=== PATIENT | female | born 1965 | race Two or more races ===

== ENCOUNTER 2022-03-05 09:57 | Outpatient (REF) | payer MEDICARE, MEDICAID, SELFPAY ==
--- NOTE | ~2022-03-05 | XR_ITS ---
EXAMINATION: XR SHOULDER, LEFT CLINICAL INFORMATION: Pain. COMPARISON: None TECHNIQUE: AP external rotation, Grashey, scapular Y, and axillary views of the left shoulder. FINDINGS: There is mild reduction in the left AC joint space with inferior spurring. The glenohumeral joint space is normal. No visible acute fracture or dislocation seen. The soft tissues are normal. XR/XR shoulder LT min 2V IMPRESSION: Mild degenerative changes right AC joint. No acute fracture or dislocation seen.
[2022-03-05 10:35] LABS: Hematocrit 36.7 % (37.0-47.0); Hemoglobin 11.5 g/dl (12.0-16.0); Mean Corpuscular HGB Conc 31.3 g/dl (31.0-35.0); Mean Corpuscular Hemoglobin 26.9 pg (27.0-33.0); Mean Corpuscular Volume 85.7 fL (80.0-98.0); Mean Platelet Volume 9.1 fL (9.4-12.3); Platelet Count 236 X10*3/uL (160-400); Red Blood Count 4.28 X10*6/uL (4.20-5.50); Red Cell Distribution Width 13.2 % (11.0-16.0); White Blood Count 5.1 X10*3/uL (4.8-10.8)
[2022-03-05 10:45] LABS: Estimated Average Glucose 117 mg/dL; Hemoglobin A1c % 5.7 %
[2022-03-05 11:18] LABS: Alanine Aminotransferase 46 U/L (0-31); Alkaline Phosphatase 127 U/L (39-117); Anion Gap 16 (12-20); Aspartate Amino Transferase 39 U/L (5-31); Bilirubin Total 0.4 mg/dL (0.0-1.0); Blood Urea Nitrogen 14 mg/dL (9-16); Calcium 9.6 mg/dL (8.4-10.2); Carbon Dioxide 27 mmol/L (22-29); Chloride 103 mmol/L (96-108); Cholesterol 247 mg/dL; Estimated Glomerular Filt Rate > 60; Glucose Random 107 mg/dL (60-115); HDL Cholesterol 55 mg/dL; Iron 73 mcg/dL (30-160); LDL Cholesterol Calculated 161 mg/dl; Percent Iron Saturation 17 % (15-50); Potassium 4.3 mmol/L (3.3-5.1); Sodium 142 mmol/L (135-145); Total Iron Binding Capacity 425 mcg/dL (228-428); Total Protein 7.4 g/dL (6.5-8.0); Triglycerides 157 mg/dL; Unsaturated Iron Binding 352 ug/dL
[2022-03-05 11:41] LABS: Ferritin 15 ng/mL (10-250); TSH reflex Free T4 0.99 uIU/mL (0.32-4.0); Vitamin D 25-OH Total 41.9 ng/mL (>30)
[2022-03-05 11:51] LABS: Folate 6.8 ng/mL (> or = 4.0); Vitamin B12 > 2000 pg/mL (200-900)
[2022-03-08 12:42] LABS: Calcium (PTHI) 9.6 mg/dL (8.6-10.4); PTHI 59 pg/mL (16-77)
== END 2022-03-05 09:58 | disposition home or self-care (01) ==
LOC: HO.LAB 09:57
PROVIDERS: PCP Internal Medicine Geriatric Medicine; Visit Provider Internal Medicine Geriatric Medicine
DX: M25.512 Pain in left shoulder (principal); F33.9 Major depressive disorder, recurrent, unspecified; Z98.84 Bariatric surgery status
CPT/HCPCS: 36415; 73030; 80053; 80061; 82306; 82607; 82728; 82746; 83036; 83540; 83970; 84443; 85027

== ENCOUNTER 2022-12-23 10:15 | Outpatient (REF) | payer MEDICARE, MEDICAID, SELFPAY ==
[2022-12-23 11:17] LABS: MANUAL DIFF FLAG NO
[2022-12-23 11:47] LABS: Basophils Percent Auto 0.4 % (0-2); Eosinophils Absolute Auto 0.1 X10*3/uL (0.0-0.4); Eosinophils Percent Auto 2.2 % (0-4); Hematocrit 37.7 % (37.0-47.0); Hemoglobin 11.6 g/dl (12.0-16.0); Imm Gran Abs Auto 0.02 X10*3/uL (0.00-0.03); Imm Gran Pct Auto 0.4 % (0.0-0.4); Lymphocytes Absolute Auto 1.4 X10*3/uL (1.2-4.9); Lymphocytes Percent Auto 25.8 % (20-40); Mean Corpuscular HGB Conc 30.8 g/dl (31.0-35.0); Mean Corpuscular Hemoglobin 25.7 pg (27.0-33.0); Mean Corpuscular Volume 83.6 fL (80.0-98.0); Mean Platelet Volume 9.7 fL (9.4-12.3); Monocytes Absolute Auto 0.4 X10*3/uL (0.1-1.2); Neutrophils Absolute Auto 3.6 x10*3/uL (2.0-8.3); Neutrophils Percent Auto 64.2 % (45-73); Platelet Count 228 X10*3/uL (160-400); Red Blood Count 4.51 X10*6/uL (4.20-5.50); Red Cell Distribution Width 14.9 % (11.0-16.0); White Blood Count 5.6 X10*3/uL (4.8-10.8)
[2022-12-23 11:57] LABS: Estimated Average Glucose 117 mg/dL; Hemoglobin A1c % 5.7 % (<6.0)
[2022-12-23 13:02] LABS: Alanine Aminotransferase 28 U/L (0-31); Albumin Level 3.8 g/dL (3.5-5.0); Alkaline Phosphatase 138 U/L (39-117); Anion Gap 10 (12-20); Aspartate Amino Transferase 31 U/L (5-31); Bilirubin Total 0.2 mg/dL (0.0-1.0); Blood Urea Nitrogen 13 mg/dL (9-16); Calcium 9.5 mg/dL (8.4-10.2); Carbon Dioxide 27 mmol/L (22-29); Chloride 105 mmol/L (96-108); Cholesterol 276 mg/dL (<200); Estimated Glomerular Filt Rate > 60; Glucose Random 122 mg/dL (60-115); HDL Cholesterol 54 mg/dL (>40); Iron 40 mcg/dL (30-160); LDL Cholesterol Calculated 174 mg/dL (<100); Percent Iron Saturation 12 % (15-50); Potassium 3.7 mmol/L (3.3-5.1); Sodium 138 mmol/L (135-145); Total Iron Binding Capacity 343 mcg/dL (228-428); Total Protein 7.5 g/dL (6.5-8.0); Triglycerides 242 mg/dL (<150); Unsaturated Iron Binding 303 ug/dL
[2022-12-23 13:50] LABS: Folate 11.5 ng/mL (> or = 4.0); Vitamin B12 > 2000 pg/mL (200-900)
== END 2022-12-23 10:16 | disposition home or self-care (01) ==
LOC: HO.HHCL 10:15
PROVIDERS: Visit Provider Internal Medicine Geriatric Medicine
DX: F31.9 Bipolar disorder, unspecified (principal); K22.711 Barrett's esophagus with high grade dysplasia; Z98.84 Bariatric surgery status; Z86.39 Personal history of other endocrine, nutritional and metabolic disease
CPT/HCPCS: 36415; 80053; 80061; 80354; 80358; 82607; 82746; 83036; 83540; 85025

== ENCOUNTER 2023-01-10 09:36 | Outpatient (REF) | payer MEDICARE, MEDICAID, SELFPAY ==
--- NOTE | ~2023-01-10 | MM_ITS ---
EXAMINATION: MM SCREENING DIGITAL BREAST TOMOSYNTHESIS, BILATERAL CLINICAL INFORMATION: Screening. Asymptomatic. COMPARISON: Mammography: This study is compared with prior exams dating back to 2016. TECHNIQUE: Digital breast tomosynthesis is performed in both the craniocaudal and mediolateral oblique views along with computer-aided detection (CAD). Synthesized 2D images are generated from the tomosynthesis. FINDINGS: The breasts are almost entirely fatty (ACR BI-RADS breast composition Category a). There are no significant masses, abnormal calcifications, or other abnormalities. MM/MM tomosynthesis screening BI IMPRESSION: No mammographic evidence of malignancy. ASSESSMENT: BI-RADS BI-RADS 1 - Negative RECOMMENDATION: Routine annual mammography screening. 1 year F/U This examination should not preclude the clinical evaluation of a suspicious palpable abnormality. This patient's information was entered into a reminder system with a target due date for their next mammogram.
== END 2023-01-10 09:37 | disposition home or self-care (01) ==
LOC: HO.MAMMO 09:36
PROVIDERS: PCP Internal Medicine Geriatric Medicine; Visit Provider Internal Medicine Geriatric Medicine
DX: Z12.31 Encounter for screening mammogram for malignant neoplasm of breast (principal)
CPT/HCPCS: 77063; 77067

== ENCOUNTER → 2023-01-10 11:45 | Outpatient (BNV) | payer MEDICARE, MEDICAID, SELFPAY | PROVIDERS: PCP Internal Medicine Geriatric Medicine; Visit Provider Radiology Diagnostic Radiology | DX: Z12.31 Encounter for screening mammogram for malignant neoplasm of breast (principal) | CPT/HCPCS: 77063; 77067 ==

== ENCOUNTER 2023-01-25 16:18 | Outpatient (REF) | payer MEDICARE, MEDICAID, SELFPAY ==
[2023-02-01 10:19] LABS: Flurazepam Metabolite,GCMS Ur NEGATIVE; Nordiazepam, GCMS Urine NEGATIVE
[2023-02-01 10:20] LABS: Alphahydroxymidazolam,GCMS Ur NEGATIVE; Alphahydroxytriazolam, GCMS Ur NEGATIVE; Alprazolam, GCMS Urine NEGATIVE; Lorazepam GCMS Urine NEGATIVE; Oxazepam, GCMS Urine NEGATIVE; Temazepam, GCMS Urine NEGATIVE
== END 2023-01-25 16:19 | disposition home or self-care (01) ==
LOC: HO.HHCLNP 16:18
PROVIDERS: Visit Provider Internal Medicine Geriatric Medicine
DX: F31.9 Bipolar disorder, unspecified (principal)
CPT/HCPCS: 80346

== ENCOUNTER 2023-02-09 19:33 | Outpatient (REF) | payer MEDICARE, MEDICAID, SELFPAY ==
[2023-02-14 12:52] LABS: Alphahydroxymidazolam,GCMS Ur NEGATIVE; Alphahydroxytriazolam, GCMS Ur NEGATIVE; Alprazolam, GCMS Urine NEGATIVE; Lorazepam GCMS Urine NEGATIVE; Nordiazepam, GCMS Urine NEGATIVE; Oxazepam, GCMS Urine NEGATIVE; Temazepam, GCMS Urine NEGATIVE
[2023-02-14 12:53] LABS: Flurazepam Metabolite,GCMS Ur NEGATIVE
== END 2023-02-09 19:34 | disposition home or self-care (01) ==
LOC: HO.HHCLNP 19:33
PROVIDERS: Visit Provider Internal Medicine Geriatric Medicine
DX: F31.9 Bipolar disorder, unspecified (principal)
CPT/HCPCS: 80346

== ENCOUNTER 2024-01-11 17:32 | Outpatient (REF) | payer MEDICARE, MEDICAID, SELFPAY ==
[2024-01-13 14:53] LABS: Alphahydroxymidazolam,GCMS Ur NEGATIVE; Alphahydroxytriazolam, GCMS Ur NEGATIVE; Alprazolam, GCMS Urine NEGATIVE; Flurazepam Metabolite,GCMS Ur NEGATIVE; Lorazepam GCMS Urine NEGATIVE; Nordiazepam, GCMS Urine NEGATIVE; Oxazepam, GCMS Urine NEGATIVE; Temazepam, GCMS Urine NEGATIVE
[2024-01-16 12:15] LABS: Fentanyl, Ur NEGATIVE
[2024-01-16 12:16] LABS: Norfentanyl, Ur NEGATIVE
== END 2024-01-11 17:33 | disposition home or self-care (01) ==
LOC: HO.HHCLNP 17:32
PROVIDERS: Visit Provider Internal Medicine Geriatric Medicine
DX: F31.9 Bipolar disorder, unspecified (principal)
CPT/HCPCS: 80346; 80354

== ENCOUNTER 2024-02-14 16:45 | Outpatient (REF) | payer MEDICARE, MEDICAID, SELFPAY ==
[2024-02-16 12:33] LABS: Alphahydroxymidazolam,GCMS Ur NEGATIVE; Alphahydroxytriazolam, GCMS Ur NEGATIVE; Alprazolam, GCMS Urine NEGATIVE; Aminoclonazepam, GCMS Urine 419 (H); Flurazepam Metabolite,GCMS Ur NEGATIVE; Lorazepam GCMS Urine NEGATIVE; Nordiazepam, GCMS Urine NEGATIVE; Oxazepam, GCMS Urine NEGATIVE; Temazepam, GCMS Urine NEGATIVE
== END 2024-02-14 16:46 | disposition home or self-care (01) ==
LOC: HO.HHCLNP 16:45
PROVIDERS: Visit Provider Internal Medicine Geriatric Medicine
DX: F31.9 Bipolar disorder, unspecified (principal)
CPT/HCPCS: 80346

== ENCOUNTER 2024-07-17 14:58 | Outpatient (REF) | payer MEDICARE, MEDICAID, SELFPAY ==
[2024-07-17 17:11] LABS: Creatinine Urine 105.55 mg/dL; Microalbum/Creatinine Ratio Ur 19.8 ug/mg cr (<30)
[2024-07-17 17:12] LABS: Alanine Aminotransferase 28 U/L (0-31); Albumin Level 3.8 g/dL (3.5-5.0); Alkaline Phosphatase 184 U/L (39-117); Anion Gap 13 (12-20); Aspartate Amino Transferase 28 U/L (5-31); Bilirubin Total 0.2 mg/dL (0.0-1.0); Blood Urea Nitrogen 10 mg/dL (9-16); Calcium 9.1 mg/dL (8.4-10.2); Carbon Dioxide 24 mmol/L (22-29); Chloride 107 mmol/L (96-108); Cholesterol 145 mg/dL (<200); Estimated Glomerular Filt Rate > 60; Glucose Random 165 mg/dL (60-115); HDL Cholesterol 56 mg/dL (>40); Iron 38 mcg/dL (30-160); LDL Cholesterol Calculated 63 mg/dL (<100); Percent Iron Saturation 11 % (15-50); Sodium 140 mmol/L (135-145); Total Iron Binding Capacity 341 mcg/dL (228-428); Total Protein 7.6 g/dL (6.5-8.0); Triglycerides 134 mg/dL (<150); Unsaturated Iron Binding 303 ug/dL
[2024-07-17 17:32] LABS: Ferritin 14 ng/mL (10-250)
--- OUTSIDE RECORDS SUMMARY | 2024-07-17 17:51 | XMS_ITS | Encounter Summary ---
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 Encounter Details Date Type Department Care Team (Latest Contact Info) Description 07/09/2024 10:00 AM EDT Clinical Support [facility] [address] [place] [address] Kassidy Watson RN Bipolar affective disorder, remission status unspecified (CMS/HCC) (Primary Dx) Social History Tobacco Use Types Packs/Day Years Used Date Smoking Tobacco: Never Alcohol Use Standard Drinks/Week Comments Never 0 (1 standard drink = 0.6 oz pur e alcohol) Depression Answer Date Recorded Patient Health Questionnaire-9 Score 8 07/10/2024 Patient Health Questionnaire-9 Score 8 07/10/2024 Last PHQ-9: Questionnaire Data Not on file 0 07/10/2024 Housing Stability Answer Date Recorded What is your housing situation today? I have housing today, but I am worried about losing housing in the future 02/14/[address] you li ve. Do you have problems with any of the following? None of the above 02/14/2023 Food Insecurity Answer Date Recorded Within the past 12 months, y ou worried that your food would run out before you got money to buy more: Never True 02/14/2023 Within the past 12 months,th e food you bought just didn't last and you didn't have enough money to get more: Never True Transportation Answer Date Recorded In the past 12 months, has l ack of transportation kept you from medical appts, meetings, work or from getting things needed for daily living? No 02/14/2023 Utilities Answer Date Recorded In the past 12 months, has t he electric, gas, oil or water company threatened to shut off services in your home? 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 Prescribed Clonazepam 1mg Q8hr. States she takes Clonazepam as prescribed and her last dose taken was last week . Continues to deny smoking cigarettes, ETOH use, Illicit drug use and marijuana use. States she feels like Clonazepam does help with her anxiety. She denies any issues sleeping when she has her clonazepam. Stated she has not heard from at all. Pt was a [facility] for CARDIOTHORACIC ANESTHESIA TECHNICIAN appt 05/31/24. 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 Pt currently prescribed Clonazepam 1mg Q8hr. OPERATION SHIFT SUPERVISOR verified today. Rx last filled on 06/22/24. Pill count performed. Pt has 0 clonazepam remaining, anticipated she would have 0 at least. UTOX completed. Positive for TCA, Negative for AMP, BAR, BUP, BZO, BREA, FTY, MDMA, MET, MOP, MTD, OXY, PCP, THC. UTOX as expected since she hasn't used Clonazepam since 07/05/24. Call placed to , pt is now scheduled to speak with someone tomorrow. Will send request for Clonazepam refill to PCP. LastP visit was 07/25/23, scheduled next 09/03/24. A: CARDIOTHORACIC ANESTHESIA TECHNICIAN Revisit, Chronic BZO use r/t anxiety. P: Pt to continue taking medication only as prescribed; Next CARDIOTHORACIC ANESTHESIA TECHNICIAN RV appointment scheduled for 08/06/24 @ 10:30am, F/U sooner PRN. Appointment reminder given. Pt verbalized understanding and agreed to plan. documented in this encounter Plan of Treatment Upcoming Encounters Date Type Department Care Team (Late st Contact Info) Description 08/06/2024 10:30 AM EDT Clinical Support [address] [address] Kassidy Watson RN 09/03/2024 11:00 AM EDT Office Visit [facility] [address] [place] [phone] NameShon MD [address] [place] [phone] documented as of this encounter Procedures Procedure Name Priority Date/Time Associated Diagnosis Comments POCT MARGE-14 URINE DRUG SCREEN Routine 07/09/2024 10:26 AM EDT Bipolar affective disorder, remission status unspecified (CMS/HCC) documented in this encounter Results * POCT MARGE-14 Urine Drug Screen (07/09/2024 10:26 AM EDT) TCA, Urine Positive Urine Urine specimen obtained by clean catch procedure / Unknown 07/09/2024 10:26 AM EDT Narrative Kassidy Watson, RN - 07/09/2024 10:26 AM EDT UTOX cup Lot#[id number] Exp. 12/19/25 Internal Pass Control Shon Darling MD POINT OF CARE TEST ENTER/EDIT OR DERABLES Final Result documented in this encounter Visit Diagnoses Diagnosis Bipolar affective disorder, remission status unspecified (CMS/HCC)- Primary documented in this encounter Additional Health Concerns Assessment Noted Time PHQ-9 Depression Total Score: 6 08/19/19 23 11:30 AM EDT documented as of this encounter Care Teams Digital X Ray Service Engineer Relationship Specialty Start Date End Date Shon Darling MD [address] [place] [phone] PCP - General Family Medicine 07/03/15 documented as of this encounter
--- OUTSIDE RECORDS SUMMARY | 2024-07-17 17:51 | XMS_ITS | Encounter Summary ---
Author Organization [employer] Address [address] [place] [address] Care Team Providers Care Senior Net Programmer Name Role Phone Name, Shon HERNÁDNEZ Primary Care Provider [phone] Reason for Visit * Reason Onset Date Comments Referral 07/27/2022 Encounter Details Date Type Department Care Team ([facility] st Contact Info) Description 07/27/2022 Telephone [facility] [address], [place] [id number] Name, MD Shon [address] [place] [address] Referral Social History Tobacco Use Types Packs/Day Years Used Date Smoking Tobacco: Never Assessed Comments Unknown Sex and Gender Information Value Date Recorded Sex Assigned at Female 03/01/2022 10:14 AM EDT Legal Sex Female 10:14 AM EDT Gender Identity Female 03/01/2022 10:14 AM EDT Sexual Orientation Straight 03/01/2022 10 :14 AM EDT COVID-19 Exposure Response Date Recorded In the last 10 days, have yo u been in contact with someone who was confirmed or suspected to have Coronavirus/COVID-19? No / Unsure 07/26/2022 10:40 AM EDT documented as of this encounter Miscellaneous Notes * Telephone Encounter - Doreen Blanco RN - 07/27/2022 10:47 AM EDT T/C placed to pt via [employer] Information Assistant [facility] #[id number]. Pt states she is requesting eye care referral for eye exam. States that she has had blurry vision and hasn't been able to read for 5 years. States she used to see an eye doctor and had two separate eye glass rx but that office closed. Advised will send request for referral to pcp. * Telephone Encounter - Feliz Han - 07/27/2022 9:33 AM EDT Tc from pt requesting a referral to be [facility] at [facility]. Please contact pt at [phone] documented in this encounter Plan of Treatment Upcoming Encounters Date Type Department Care Team (Late st Contact Info) Description 08/06/2024 10:30 AM EDT Clinical Support [address] [address] Kassidy Watson RN 09/03/2024 11:00 AM EDT Office Visit [address] [address] Name, MD Shon [address] [place] [phone] documented as of this encounter Visit Diagnoses Diagnosis Blurred vision, bilateral- Primary Other specified visual disturbances documented in this encounter Care Teams Senior Net Programmer Relationship Specialty Start Date End Date Name, MD Shon [address] [place] [phone] PCP - General Family Medicine 07/03/15 documented as of this encounter
--- OUTSIDE RECORDS SUMMARY | 2024-07-17 17:51 | XMS_ITS | Clinical Summary ---
Author Organization [employer] Address [address] [place] [address] Care Team Providers Care Street Light Servicer Helper Name Role Phone Name, Shon HERNÁNDEZ Primary Care Provider [phone] Allergies No known active allergies Medications * This document contains information received from the source organization and may not represent a complete record from that organization. Cyanocobalamin (B-12) 2500 MCG sublingual tablet DISSOLVE 1 TABLET UNDER THE TONGUE EVERY DAY 02/16/20 22 Active famotidine (Pepcid) 20 MG tablet TAKE 1 TABLET BY MOUTH AT BEDTIME 03/16/20 22 Active lactulose (Chronulac) 10 GM/15ML solution take 15 milliliter by oral route every day as needed for constipation 07/24/19 21 Active albuterol (2.5 MG/3ML) 0.083% nebulizer solutionIndica tions:Asthma, unspecified asthma severity, unspecified whether complicated, unspecified whether persistent inhale 3 milliliter by nebulization route every 4 hours as needed 90 mL 1 06/10/19 23 Active albuterol 108 (90 Base) MCG/ACT inhalerIndicat ions:Asthma, unspecified asthma severity, unspecified whether complicated, unspecified whether persistent inhale 2 puff by inhalation route every 4 - 6 hours as needed 18 g 1 06/10/19 23 Active Blood Pressure kitIndications :Hypertension, unspecified type Use once a day 1 kit 07/01/19 23 Active fluticasone (Flonase) 50 MCG/ACT nasal sprayIndicatio ns:Asthma, unspecified asthma severity, unspecified whether complicated, unspecified whether persistent USE 2 SPRAYS IN EACH NOSTRIL ONCE DAILY 48 g 11/20/19 23 Active acetaminophen (Tylenol 8 Hour) 650 MG ER tabletIndicati ons:New onset type 2 diabetes mellitus (CMS/HCC) TAKE 1 TABLET BY MOUTH EVERY 8 HOURS NEEDED. SWALLOW WHOLE WITH WATER. DO NOT BREAK, CRUSH, DISSOLVE OR CHEW. 90 tablet 05/24/19 24 Active Diclofenac Sodium 1 % gel APPLY TO THE AFFECTED AREA(S) TOPICALLY 2 GRAMS TWICE DAILY 100 g 3 05/24/19 24 Active Blood Glucose Monitoring Suppl ([employer]) w/Device kitIndications :New onset type 2 diabetes mellitus (CMS/HCC) Use to check blood sugar by subcutaneous route once a day 1 kit 05/30/19 24 Active Lancets (ThromboVision DelNvigen) lancets 30GIndications :New onset type 2 diabetes mellitus (CMS/HCC) 1 each by Other route Once daily. 100 each 3 05/30/19 24 Active Blood Glucose Monitoring Suppl ([employer]) w/Device kit TEST BLOOD SUGAR ONCE DAILY 1 kit 06/01/19 24 Active SUMAtriptan (Imitrex) 50 MG tabletIndicati ons:Migraine without status migrainosus, not intractable, unspecified migraine type TAKE 1 TABLET BY MOUTH AT ONSET OF MIGRAINE. MAY REPEAT ONCE AFTER 2 HOURS IF NEEDED. DO NOT EXCEED 4 TABLETS IN 24 HOURS 10 tablet 08/03/19 24 Active lidocaine (Xylocaine) 2 % solution Take 10 mL by mouth every 6 (six) hours if needed for moderate pain. 08/21/19 23 Active pantoprazole (ProtoNix) 40 MG EC tablet Take 40 mg by mouth before breakfast and before evening meal. 11/10/19 23 Active cholecalcifero l VITAMIN D (Vitamin D-3) 50 MCG (1999) tablet TAKE 1 TABLET BY MOUTH EVERY MORNING 90 tablet 1 02/15/20 24 Active Multiple Vitamin (Multivitamin) tabletIndicati ons:Asthma, unspecified asthma severity, unspecified whether complicated, unspecified whether persistent TAKE 1 TABLET BY MOUTH EVERY MORNING WITH FOOD 90 tablet 05/14/19 25 Active sertraline (Zoloft) 100 MG tabletIndicati ons:Asthma, unspecified asthma severity, unspecified whether complicated, unspecified whether persistent TAKE 1 TABLET BY MOUTH EVERY MORNING 90 tablet 05/14/19 25 Active melatonin 5 MG tabletIndicati ons:Insomnia, unspecified type TAKE 1 TABLET BY MOUTH AT BEDTIME 30 tablet 05/14/19 25 Active loratadine (Claritin) 10 MG tablet TAKE 1 TABLET BY MOUTH EVERY MORNING 90 tablet 3 06/06/19 25 Active calcium carbonate (Calcium Antacid) 500 MG chewable tabletIndicati ons:Heartburn CHEW AND SWALLOW 1 TABLET BY MOUTH THREE TIMES DAILYCHEW AND SWALLOW 1 TABLET BY MOUTH THREE TIMES DAILY 60 tablet 3 06/20/19 25 Active Lancets (OneTouch Delica Plus [id number]) misc TEST BLOOD SUGAR ONCE DAILY 100 each 06/29/19 25 Active OneTouch Verio test stripIndicatio ns:New onset type 2 diabetes mellitus (CMS/HCC) TEST BLOOD SUGAR ONCE DAILY 100 strip 5 06/29/19 25 Active metFORMIN (Glucophage) 500 MG tablet TAKE 1 TABLET BY MOUTH TWICE DAILY IN THE MORNING AND IN THE EVENING 60 tablet 06/29/19 25 Active atorvastatin (Lipitor) 20 MG tablet TAKE 1 TABLET BY MOUTH EVERY MORNING 30 tablet 06/29/19 25 Active metoprolol tartrate (Lopressor) 25 MG tabletIndicati ons:Hypertensi on, unspecified type TAKE 1 TABLET BY MOUTH TWICE DAILY IN THE MORNING AND AT BEDTIME 60 tablet 06/29/19 25 Active risperiDONE (RisperDAL) 2 MG tabletIndicati ons:Mood disorder (CMS/HCC) TAKE 1 TABLET BY MOUTH AT BEDTIME 30 tablet 06/29/19 25 Active mirtazapine (Remeron) 7.5 MG tablet TAKE 1 TABLET BY MOUTH AT BEDTIME 30 tablet 06/29/19 25 Active clonazePAM (KlonoPIN) 1 MG tabletIndicati ons:Bipolar I disorder (CMS/HCC) TAKE 1 TABLET BY MOUTH THREE TIMES DAILY IN THE MORNING, AT NOON, AND AT BEDTIME. 84 tablet 07/10/19 25 2024 Active glucose blood test stripIndicatio ns:New onset type 2 diabetes mellitus (CMS/HCC) 1 each by Other route Once daily. 100 each 05/30/19 24 2024 Discontinued OneTouch Delica Lancets 33G misc Use to test blood sugar 1 time daily 100 each 06/01/19 24 2024 Discontinued metFORMIN (Glucophage) 500 MG tablet Take 1 tablet (500 mg) by mouth with breakfast and with evening meal. 60 tablet 07/25/19 24 2024 Discontinued Calcium Antacid 500 MG chewable tabletIndicati ons:Heartburn CHEW AND SWALLOW 1 TABLET BY MOUTH THREE TIMES DAILY 60 tablet 3 10/12/19 24 2024 Discontinued(R eorder (will not trigger notification to Pharmacy)) risperiDONE (RisperDAL) 2 MG tabletIndicati ons:Mood disorder (CMS/HCC) TAKE 1 TABLET BY MOUTH AT BEDTIME 30 tablet 04/20/20 24 2024 Discontinued mirtazapine (Remeron) 7.5 MG tablet TAKE 1 TABLET BY MOUTH AT BEDTIME 30 tablet 04/20/20 24 2024 Discontinued metoprolol tartrate (Lopressor) 25 MG tabletIndicati ons:Hypertensi on, unspecified type TAKE 1 TABLET BY MOUTH TWICE DAILY IN THE MORNING AND AT BEDTIME 60 tablet 04/20/20 24 2024 Discontinued atorvastatin (Lipitor) 20 MG tablet TAKE 1 TABLET BY MOUTH EVERY MORNING 30 tablet 04/20/20 24 2024 Discontinued clonazePAM (KlonoPIN) 1 MG tabletIndicati ons:Bipolar I disorder (CMS/HCC) TAKE 1 TABLET BY MOUTH THREE TIMES DAILY IN THE MORNING, AT NOON, AND AT BEDTIME. 21 tablet 06/05/19 25 2024 Discontinued(R eorder (will not trigger notification to Pharmacy)) clonazePAM (KlonoPIN) 1 MG tabletIndicati ons:Bipolar I disorder (CMS/HCC) TAKE 1 TABLET BY MOUTH THREE TIMES DAILY IN THE MORNING, AT NOON, AND AT BEDTIME. 21 tablet 06/20/19 25 2024 Discontinued(R eorder (will not trigger notification to Pharmacy)) Active Problems Problem Noted Date Diagnosed Date Anxiety 07/10/2024 Restless leg syndrome 06/22/2024 Assessment & Plan (06/22/2024 9:52 AM EST): Sx seem to be correlated with discontinuation of clonazepam Will obtain iron labs to r/o JOSE Advised pt she has fills for clonazepam available at pharmacy Emphasized importance of attending f/u with HEAT TREAT OPERATOR for pill counts and Utox screening, message sent to HEAT TREAT OPERATOR RN to reschedule f/u Pt agreeable with plan New onset type 2 diabetes mellitus 05/24/2023 Assessment & Plan (06/22/2024 9:49 AM EST): A1c at goal today 6.3 Maintenance BMP: due Microalbumin: due Foot Exam: UTD, normal Eye Exam: due Lipid panel: due Statin: yes ASA: no ALO/ARB: no Encouraged regular aerobic exercise for improved glycemic control Encouraged daily foot checks Encouraged lean protein snacks and to avoid foods high in sugar and simple carbohydrates Treatment Goals: A1c goal: <7% FBG goal: <130 2 hour post prandial goal: <180 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/07/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 Bipolar disorder 04/27/2022 Systemic sclerosis 04/27/2022 Transaminitis 04/27/2022 Vertigo 04/27/2022 Hypertensive disorder 12/27/2017 Migraine 02/23/2016 Dysphagia 07/24/2015 Chronic low back pain 07/24/2015 Resolved Problems Problem Noted Date Diagnosed Date Resolved Date Class 1 obesity 12/17/2022 12/21/2022 Interstitial lung disease 07/07/2022 Epistaxis 04/27/2022 12/21/2022 Hearing loss 04/27/2022 12/21/2022 Lumbago with sciatica 03/07/20182022 Lung mass 11/01/2017 08/18/2022 Fatigue 06/15/2017 12/21/2022 Hypercholesterolemia 07/24/2015 023 Impaired glucose tolerance 07/24/2015 0 05/24/2023 Weight decreased 07/24/2015 12/21/2022 Nonlocalized pain of knee region 02/12/2013 12/21/2022 Encounters * This document contains information received from the source organization and may not represent a complete record from that organization. Date Type Department Care Team Description 07/10/2024 Patient Outreach [address] [address] Name, MD Shon Care Coordination (CHW outreach for SDOH PT-1 and food needs-referral completed /) 07/09/2024 10:00 AM EDT Clinical Support [address] [address] Kassidy Watson RN Bipolar affective disorder, remission status unspecified ([facility]) (Primary Dx) 07/09/2024 Refill [facility] [address] [place] [address] Shon Darling MD Bipolar I disorder ([facility]) 07/09/2024 Refill [facility] [address] [place] [address] Kassidy Watson RN Bipolar I disorder ([facility]) 07/09/2024 Travel 06/28/2024 Refill [facility] [address] [place] [address] Shon Darling MD New onset type 2 diabetes mellitus ([facility]); Hypertension, unspecified type; Mood disorder ([facility]) 06/22/2024 9:00 AM EST Office Visit [facility] [address] [place] [phone] Scott, Alexxis, HYDRAMATIC SPECIALIST Restless leg syndrome (Primary Dx); New onset type 2 diabetes mellitus ([facility]) 06/22/2024 Telephone [facility] [address] [place] [phone] Kassidy Watson RN Reschedule HEAT TREAT OPERATOR RV appt was [facility] 05/31/24 06/20/2024 Refill [facility] [address] [place] [address] Shon Darling MD Heartburn 06/20/2024 Refill [facility] [address] [place] [address] Shon Darling MD Bipolar I disorder ([facility]) 06/12/2024 Telephone [facility] [address] [place] [phone] Shon Darling MD Chart Prep 06/06/2024 Refill [facility] [address] [place] [address] Shon Darling MD 06/05/2024 Telephone [facility] [address] [place] [address] Shon Darling MD Nurse Triage; Reschedule HEAT TREAT OPERATOR appt [facility] from 05/31/24 06/04/2024 Refill [facility] [address] [place] [address] Shon Darling MD Bipolar I disorder ([facility]) 05/31/2024 Telephone [facility] [address] [place] [address] Kassidy Watson, MARY JANE [facility] HEAT TREAT OPERATOR RV today 05/31/2024 Telephone [facility] [address] [place] [address] Kassidy Watson RN Recommend HEAT TREAT OPERATOR Tier 1 05/13/2024 Refill [facility] [address] [place] [address] Shon Darling MD Asthma, unspecified asthma severity, unspecified whether complicated, unspecified whether persistent; Insomnia, unspecified type 04/20/2024 Refill [facility] [address] [place] [address] Lo Costa MD Mood disorder ([facility]); Hypertension, unspecified type 04/19/2024 Refill [facility] [address] [place] [address] Shon Darling MD Bipolar I disorder ([facility]) from Last 3 Months Immunizations Name Administration Dates Next Due Hep B, adult 02/03/2021,06/19/2019,09/08/2016 Influenza injectable quadriv alent IIV4 with preservative 03/07/2018,01/19/2016 Influenza injectable quadriv alent preservative free 04/11/2023,02/25/2022,02/03/2021,02/20,03/20/2019,12/30/2018,07/24/2015 Influenza, IIV3, injectable 06/26/2019, 3 Pneumococcal Conjugate PCV 20 07/25/2023 Pneumococcal Polysaccharide PPSV23 12/16/2015 Tdap 12/20/2022,11/01/2012 Zoster, Recombinant 09/30/2021,07/24/2021 Social History Tobacco Use Types Packs/Day Years Used Date Smoking Tobacco: Never Tobacco Cessation:Counseling Given: Not Answered Alcohol Use Standard Drinks/Week Comments Never 0 [...] Orientation Straight 03/01/2022 10 :14 AM EDT Last Filed Vital Signs Vital Sign Reading Time Taken Comments Blood Pressure 116/76 06/22/2024 8:54 AM EST Pulse 80 06/22/2024 8:54 AM EST Temperature 36.9 ??C (98.4 ??F) 06/22/2024 8:54 AM ES T Respiratory Rate 18 06/22/2024 8:54 AM EST Oxygen Saturation 99% 06/22/2024 8:54 AM EST Inhaled Oxygen Concentration - - Weight 72.2 kg (159 lb 3.2 oz) 06/22/2024 8:54 A M EST Height 154.9 cm (5' 1 ) 07/25/2023 2:39 PM EDT Body Mass Index 30.08 07/25/2023 2:39 PM EDT Plan of Treatment Upcoming Encounters Date Type Department Care Team (Late st Contact Info) Description 08/06/2024 10:30 AM EDT Clinical Support [facility] [address] [place] [phone] Kassidy Watson RN 09/03/2024 11:00 AM EDT Office Visit [facility] [address] [place] [phone] Name, [place] [address] Health Maintenance Due Date Last Done Comments CT Colonography 1965 Colonoscopy 1965 Colorectal Cancer Screening 1965 FIT DNA/Cologuard 1965 FIT 1965 FOBT 1965 Sigmoidoscopy 1965 Diabetes: Foot Exam 1975 Alcohol/Substance Use Screening 1977 Diabetes: Urine Protein Screening 1984 07/17/2024 Dental Oral Exam 09/09/2020 03/11/2020 Dental Prophylaxis 03/07/2022 09/03/2021, 0 09/11/2020, 03/21/2020 Dental X-Ray: Bitewings 09/04/2022 09/03/2021, 03/11 Dental X-Ray: Full Mouth 03/12/2023 03/11/2020 SDOH Screening 08/19/2023 08/18/2022 Lipid Panel 12/24/2023 07/17/2024, 12/01, 02/06/2021 COVID-19 Vaccine ( season) 2024 03/17/2021, 07/14/2020, 06/16/2020 Influenza Vaccine (#1) 2024 , 02/25/2022, 02/03/2021, Additional history exists Mammogram 01/11/2024 01/10/2023, 12/31, 07/26/2018 Tobacco Screening 07/24/2024 07/25/2023 Diabetes: Hemoglobin A1C 12/20/2024 025, 05/24/2023, 12/23/2022, Additional history exists Depression Screening 07/10/2025 07/10/2024, 07/11/19 Eye Exam 10/25/2025 10/26/2023, 1008/2022, 02/03/2023, Additional history exists Cervical Cancer Screening 02/12/2026 HPV/Cotest 02/12/2026 02/12/2021 Pap Smear 02/12/2026 02/12/2021 DTaP/Tdap/Td Vaccines (3 - Td or Tdap) 12/20/2032 12/20/2022, 11/01/2012 RSV Patients and Patients Aged 60 years or older (1 - 1-dose 75+ series) 2040 Hepatitis B Vaccines Completed 02/03/2021, 06/19/2019, 09/08/2016 HIV Screening Completed 07/24/2021 Hepatitis C Screening Completed 07/24/2021 Zoster Vaccines Completed 09/30/2021, 07/24/2021 Pneumococcal Vaccine: 50+ Years Completed 07/25/2023, 12/16/2015 HIB Vaccines Aged Out No longer eligi ble based on patient's age to complete this topic HPV Vaccines Aged Out No longer eligi ble based on patient's age to complete this topic Hepatitis A Vaccines Aged Out No long er eligible based on patient's age to complete this topic IPV Vaccines Aged Out No longer eligi ble based on patient's age to complete this topic Meningococcal Vaccine Aged Out No evans natacha eligible based on patient's age to complete this topic RSV under 20 months Aged Out No longe r eligible based on patient's age to complete this topic Rotavirus Vaccines Aged Out No longer eligible based on patient's age to complete this topic Procedures Procedure Name Priority Date/Time Associated Diagnosis Comments FERRITIN Routine 07/17/2024 3:01 PM EDT Restless leg syndrome IRON AND TOTAL IRON BINDING CAPACITY Routine 07/17/2024 3:01 PM EDT Restless leg syndrome ALBUMIN, RANDOM URINE W/CREATININE Routine 07/17/2024 3:01 PM EDT New onset type 2 diabetes mellitus (CMS/HCC) LIPID PANEL, STANDARD Routine 07/17/2024 3:01 PM EDT New onset type 2 diabetes mellitus (CMS/HCC) COMPREHENSIVE METABOLIC PANEL Routine 07/17/2024 3:01 PM EDT New onset type 2 diabetes mellitus (CMS/HCC) POCT MARGE-14 URINE DRUG SCREEN Routine 07/09/2024 10:26 AM EDT Bipolar affective disorder, remission status unspecified (CMS/HCC) POCT GLYCATED HEMOGLOBIN, TOTAL Routine 06/22/2024 9:07 AM EST New onset type 2 diabetes mellitus (CMS/HCC) POCT GLUCOSE Routine 06/22/2024 9:04 AM EST New onset type 2 diabetes mellitus (CMS/HCC) HM DIABETES EYE EXAM Routine 10/26/2023 BI MAMMOGRAM SCREENING TOMOSYNTHESIS BILATERAL Routine 01/10/2023 10:05 AM EDT PROPHYLAXIS - ADULT Routine 09/03/2021 1 2:00 AM EDT BITEWINGS - 4 RADIOGRAPHIC IMAGES Routine 09/03/2021 12:00 AM EDT ZZZ HISTORICAL HEPATITIS C AB W/REFL TO HCV RNA, QN, PCR Routine 07/24/2021 10:11 AM EDT HIV 1/2 ANTIGEN/ANTIBODY, FOURTH GENERATION W/RFL Routine 07/24/2021 10:11 AM EDT HPV MRNA E6/E7 Routine 02/12/2021 11:21 AM EDT THINPREP IMAGING SYSTEM PAP Routine 02/12/2021 11:21 AM EDT INTRAORAL - COMPLETE SERIES OF RADIOGRAPHIC IMAGES Routine 03/11/2020 12:00 AM EST COMPREHENSIVE ORAL EVALUATION - NEW OR ESTABLISHED PATIENT Routine 03/11/2020 12:00 AM EST from Last 3 Months or Most Recently Relevant to Health Maintenance Results * Albumin, Random Urine W/Creatinine (07/17/2024 3:01 PM EDT) Creatinine, Urine 105.55 mg/dL [facility] Microalbumin Urine 21.0 mg/L [facility] Microalbum Creatinine Ratio Ur 19.8 <30 ug/mg cr [facility] Comment:Albumin/Creatinine R atio Reference Ranges: Normal: < 30 ug/mg creatinine Microalbuminuria: 30 - 300 ug/mg creatinineClinical Albuminuria: > 300 ug/mg creatinine Urine (Urine, Random) 07/17/2024 3:01 PM EDT 07/17/2024 4:19 PM EDT Shon Darling MD LAB URINE ORDERABLES Final Resul t Performing Organization Address [facility]/ZIP Co de Phone Number [facility] [address] [place] [phone] * (ABNORMAL) Iron And Total Iron Binding Capacity (07/17/2024 3:01 PM EDT) Iron 38 30 - 160 mcg/dL [facility] Total Iron Binding Capacity 341 228 - 428 mcg/dL [facility] Percent Iron Saturation 11(L) 15 - 50 % [facility] Unsaturated Iron Binding 303 ug/dL [facility] Blood Venous blood specimen / Unknown 07/17/2024 3:01 PM EDT 07/17/2024 4:49 PM EDT Hermelindo Scott [facility] LAB BLOOD ORDERABLES Lizzy l Result Performing Organization Address City/[facility]/ZIP Co de Phone Number [facility] [address] [place] [phone] * Ferritin (07/17/2024 3:01 PM EDT) Ferritin 14 10 - 250 ng/mL [facility] Blood Venous blood specimen / Unknown 07/17/2024 3:01 PM EDT 07/17/2024 4:49 PM EDT Hermelindo Scott HYDRAMATIC SPECIALIST LAB BLOOD ORDERABLES Lizzy l Result Performing Organization Address [facility]/ZIP Co de Phone Number [facility] [address] [place] [phone] [phone] * Lipid Panel, Standard (07/17/2024 3:01 PM EDT) Triglycerides 134 <150 mg/dL [facility] Comment:Desirable Triglyceri de: less than 150 mg/dLBorderline High Triglyceride 150-199 mg/dLHigh Triglyceride: 200-499 mg/dLVery High Triglyceride: greater than or equal to 5OO mg/dL Cholesterol 145 <200 mg/dL [facility] Comment:Desirable Cholestero l: less than 200 mg/dLBorderline High Cholesterol: 200-239 mg/dLHigh Cholesterol: greater than 239 mg/dL LDL Cholesterol Calculated 63 <100 mg/dL [facility] Comment:Desirable LDL: less than 100 mg/dLNear Optimal/Above Optimal LDL: 110- 129 mg/dLBorderline High LDL: 130-159 mg/dLHigh LDL: 160-189 mg/dLVery High LDL: greater than or equal to 190 mg/dL HDL Cholesterol 56 >40 mg/dL [facility] Comment:Desirable HDL: great er than 40 mg/dL Note: This HDL assay may give artificially low results in patients with liver disease. Blood Venous blood specimen / Unknown 07/17/2024 3:01 PM EDT 07/17/2024 4:49 PM EDT Shon Darling MD LAB BLOOD ORDERABLES Final Resul t Performing Organization Address City/[facility]/ZIP Co de Phone Number [facility] [address] [place] [address] [phone] * (ABNORMAL) Comprehensive Metabolic Panel (07/17/2024 3:01 PM EDT) Sodium 140 135 - 145 mmol/L [facility] Potassium 4.0 3.3 - 5.1 mmol/L [facility] Chloride 107 96 - 108 mmol/L [facility] Carbon Dioxide 24 22 - 29 mmol/L [facility] Anion Gap 13 12 - 20 [facility] Urea Nitrogen (BUN) 10 9 - 16 mg/dL [facility] Creatinine, Serum 0.81 0.5 - 1.4 mg/dL [facility] Estimated Glomerular Filt Rate >60 [facility] Comment:Chronic Kidney Disea se: Estimated GFR < 60 mL/min/[id number] Kidney Disease: Estimated GFR < 15 mL/min/1.73m2 Glucose 165(H) 60 - 115 mg/dL [facility] Calcium 9.1 8.4 - 10.2 mg/dL [facility] Bilirubin, Total 0.2 0.0 - 1.0 mg/dL [facility] Aspartate Amino Transferase 28 5 - 31 U/L [facility] Alanine Aminotransferase 28 0 - 31 U/L [facility] Total Protein 7.6 6.5 - 8.0 g/dL [facility] Albumin Level 3.8 3.5 - 5.0 g/dL [facility] Alkaline Phosphatase 184(H) 39 - 117 U/L [facility] Blood Venous blood specimen / Unknown 07/17/2024 3:01 PM EDT 07/17/2024 4:49 PM EDT us Shon Name LAB BLOOD ORDERABLES Final Resul t [facility] [address] [place] [phone] * POCT MARGE-14 Urine Drug Screen (07/09/2024 10:26 AM EDT) TCA, Urine Positive Urine Urine specimen obtained by clean catch procedure / Unknown 07/09/2024 10:26 AM EDT Kassidy Herbert RN - 07/09/2024 10:26 AM EDT UTOX cup Lot#[id number] Exp. 12/19/25 Internal Pass Control Shon Darling MD POINT OF CARE TEST ENTER/EDIT OR DERABLES Final Result * (ABNORMAL) POCT HGB A1C (06/22/2024 9:07 AM EST) Hemoglobin A1C 6.3(A) 4.0 - 6.0 % QC Media Lot # [id number] Lot# Expiration Date ,026 Blood 06/22/2024 9:07 AM EST [facility] POINT OF CARE TEST ENTER/ EDIT ORDERABLES Final Result * POCT Glucose (06/22/2024 9:04 AM EST) Pathologist [facility] Glucose Blood, POC 146 60 - 200 mg/dL QC Media Lot # [id number] Lot# Expiration Date Blood Capillary blood specimen / Unknown 06/22/2024 9:04 AM EST [facility] POINT OF CARE TEST ENTER/ EDIT ORDERABLES Final Result * Hm Diabetes Eye Exam (10/26/2023) [facility] Eye Exam Normal Normal Result [facility] Shon Darling MD HEALTH MAINTENANCE Final Result * BI Mammogram Screening Tomosynthesis Bilateral (01/10/2023 10:05 AM EDT) Anatomical Region Laterality Modality Breast Bilateral Mammography 01/10/2023 10:0 5 AM EDT Narrative 01/26/2023 10:51 PM EDT ? [facility] [place] ? [address] ?[place] [address] ? Mammography Report ? Signed ? Patient: Larry,Peyton ?MR#: [id number] ?? [id number] ? : 1965 ?Acct:[id number] ? Age/Sex: 57 / F ?ADM Date: 09//23 ? Loc: HO.MAMMO ? Attending Dr: Shon Darling MD ? Ordering Physician: Shon Darling MD ?Results: 1Negative ? Date of Service: 01/10/23 ?Follow Up: 1 Year From Orig ?? inal Mammogram ? Procedure(s): MM tomosynthesis screening BI ?? Accession Number(s): [id number] ? cc: Lisset,Shon HERNÁNDEZ ? EXAMINATION: ?? MM SCREENING DIGITAL BREAST TOMOSYNTHESIS, BILATERAL ? CLINICAL INFORMATION: ? Screening. Asymptomatic. ? COMPARISON: ?? Mammography: This study is compared with prior exams dating back to ?? 2016. ? TECHNIQUE: ?? Digital breast tomosynthesis is performed in both the craniocaudal and ?? mediolateral oblique views along with computer-aided detection (CAD). ?? Synthesized 2D images are generated from the tomosynthesis. ? FINDINGS: ?? The breasts are almost entirely fatty (ACR BI-RADS breast composition ?? Category a). ? There are no significant masses, abnormal calcifications, or other ?? abnormalities. ? MM/MM tomosynthesis screening BI ?? IMPRESSION: ?? No mammographic evidence of malignancy. ? ASSESSMENT: ? BI-RADS BI-RADS 1 - Negative ? RECOMMENDATION: ?? Routine annual mammography screening. ? 1 year F/U ? This examination should not preclude the clinical evaluation of a ?? suspicious palpable abnormality. ? This patient's information was entered into a reminder system with a ?? target due date for their next mammogram. ? Dictated By: ?Carmen Barrios MD ? Signed By: ?<Electronically signed by Carmen Barrios MD in OV> ? 01/26/232246 ? DD/ 1005 ? TD/TT: ? Cork Sorter: ? Procedure Note Donotuseinterpreter, Image - 01/26/2023 [facility] [address] [place] [address] Mammography Report Signed Patient: Zelalem Juarez#: [id number] : 1965Acct:[id number] Age/Sex: 57 / FADM Date: 01/10/23 Loc: HO.MAMMO Attending Dr: Shon Darling MD Ordering Physician: Shon Darlingesults: 1Negative Date of Service: 01/10/23Follow Up: 1 Year From Orig inal Mammogram Procedure(s): MM tomosynthesis screening BI Accession Number(s): [id number] cc: Shon Darling MD EXAMINATION: MM SCREENING DIGITAL BREAST TOMOSYNTHESIS, BILATERAL CLINICAL INFORMATION: Screening. Asymptomatic. COMPARISON: Mammography: This study is compared with prior exams dating back to 2016. TECHNIQUE: Digital breast tomosynthesis is performed in both the craniocaudal and mediolateral oblique views along with computer-aided detection (CAD). Synthesized 2D images are generated from the tomosynthesis. FINDINGS: The breasts are almost entirely fatty (ACR BI-RADS breast composition Category a). There are no significant masses, abnormal calcifications, or other abnormalities. MM/MM tomosynthesis screening BI IMPRESSION: No mammographic evidence of malignancy. ASSESSMENT: BI-RADS BI-RADS 1 - Negative RECOMMENDATION: Routine annual mammography screening. 1 year F/U This examination should not preclude the clinical evaluation of a suspicious palpable abnormality. This patient's information was entered into a reminder system with a target due date for their next mammogram. Dictated By: Carmen Barrios MD Signed By: <Electronically signed by Carmen Barrios MD in OV> 01/26/23 1157 DD/ 1005 TD/TT: Cork Sorter: Shon Name IMG BI PROCEDURES Final Result * HEPATITIS C AB W/REFL TO HCV RNA, QN, PCR (07/24/2021 10:11 AM EDT) HEPATITIS C ANTIBODY NON-REACT RADHA NON-REACT RADHA [facility] INDEX 0.04 <1.00 [facility] Comment: ?? HCV antibody was non-reactive. There is no laboratory ?? evidence of HCV infection. ?? In most cases, no further action is required. However, if recent HCV exposure is suspected, a test for HCV RNA (test code 49015) is suggested. ?? For additional information please refer to http://itsDapper.ICRTec/faq/YII90z0 (This link is being provided for informational/ educational purposes only.) ?? 07/24/2021 10:1 1 AM EDT Shon Name HISTORICAL/NON ORDERABLE LABS Fi nal Result [facility] [address] * HIV 1/2 ANTIGEN/ANTIBODY,FOURTH GENERATION W/RFL (07/24/2021 10:11 AM EDT) Pathologist [facility] HIV-1/2 ANTIGEN AND ANTIBODIES, 4TH GENERATION W/ REFLEX NON-REACT RADHA NON-REACT RADHA [facility] Comment: HIV-1 antigen and HIV-1/HIV-2 antibodies were not detected. There is no laboratory evidence of HIV infection. ?? PLEASE NOTE: This information has been disclosed to you from records whose confidentiality may be protected by state law. ??If your state requires such protection, then the state law prohibits you from making any further disclosure of the information without the specific written consent of the person to whom it pertains, or as otherwise permitted by law. A general authorization for the release of medical or other information is NOT sufficient for this purpose. ? For additional information please refer to http://itsDapper.ICRTec/faq/KVC889 (This link is being provided for informational/ educational purposes only.) ? The performance of this assay has not been clinically validated in patients less than 2 years old. ?? 07/24/2021 10:1 1 AM EDT Shon Darling MD LAB BLOOD ORDERABLES Final Resul t Performing Organization Address [facility] de Phone Number [facility] [address] [place] [address], * THINPREP TIS PAP (02/12/2021 11:21 AM EDT) Clinical Information: None given [facility] COMMENT SEE COMMENT [facility] Comment: EXPLANATORY NOTE: ? The Pap is a screening test for cervical cancer. It is ?? not a diagnostic test and is subject to false negative ?? and false positive results. It is most reliable when a ?? satisfactory sample, regularly obtained, is submitted ?? with relevant clinical findings and history, and when ?? the Pap result is evaluated along with historic and ?? current clinical information. ?? COMMENT: This Pap test has been evaluated with computer assisted technology. [facility] Mmd Unit Teacher : SEE COMMENT [facility] Comment: MXD, CT (ASCP) CT screening location: [address] ??[address] Interpretation/R esult: Negative for intraepithelial lesion or malignancy. [facility] LMP: NONE GIVEN [facility] Prev. BX: NONE [facility]IVEN [facility] Prev. PAP: NONE GIVEN [facility] SOURCE: None given [facility] Statement Of Adequacy: SEE COMMENT [facility] Comment: Satisfactory for evaluation. Endocervical/transformation zone component present. Age and/or menstrual status not provided 02/12/2021 11:2 1 AM EDT Vidya Shaw CNM LAB PATHOLOGY ORDERABLES Final Result Performing Organization Address [facility] Co de Phone Number [facility] [address] [place] [address], * HPV mRNA E6/E7 (02/12/2021 11:21 AM EDT) HPV nRNA E6/E7 Not Detected Not Detected [facility] Comment: Methodology: Spring Coiling Machine Setter-Mediated Amplification This assay detects E6/E7 viral messenger RNA (mRNA) from 14 high-risk HPV types (16,18,31,33,35,39,45,51,52,56,58,59,66,68). ? The analytical performance characteristics of this assay have been determined by [employer]. The modifications have not been cleared or approved by the FDA. This assay has been validated pursuant to the CLIA regulations and is used for clinical purposes. ?? For additional information, please refer to http://education.ICRTec/faq/OOY255p8 (This link if provided for information/ educational purposes only.) 02/12/2021 11:2 1 AM EDT us Vidya SHEARER LAB BLOOD ORDERABLES Lizzy leigh Result [facility] [address] from Last 3 Months or Most Recently Relevant to Health Maintenance Insurance [facility] STANDARD [facility] MEDICARE ADVANTAGE HMO DENTAL-[facility] MEDICAID STAND ADULT Care Teams Street Light Servicer Helper Relationship Specialty Start Date End Date Name, MD Shon [address] [place] [address] PCP - General Family Medicine 07/03/15
--- OUTSIDE RECORDS SUMMARY | 2024-07-17 17:51 | XMS_ITS | Encounter Summary ---
Author Organization [employer] Address [address] 7t [place] [address] Care Team Providers Care Bottle Packing Machine Cleaner Name Role Phone NameShon MD Primary Care Provider [phone] Reason for Visit * Reason Comments Care Coordination CHW outreach for SDO H PT-1 and food needs-referral completed Encounter Details Date Type Department Care Team (Latest Contact Info) Description 07/10/2024 Patient Outreach [facility] [address] [place], [place] [phone] Name, MD Shon [address] [place] [address] Care Coordination (CHW outreach for SDOH PT-1 and food needs-referral completed /) Social History Tobacco Use Types Packs/Day Years [...] as of this encounter Progress Notes * Alberto Peters - 07/10/2024 3:44 PM EDT CHW Alberto Peters, placed outbound call to patient for assistance with SDOH as a referral was received by the provider. Patient's name and were confirmed. Patient screened positive for the following SDOH food insecurities. CHW referral patient to the local list of pantries in the area for help. Patient verbalizes understanding, and able to agree with plan to follow up. Patient educated on ex tended clinic hours on Mondays through Wednesdays, and Walk-In Urgent Care Located in [facility] of [facility].Patient provided with after-hours line for [facility], , which offer night time triage serviceand option to transfer to it sales consultant provider if needed. documented in this encounter Plan of Treatment Upcoming Encounters Date Type Department Care Team (Late st Contact Info) Description 08/06/2024 10:30 AM EDT Clinical Support [facility] [address] [place] [phone] Kassidy Watson RN 09/03/2024 11:00 AM EDT Office Visit [facility] [address] [place] [address] Name, MD Shon [address] [place] [address] documented as of this encounter Visit Diagnoses Not on filedocumented in this encounter Additional Health Concerns Assessment Noted Time PHQ-9 Depression Total Score: 8 07/11/19 25 1:14 PM EDT documented as of this encounter Care Teams Bottle Packing Machine Cleaner Relationship Specialty Start Date End Date Name, MD Shon [address] [place] [address] PCP - General Family Medicine 07/03/15 documented as of this encounter
--- OUTSIDE RECORDS SUMMARY | 2024-07-17 17:51 | XMS_ITS | Encounter Summary ---
Author Organization [employer] Address [address] [place] [address] 7t [place] [address] Care Team Providers Care Gold Stamper Name Role Phone Name, Shon HERNÁNDEZ Primary Care Provider [phone] Encounter Details Date Type Department Care Team (Late st Contact Info) Description 04/19/[address] [facility] [address] [place], [place] [phone] Nidia Leon LPN Social History Tobacco Use Types Packs/Day Years Used Date Smoking Tobacco: Never Assessed Comments Unknown Sex and Gender Information Value Date Recorded Sex Assigned at Female 03/01/2022 10:14 AM EDT Legal Sex Female 10:14 AM EDT Gender Identity Female 03/01/2022 10:14 AM EDT Sexual Orientation Straight 03/01/2022 10 :14 AM EDT documented as of this encounter Plan of Treatment Upcoming Encounters Date Type Department Care Team (Late st Contact Info) Description 08/06/2024 10:30 AM EDT Clinical Support [address] [address] Kassidy Watson RN 09/03/2024 11:00 AM EDT Office Visit [facility] [address] [place] [address] Name, MD Shon [address] [place] [address] documented as of this encounter Visit Diagnoses Not on filedocumented in this encounter Care Teams Gold Stamper Relationship Specialty Start Date End Date NameShon MD [address] [place] [address] PCP - General Family Medicine 07/03/15 documented as of this encounter
--- OUTSIDE RECORDS SUMMARY | 2024-07-17 17:51 | XMS_ITS | Encounter Summary ---
Author Organization [employer] Address [address] 7t [place] [address] Care Team Providers Care Wet End Supervisor Name Role Phone Name, Shon HERNÁNDEZ Primary Care Provider [phone] Reason for Visit * Reason Onset Date Comments A1C 04/12/2023 Encounter Details Date Type Department Care Team ([facility] st Contact Info) Description 04/12/2023 Telephone [facility] [address] [place], [place] [phone] Name, MD Shon [address] [place] [address] A1C Social History Tobacco Use Types Packs/Day Years Used Date Smoking Tobacco: Never Alcohol Use Standard Drinks/Week Comments Never 0 (1 standard drink = 0.6 oz pur e alcohol) Depression Answer Date Recorded Patient Health Questionnaire-9 Score 6 08/18/2022 Housing Stability Answer Date Recorded What is [...] Answer Date Recorded Patient Health Questionnaire-2 Score 2 08/18/2022 Comments Unknown Sex and Gender Information Value Date Recorded Sex Assigned at Female 03/01/2022 10:14 AM EDT Legal Sex Female 10:14 AM EDT Gender Identity Female 03/01/2022 10:14 AM EDT Sexual Orientation Straight 03/01/2022 10 :14 AM EDT documented as of this encounter Miscellaneous Notes * Telephone Encounter - Jones Harvey RN - 04/14/2023 2:00 PM EST T/C to pt. Through [employer] id - [id number] for below message, pt., schedule for apt. On 05/24/2022. Pt. Also states that yesterday her BP was low, yesterday her reading was low , yesterday her reading was 83/43. Rn asked to take BP today and her reading is 95/61, Has little bit dizziness but no another symptoms. Pt. Advised to come to walk in center for further evaluation but denied. Pt. Also advised to go to nearest Ed in case of any new or worsening symptoms, including CP, SOB , breathing problem, fainting (a sudden, temporary loss of consciousness), Light- headedness, blurred vision, palpitations (a rapid or irregular heartbeat), confusion, nausea (feeling like you are going to be sick) ,and general weakness. [facility] hours are reviewed. Pt. verbally agreed and understood. * Telephone Encounter - Tere Gracia - 04/12/2023 12:15 PM EST TC from JOSE [facility] calling on behalf of her last visit with pt and states pt AC1 came back as a result on 7.0. Please if any questions please contact Jose @ [phone] documented in this encounter Plan of Treatment Upcoming Encounters Date Type Department Care Team (Late st Contact Info) Description 08/06/2024 10:30 AM EDT Clinical Support [address] [address] Kassidy Watson, RN 09/03/2024 11:00 AM EDT Office Visit [address] [address] Name, MD Shon [address] [place] [address] documented as of this encounter Visit Diagnoses Not on filedocumented in this encounter Additional Health Concerns Assessment Noted Time PHQ-9 Depression Total Score: 6 08/19/19 23 11:30 AM EDT documented as of this encounter Care Teams Wet End Supervisor Relationship Specialty Start Date End Date NameShon MD [address] [place] [address] PCP - General Family Medicine 07/03/15 documented as of this encounter
--- OUTSIDE RECORDS SUMMARY | 2024-07-17 17:51 | XMS_ITS | Encounter Summary ---
Author Organization [employer] Address [address] [place] [address] Care Team Providers Care Mens Locker Room Attendant Name Role Phone Name, Shon HERNÁNDEZ Primary Care Provider [phone] Reason for Visit * Reason Comments Med Refill Encounter Details Date Type Department Care Team ([facility] st Contact Info) Description 12/22/2023 Refill [facility] [address] [place], [place] [phone] Name, MD Shon [address] [place], [place] [phone] Bipolar I disorder ([facility]) Social History Tobacco Use Types Packs/Day Years [...] Description 08/06/2024 10:30 AM EDT Clinical Support [address] [address] Kassidy Watson RN 09/03/2024 11:00 AM EDT Office Visit [address] [address] Name, MD Shon [address] [place] [address] documented as of this encounter Visit Diagnoses Diagnosis Bipolar I disorder ([facility]) Bipolar I disorder, most recent episode (or current) unspecified documented in this encounter Additional Health Concerns Assessment Noted Time PHQ-9 Depression Total Score: 6 08/19/19 23 11:30 AM EDT documented as of this encounter Care Teams Mens Locker Room Attendant Relationship Specialty Start Date End Date NameShon MD [address] [place] [phone] PCP - General Family Medicine 07/03/15 documented as of this encounter
--- OUTSIDE RECORDS SUMMARY | 2024-07-17 17:51 | XMS_ITS | Encounter Summary ---
Author Organization [employer] [facility] Address [address] [place] [address] 7t [place] [address] Care Team Providers Care Emission Technician Name Role Phone NameShon MD Primary Care Provider [phone] Reason for Visit * Reason Comments Med Refill Encounter Details Date Type Department Care Team (Late st Contact Info) Description 12/16/2022 Refill [facility] [address] [place] [phone] Name, MD Shon [address] [place], [place] [phone] Bipolar I disorder ([facility]) Social History Tobacco Use Types Packs/Day Years Used Date Smoking Tobacco: Never Depression Answer Date Recorded Patient Health Questionnaire-9 Score 6 08/18/2022 Depression Answer Date Recorded Patient Health Questionnaire-2 Score 2 08/18/2022 Comments Unknown Sex and Gender Information Value Date Recorded Sex Assigned at Female 03/01/2022 10:14 AM EDT Legal Sex Female 10:14 AM EDT Gender Identity Female 03/01/2022 10:14 AM EDT Sexual Orientation Straight 03/01/2022 10 :14 AM EDT documented as of this encounter Miscellaneous Notes * Telephone Encounter - Shon Darling MD - 12/16/2022 1:45 PM EDT I will hold until she comes in documented in this encounter Plan of Treatment Upcoming Encounters Date Type Department Care Team (Late st Contact Info) Description 08/06/2024 10:30 AM EDT Clinical Support [facility] [address] [place] [address] Kassidy Watson RN 09/03/2024 11:00 AM EDT Office Visit [facility] [address] [place] [address] Name, MD Shon [address] [place] [address] documented as of this encounter Visit Diagnoses Diagnosis Bipolar I disorder ([facility]) Bipolar I disorder, most recent episode (or current) unspecified documented in this encounter Additional Health Concerns Assessment Noted Time PHQ-9 Depression Total Score: 6 08/19/19 23 11:30 AM EDT documented as of this encounter Care Teams Emission Technician Relationship Specialty Start Date End Date Name, MD Shon [address] [place] [address] PCP - General Family Medicine 07/03/15 documented as of this encounter
--- OUTSIDE RECORDS SUMMARY | 2024-07-17 17:51 | XMS_ITS | Encounter Summary ---
Author Organization [employer] Address [address] 7t [place] [address] Care Team Providers Care Color Shop Helper Name Role Phone Name, Shon HERNÁNDEZ Primary Care Provider [phone] Reason for Visit * Reason Comments Med Refill Encounter Details Date Type Department Care Team ([facility] st Contact Info) Description 07/09/2024 Refill [facility] [address] [place], [place] [phone] Name, MD Shon [address] [place], [place] [phone] Bipolar I disorder ([facility]) Social History Tobacco Use Types Packs/Day [...] Description 08/06/2024 10:30 AM EDT Clinical Support [address] [address] Kassidy Watson RN 09/03/2024 11:00 AM EDT Office Visit [facility] [address] [place] [address] NameShon MD [address] [place] [address] documented as of this encounter Visit Diagnoses Diagnosis Bipolar I disorder ([facility]) Bipolar I disorder, most recent episode (or current) unspecified documented in this encounter Additional Health Concerns Assessment Noted Time PHQ-9 Depression Total Score: 6 08/19/19 23 11:30 AM EDT documented as of this encounter Care Teams Color Shop Helper Relationship Specialty Start Date End Date Shon Darling MD [address] [place] [address] PCP - General Family Medicine 07/03/15 documented as of this encounter
--- OUTSIDE RECORDS SUMMARY | 2024-07-17 17:51 | XMS_ITS | Encounter Summary ---
Author Organization [employer] [facility] Address [address] [place] [address] 7t [place] [address] Care Team Providers Care Plasterer Rough Name Role Phone NameShon MD Primary Care Provider [phone] Encounter Details Date Type Department Care Team (Latest Contact Info) Description 03/21/2020 Abstract [facility] CONVERSIONS Dental, Provider, DDS Social History Tobacco Use Types Packs/Day Years [...] Description 08/06/2024 10:30 AM EDT Clinical Support [facility] [address] [place] [address] Kassidy Watson RN 09/03/2024 11:00 AM EDT Office Visit [facility] [address] [place] [address] NameShon MD [address] [place] [address] documented as of this encounter Visit Diagnoses Not on filedocumented in this encounter Care Teams Plasterer Rough Relationship Specialty Start Date End Date Shon Darling MD [address] [place] [address] PCP - General Family Medicine 07/03/15 documented as of this encounter
--- OUTSIDE RECORDS SUMMARY | 2024-07-17 17:51 | XMS_ITS | Encounter Summary ---
Author Organization [employer] [facility] Address [address] [place] [address] 7 [place] [address] Care Team Providers Care Pelota Maker Name Role Phone NameShon MD Primary Care Provider [phone] Reason for Visit * Reason Comments Med Refill Encounter Details Date Type Department Care Team (Late st Contact Info) Description 10/11/2022 Refill [facility] [address] [place] [address] [phone] NameShon MD [address] [place] [address] [phone] Mood disorder ([facility]) Social History Tobacco Use Types [...] Description 08/06/2024 10:30 AM EDT Clinical Support [address] [phone] Kassidy Watson RN 09/03/2024 11:00 AM EDT Office Visit [address] [phone] Shon Darling MD [address] [place] [address] [phone] documented as of this encounter Visit Diagnoses Diagnosis Mood disorder (CMS/HCC) Unspecified episodic mood disorder documented in this encounter Additional Health Concerns Assessment Noted Time PHQ-9 Depression Total Score: 6 08/19/19 23 11:30 AM EDT documented as of this encounter Care Teams Pelota Maker Relationship Specialty Start Date End Date Name, MD Shon [address] [place] [address] PCP - General Family Medicine 07/03/15 documented as of this encounter
--- OUTSIDE RECORDS SUMMARY | 2024-07-17 17:51 | XMS_ITS | Encounter Summary ---
Author Organization [employer] Address [address] 7t [place] [address] Care Team Providers Care Money Position Officer Name Role Phone Name, Shon HERNÁNDEZ Primary Care Provider [phone] Reason for Visit * Reason Onset Date Comments Med Refill 06/20/2024 Encounter Details Date Type Department Care Team ([facility] st Contact Info) Description 06/20/2024 Refill [facility] MEDICINE [address] [place], [place] [phone] Name, MD Shon [address] [place], [place] [phone] Heartburn Social History Tobacco Use Types Packs/Day Years [...] encounter Miscellaneous Notes * Telephone Encounter - Gato Varma - 06/20/2024 10:42 AM EST TC from pt requesting medication refill. Medications needing refill : Calcium Antacid 500 MG chewable tablet To be sent to: [facility] - [place], [place] - [address] [place] [address] documented in this encounter Plan of Treatment Upcoming Encounters Date Type Department Care Team (Late st Contact Info) Description 08/06/2024 10:30 AM EDT Clinical Support [facility] MED[facility]INE [address] [place] [address] Kassidy Watson RN 09/03/2024 11:00 AM EDT Office Visit [facility] [address] [place] [address] NameShon MD [address] [place] [address] documented as of this encounter Visit Diagnoses Diagnosis Heartburn documented in this encounter Additional Health Concerns Assessment Noted Time PHQ-9 Depression Total Score: 6 08/19/19 23 11:30 AM EDT documented as of this encounter Care Teams Money Position Officer Relationship Specialty Start Date End Date Shon Darling MD [address] [place] [address] PCP - General Family Medicine 07/03/15 documented as of this encounter
--- OUTSIDE RECORDS SUMMARY | 2024-07-17 17:51 | XMS_ITS | Encounter Summary ---
Author Organization [employer] Address [address] [facility] [address] 7t [place] [address] Care Team Providers Care Infection Control Rn Name Role Phone Name, Shon HERNÁNDEZ Primary Care Provider [phone] Reason for Visit * Reason Comments Med Refill Encounter Details Date Type Department Care Team ([facility] st Contact Info) Description 03/16/2024 Refill [facility] MEDICINE [address] [place], [place] [phone] Name, MD Shon 230 [place], [place] [phone] Bipolar I disorder ([facility]) Social History Tobacco Use [...] Description 08/06/2024 10:30 AM EDT Clinical Support [address] [address] Kassidy Watson RN 09/03/2024 11:00 AM EDT Office Visit [address] [address] Name, MD Shon [address] [place] [address] documented as of this encounter Visit Diagnoses Diagnosis Bipolar I disorder ([facility]) Bipolar I disorder, most recent episode (or current) unspecified documented in this encounter Additional Health Concerns Assessment Noted Time PHQ-9 Depression Total Score: 6 08/19/19 23 11:30 AM EDT documented as of this encounter Care Teams Infection Control Rn Relationship Specialty Start Date End Date NameShon MD [address] [place] [address] PCP - General Family Medicine 07/03/15 documented as of this encounter
--- OUTSIDE RECORDS SUMMARY | 2024-07-17 17:51 | XMS_ITS | Encounter Summary ---
Author Organization [employer] Address [address] [facility] [address] 7t [place] [address] Care Team Providers Care Qa Specialist Name Role Phone Name, Shon HERNÁNDEZ Primary Care Provider Reason for Visit * Reason Onset Date Comments Med Refill 07/09/2024 Encounter Details Date Type Department Care Team ([facility] st Contact Info) Description 07/09/2024 Refill [facility] MEDICINE 230 [place], [place] [phone] Kassidy Watson RN Bipolar I disorder ([facility]) Social History Tobacco Use Types Packs/Day [...] Description 08/06/2024 10:30 AM EDT Clinical Support [facility] MEDICINE [address] [place] [address] Kassidy Watson RN 09/03/2024 11:00 AM EDT Office Visit [address] [address] Name, MD Shon [address] [place] [address] documented as of this encounter Visit Diagnoses Diagnosis Bipolar I disorder ([facility]) Bipolar I disorder, most recent episode (or current) unspecified documented in this encounter Additional Health Concerns Assessment Noted Time PHQ-9 Depression Total Score: 6 08/19/19 23 11:30 AM EDT documented as of this encounter Care Teams Qa Specialist Relationship Specialty Start Date End Date Name, MD Shon [address] [place] [address] PCP - General Family Medicine 07/03/15 documented as of this encounter
--- OUTSIDE RECORDS SUMMARY | 2024-07-17 17:51 | XMS_ITS | Encounter Summary ---
Author Organization [email or web address] Address [address] [facility] [address] 7t [place] [address] Care Team Providers Care Convex Grinder Name Role Phone Name, Shon HERNÁNDEZ Primary Care Provider [phone] Reason for Visit * Reason Comments Med Refill Encounter Details Date Type Department Care Team ([facility] st Contact Info) Description 03/02/2023 Refill [facility] MEDICINE [address] [place], [place] [phone] Name, MD Shon 230 [place], [place] [phone] Bipolar I disorder ([facility]) Social History Tobacco Use Types [...] Description 08/06/2024 10:30 AM EDT Clinical Support [address] [address] Kassidy Watson RN 09/03/2024 11:00 AM EDT Office Visit [address] [address] Name, MD Shon [address] [place] [address] documented as of this encounter Visit Diagnoses Diagnosis Bipolar I disorder ([facility]) Bipolar I disorder, most recent episode (or current) unspecified documented in this encounter Additional Health Concerns Assessment Noted Time PHQ-9 Depression Total Score: 6 08/19/19 23 11:30 AM EDT documented as of this encounter Care Teams Convex Grinder Relationship Specialty Start Date End Date NameShon MD [address] [place] [address] PCP - General Family Medicine 07/03/15 documented as of this encounter
--- OUTSIDE RECORDS SUMMARY | 2024-07-17 17:51 | XMS_ITS | Encounter Summary ---
Author Organization [employer] Address [address] [facility] [facility] [address] 7t [place] [address] Care Team Providers Care Kitchen Steward/Stewardess Name Role Phone Name, Shon HERNÁNDEZ Primary Care Provider [phone] Reason for Visit * Reason Comments Med Refill Encounter Details Date Type Department Care Team (Late st Contact Info) Description 06/28/2024 Refill [facility] [address] [place], [place] [phone] Name, MD Shon 230 [place] [address] New onset type 2 diabetes mellitus (CMS/HCC); Hypertension, unspecified type; Mood disorder (CMS/HCC) Social History Tobacco Use Types Packs/Day Years [...] Description 08/06/2024 10:30 AM EDT Clinical Support [address] [address] Kassidy Watson RN 09/03/2024 11:00 AM EDT Office Visit [address] [address] NameShon MD [address] [place] [address] documented as of this encounter Visit Diagnoses Diagnosis New onset type 2 diabetes mellitus (CMS/HCC) Hypertension, unspecified type Mood disorder (CMS/HCC) Unspecified episodic mood disorder documented in this encounter Additional Health Concerns Assessment Noted Time PHQ-9 Depression Total Score: 6 08/19/19 23 11:30 AM EDT documented as of this encounter Care Teams Kitchen Steward/Stewardess Relationship Specialty Start Date End Date NameShon MD [address] [place] [address] PCP - General Family Medicine 07/03/15 documented as of this encounter
--- OUTSIDE RECORDS SUMMARY | 2024-07-17 17:51 | XMS_ITS | Encounter Summary ---
Author Organization [employer] Address [address] [facility] [address] 7t [place] [address] Care Team Providers Care Alpaca Farmer Name Role Phone Name, Shon HERNÁNDEZ Primary Care Provider Encounter Details Date Type Department Care Team (Latest Contact Info) Description 07/09/2024 Travel Social History Tobacco Use Types Packs/Day Years [...] Description 08/06/2024 10:30 AM EDT Clinical Support [facility] MEDICINE [address] [place] [address] Kassidy Watson RN 09/03/2024 11:00 AM EDT Office Visit [facility] MED[facility]INE [address] [place] [address] Name, MD Shon [address] [place] [address] documented as of this encounter Visit Diagnoses Not on filedocumented in this encounter Additional Health Concerns Assessment Noted Time PHQ-9 Depression Total Score: 6 08/19/19 23 11:30 AM EDT documented as of this encounter Care Teams Alpaca Farmer Relationship Specialty Start Date End Date Name, MD Shon [address] [place] [phone] PCP - General Family Medicine 07/03/15 documented as of this encounter
--- OUTSIDE RECORDS SUMMARY | 2024-07-17 17:51 | XMS_ITS | Encounter Summary ---
Author Organization [facility] Address [address] [place] [address] 7t [place] [address] Care Team Providers Care Subassembly Supervisor Name Role Phone NameShon MD Primary Care Provider [phone] Encounter Details Date Type Department Care Team (Latest Contact Info) Description 09/03/2021 Abstract [facility] Dental, Provider, DDS Social History Tobacco [...] Description 08/06/2024 10:30 AM EDT Clinical Support [facility] MEDICINE [address] [place] [address] Kassidy Watson RN 09/03/2024 11:00 AM EDT Office Visit [facility] [address] [place] [address] NameShon MD 230 [place] [address] documented as of this encounter Visit Diagnoses Not on filedocumented in this encounter Care Teams Subassembly Supervisor Relationship Specialty Start Date End Date Shon Darling MD [address] [place] [address] PCP - General Family Medicine 07/03/15 documented as of this encounter
--- OUTSIDE RECORDS SUMMARY | 2024-07-17 17:51 | XMS_ITS | Encounter Summary ---
Author Organization [employer] Address [address] [facility] [address] [facility] [address] 7t [place] [address] Care Team Providers Care Concrete Mixing Plant Laborer Name Role Phone Name, Shon HERNÁNDEZ Primary Care Provider [phone] Reason for Visit * Reason Onset Date Comments Reschedule DISTILLERY MILLER HELPER RV appt was [facility] 05/31/24 06/22/19 Encounter Details Date Type Department Care Team (Late st Contact Info) Description 06/22/2024 Telephone [facility] MEDICINE 230 [place] [address] Kassidy Watson, RN Reschedule DISTILLERY MILLER HELPER RV appt was [place] 05/31/24 Social History Tobacco Use Types Packs/Day Years [...] encounter Miscellaneous Notes * Telephone Encounter - Kassidy Watson RN - 06/22/2024 10:02 AM EST Pt was NCNS for DISTILLERY MILLER HELPER RV 05/31/24 and has not rescheduled. TC via BLS#[id number], DISTILLERY MILLER HELPER RV appt rescheduled for 07/09/24 @ 10am. * Telephone Encounter - Kassidy Watson RN - 06/22/2024 10:02 AM EST ----- Message from [employer] sent at 06/22/2024 9:25 AM EST ----- Regarding: DISTILLERY MILLER HELPER f/u Good morning, patient was seen today and I discussed the importance of coming to her follow ups forutox and pill counts. Can you please reach out to patient to reschedule a follow up? Thank you! documented in this encounter Plan of Treatment Upcoming Encounters Date Type Department Care Team (Late st Contact Info) Description 08/06/2024 10:30 AM EDT Clinical Support [facility] MEDICINE [address] [place] [address] Kassidy Watson RN 09/03/2024 11:00 AM EDT Office Visit [facility] MEDICINE [address] [place] [address] Name, MD Shon [address] [place] [address] documented as of this encounter Visit Diagnoses Not on filedocumented in this encounter Additional Health Concerns Assessment Noted Time PHQ-9 Depression Total Score: 6 08/19/19 23 11:30 AM EDT documented as of this encounter Care Teams Concrete Mixing Plant Laborer Relationship Specialty Start Date End Date Name, MD Shon 230 [place] [address] PCP - General Family Medicine 07/03/15 documented as of this encounter
--- OUTSIDE RECORDS SUMMARY | 2024-07-17 17:51 | XMS_ITS | Encounter Summary ---
Author Organization [employer] Address [address] [place] [address] 7 [place] [address] Care Team Providers Care Driver Retraining Instructor Name Role Phone Name, Shon HERNÁNDEZ Primary Care Provider [phone] Reason for Visit * Reason Comments Restless Legs Encounter Details Date Type Department Care Team ([facility] st Contact Info) Description 06/22/2024 9:00 AM EST Office Visit [facility] MEDICINE [address] [place], [place] [phone] Hermelindo Scott CNP 230 [place], [place] [phone] Restless leg syndrome (Primary Dx); New onset type 2 diabetes mellitus (CMS/HCC) Social History Tobacco Use Types Packs/Day [...] AM EDT documented as of this encounter Last Filed Vital Signs Vital Sign Reading [...] oz) 06/22/2024 8:54 A M EST Height - - Body Mass Index 30.08 07/25/2023 2:39 PM EDT documented in this encounter Progress Notes * Hermelindo Scott CNP - 06/22/2024 9:00 AM EST Subjective Patient ID: Peyton Juarez is a 58 y.o. female who presents for Restless Legs. Pt reporting she stopped taking Klonopin x3 months ago because she was in [place] and didn't have the script, that's when she noticed the symptoms. Reports she hasn't been sleeping well since stopping it. She says that she has noticed leg shakiness. Reporting numbness and tingling, reports feeling of ants .Notices it most at night when she goes to sleep. When she sleeps supine it feels better. Denies abnormal gait, denies leg weakness. Review of Systems Constitutional: Negative for appetite change, chills, fatigue, fever and unexpected weight change. Respiratory: Negative for shortness of breath and wheezing. Cardiovascular: Negative for chest pain and palpitations. Endocrine: Negative for polydipsia, polyphagia and polyuria. Musculoskeletal: Negative for arthralgias, joint swelling and myalgias. Skin: Negative for color change and pallor. Neurological: Negative for dizziness, seizures, weakness and numbness. Psychiatric/Behavioral: Positive for sleep disturbance. Objective Vitals: 06/22/24 0854 BP: 116/76 Pulse: 80 Resp: 18 Temp: 98.4 ??F (36.9 ??C) SpO2: 99% Lab Results Component Value Date HGBA1C 6.3 (A) 06/22/2024 Physical Exam Constitutional: Appearance: Normal appearance. Cardiovascular: Rate and Rhythm: Normal rate and regular rhythm. Pulses: Normal pulses. Dorsalis pedis pulses are 2+ on the right side and 2+ on the left side. Posterior tibial pulses are 2+ on the right side and 2+ on the left side. Heart sounds: Normal heart sounds. No murmur heard. No friction rub. No gallop. Pulmonary: Effort: Pulmonary effort is normal. No respiratory distress. Breath sounds: Normal breath sounds. No stridor. No wheezing, rhonchi or rales. Musculoskeletal: General: No swelling, tenderness, deformity or signs of injury. Normal range of motion. Right lower leg: No edema. Left lower leg: No edema. Skin: General: Skin is warm. Coloration: Skin is not pale. Neurological: General: No focal deficit present. Mental Status: She is alert and oriented to person, place, and time. Sensory: No sensory deficit. Motor: No weakness. Gait: Gait normal. Psychiatric: Mood and Affect: Mood normal. Behavior: Behavior normal. Assessment/Plan Problem List Items Addressed This Visit New onset type 2 diabetes mellitus (CMS/[facility]) A1c at goal today 6.3 Maintenance BMP: [...] <130 2 hour post prandial goal: <180 Relevant Orders POCT Glucose (Completed) POCT HGB A1C (Completed) Restless leg syndrome - Primary Sx seem to be correlated with discontinuation of clonazepam Will obtain iron labs to r/o JOSE Advised pt she has fills for clonazepam available at pharmacy Emphasized importance of attending f/u with PROVISIONING SPECIALIST for pill counts and Utox screening, message sent toC RN to reschedule f/u Pt agreeable with plan Relevant Orders Iron And Total Iron Binding Capacity Ferritin documented in this encounter Miscellaneous Notes * Assessment & Plan Note - Hermelindo Scott CNP - 06/22/2024 9:52 AM EST Associated Problem(s): Restless leg syndrome Sx seem to be correlated with discontinuation of clonazepam Will obtain iron labs to r/o JOSE Advised pt she has fills for clonazepam available at pharmacy Emphasized importance of attending f/u with PROVISIONING SPECIALIST for pill counts and Utox screening, message sent Isael RN to reschedule f/u Pt agreeable with plan * Assessment & Plan Note - Hermelindo Scott CNP - 06/22/2024 9:49 AM EST Associated Problem(s): New onset type 2 diabetes mellitus (CMS/HCC) A1c at goal today 6.3 Maintenance BMP: [...] <130 2 hour post prandial goal: <180 documented in this encounter Plan of Treatment Upcoming Encounters Date Type Department Care Team (Late st Contact Info) Description 08/06/2024 10:30 AM EDT Clinical Support [facility] MEDICINE [address] [place] [address] Kassidy Watson RN 09/03/2024 11:00 AM EDT Office Visit [facility] MEDICINE [address] [place] [address] Name, MD Shon 230 [place] [address] documented as of this encounter Procedures Procedure Name Priority Date/Time Associated Diagnosis Comments IRON AND TOTAL IRON BINDING CAPACITY Routine 07/17/2024 3:01 PM EDT Restless leg syndrome FERRITIN Routine 07/17/2024 3:01 PM EDT Restless leg syndrome POCT GLYCATED HEMOGLOBIN, TOTAL Routine 06/22/2024 9:07 AM EST New onset type 2 diabetes mellitus (CMS/HCC) POCT GLUCOSE Routine 06/22/2024 9:04 AM EST New onset type 2 diabetes mellitus (CMS/HCC) documented in this encounter Results * Ferritin (07/17/2024 3:01 PM EDT) Ferritin 14 10 - 250 ng/mL [facility] Blood Venous blood specimen / Unknown 07/17/2024 3:01 PM EDT 07/17/2024 4:49 PM EDT [facility] LAB BLOOD ORDERABLES Lizzy l Result Performing Organization Address City/State/[facility] Co de Phone Number [facility] [address] [place] [address] [phone] * (ABNORMAL) Iron And Total Iron Binding Capacity (07/17/2024 3:01 PM EDT) Iron 38 30 - 160 mcg/dL [facility] Total Iron Binding Capacity 341 228 - 428 mcg/dL [facility] Percent Iron Saturation 11(L) 15 - 50 % [facility] Unsaturated Iron Binding 303 ug/dL [facility] Blood Venous blood specimen / Unknown 07/17/2024 3:01 PM EDT 07/17/2024 4:49 PM EDT [facility] LAB BLOOD ORDERABLES Lizzy l Result [facility] [address] [place] [address] [phone] * (ABNORMAL) POCT HGB A1C (06/22/2024 9:07 AM EST) Hemoglobin A1C 6.3(A) 4.0 - 6.0 % QC Media Lot # [id number] Lot# Expiration Date ,332 Blood 06/22/2024 9:07 AM EST [facility] POINT OF CARE TEST ENTER/ EDIT ORDERABLES Final Result * POCT Glucose (06/22/2024 9:04 AM EST) Glucose Blood, POC 146 60 - 200 mg/dL QC Media Lot # [id number] Lot# Expiration Date ,776 Blood Capillary blood specimen / Unknown 06/22/2024 9:04 AM EST [facility] POINT OF CARE TEST ENTER/ EDIT ORDERABLES Final Result documented in this encounter Visit Diagnoses Diagnosis Restless leg syndrome- Primary Restless legs syndrome (RLS) New onset type 2 diabetes mellitus (CMS/HCC) documented in this encounter Additional Health Concerns Assessment Noted Time PHQ-9 Depression Total Score: 6 08/19/19 23 11:30 AM EDT documented as of this encounter Care Teams Driver Retraining Instructor Relationship Specialty Start Date End Date Name, MD Shon [address] [place] [address] PCP - General Family Medicine 07/03/15 documented as of this encounter
--- OUTSIDE RECORDS SUMMARY | 2024-07-17 17:51 | XMS_ITS | Encounter Summary ---
Author Organization [employer] Address [address] [address] [facility] [address] 7t [place] [address] Care Team Providers Care Battery Starter Name Role Phone Name, Shon HERNÁNDEZ Primary Care Provider [phone] Reason for Visit * Reason Onset Date Comments Med Refill 06/20/2024 Encounter Details Date Type Department Care Team ([facility] st Contact Info) Description 06/20/2024 Refill [facility] MEDICINE 230 [place], [place] [phone] Name, MD Shon 230 [place], [place] [phone] Bipolar I disorder ([facility]) Social History Tobacco Use Types Packs/Day [...] Telephone Encounter - Gato Varma - 06/20/2024 10:40 AM EST TC from pt requesting medication refill. Medications needing refill : clonazePAM (KlonoPIN) 1 MG tablet To be sent to: [facility] - [place], [place] - [address] [place] [address] documented in this encounter Plan of Treatment Upcoming Encounters Date Type Department Care Team (Late st Contact Info) Description 08/06/2024 10:30 AM EDT Clinical Support [facility] MEDICINE [address] [place] [address] Kassidy Watson RN 09/03/2024 11:00 AM EDT Office Visit [facility] MEDICINE [address] [place] [address] Name, MD Shon [address] [place] [address] documented as of this encounter Visit Diagnoses Diagnosis Bipolar I disorder ([facility]) Bipolar I disorder, most recent episode (or current) unspecified documented in this encounter Additional Health Concerns Assessment Noted Time PHQ-9 Depression Total Score: 6 08/19/19 23 11:30 AM EDT documented as of this encounter Care Teams Battery Starter Relationship Specialty Start Date End Date Shon Darling MD [address] [place] [address] PCP - General Family Medicine 07/03/15 documented as of this encounter
--- OUTSIDE RECORDS SUMMARY | 2024-07-17 17:51 | XMS_ITS | Encounter Summary ---
Author Organization [employer] Address [address] 7t [place] [address] Care Team Providers Care Firer Portable Boiler Name Role Phone Name, Shon HERNÁNDEZ Primary Care Provider [phone] Reason for Visit * Reason Onset Date Comments Med Refill 11/01/2023 Encounter Details Date Type Department Care Team ([facility] st Contact Info) Description 11/01/2023 Telephone [facility] MEDICINE [address] [place], [place] [phone] Name, MD Shon [address] [place], [place] [phone] Med Refill Social History Tobacco Use Types Packs/Day Years [...] Telephone Encounter - Kassidy Watson RN - 11/01/2023 12:01 PM EDT Spoke with [facility] pharmacy. Clonazepam RX sent 10/26/23 has not been delivered yet and is being delivered tomorrow. Pt was made aware by pharmacy. * Telephone Encounter - Cindy Chong - 11/01/2023 11:28 AM EDT TC from pt requesting medication refill. Medications needing refill : clonazePAM (KlonoPIN) 1 MG tablet To be sent to: [facility] - [place], [place] - [address] [place] [address] documented in this encounter Plan of Treatment Upcoming Encounters Date Type Department Care Team (Late st Contact Info) Description 08/06/2024 10:30 AM EDT Clinical Support [facility] MEDICINE [address] [place] [address] Kassidy Watson RN 09/03/2024 11:00 AM EDT Office Visit [facility] [address] [place] [address] Name, MD Shon [address] [place] [address] documented as of this encounter Visit Diagnoses Diagnosis Bipolar I disorder ([facility]) Bipolar I disorder, most recent episode (or current) unspecified documented in this encounter Additional Health Concerns Assessment Noted Time PHQ-9 Depression Total Score: 6 08/19/19 23 11:30 AM EDT documented as of this encounter Care Teams Firer Portable Boiler Relationship Specialty Start Date End Date Name, MD Shon [address] [place] [address] PCP - General Family Medicine 07/03/15 documented as of this encounter
--- OUTSIDE RECORDS SUMMARY | 2024-07-17 17:51 | XMS_ITS | Encounter Summary ---
Author Organization [employer] Address [address] 7t [place] [address] Care Team Providers Care Sales Assistant Institutional Sales Name Role Phone Name, Shon HERNÁNDEZ Primary Care Provider [phone] Reason for Visit * Reason Onset Date Comments Med Refill 03/08/2023 Encounter Details Date Type Department Care Team ([facility] st Contact Info) Description 03/08/2023 Telephone [facility] MEDICINE [address] [place], [place] [phone] Name, MD Shon [address] [place], [place] [phone] Med Refill Social History Tobacco Use Types [...] encounter Miscellaneous Notes * Telephone Encounter - Karishma Alaniz - 03/08/2023 2:23 PM EST Tc from pt requesting medication refill on clonazePAM (KlonoPIN) 1 MG tablet to be sent to [facility] pharmacy documented in this encounter Plan of Treatment Upcoming Encounters Date Type Department Care Team (Late st Contact Info) Description 08/06/2024 10:30 AM EDT Clinical Support [facility] MEDICINE [address] [place] [address] Kassidy Watson RN 09/03/2024 11:00 AM EDT Office Visit [facility] MED[facility]INE [address] [place] [address] Name, MD Shon [address] [place] [address] documented as of this encounter Visit Diagnoses Not on filedocumented in this encounter Additional Health Concerns Assessment Noted Time PHQ-9 Depression Total Score: 6 08/19/19 23 11:30 AM EDT documented as of this encounter Care Teams Sales Assistant Institutional Sales Relationship Specialty Start Date End Date Name, MD Shon [address] [place] [phone] PCP - General Family Medicine 07/03/15 documented as of this encounter
== END 2024-07-17 14:59 | disposition home or self-care (01) ==
LOC: HO.HHCL 14:58
PROVIDERS: Internal Medicine Geriatric Medicine
DX: E11.9 Type 2 diabetes mellitus without complications (principal); G62.9 Polyneuropathy, unspecified
CPT/HCPCS: 36415; 80053; 80061; 82043; 82570; 82728; 83540

== ENCOUNTER 2024-11-22 16:18 | Outpatient (REF) | payer MEDICARE, MEDICAID, SELFPAY | END 2024-11-22 16:19 | disposition home or self-care (01) | LOC: HO.HHCLNP 16:18 | PROVIDERS: Visit Provider Internal Medicine Geriatric Medicine | DX: Z79.899 Other long term (current) drug therapy (principal) | CPT/HCPCS: 36415; 80307 ==

== ENCOUNTER 2024-12-06 13:02 | Outpatient (REF) | payer MEDICARE, MEDICAID, SELFPAY ==
--- OUTSIDE RECORDS SUMMARY | 2024-12-06 13:07 | XMS_ITS | Encounter Summary ---
Author Organization [employer] Address [address] [facility] 7t [place] [address] Care Team Providers Care Honeycomb Blanket Maker Name Role Phone Name, Shon HERNÁNDEZ Primary Care Provider [phone] Reason for Visit * Reason Onset Date Comments A1C 04/12/2023 Encounter Details Date Type Department Care Team ([facility] st Contact Info) Description 04/12/[address] [facility] MEDICINE [address], [place] [phone] Name, MD Shon [address] [place] [address] A1C Social History Tobacco Use Types Packs/Day [...] 2:00 PM EST T/C to pt. Through [employer] id - [id number] for below message, pt., schedule for apt. [...] going to be sick) ,and general weakness. [facility] hours are reviewed. Pt. verbally agreed and understood. * Telephone Encounter - Tere Gracia - 04/12/2023 12:15 PM EST TC from JOSE yAoub calling on behalf of her last visit with pt and states pt AC1 came back as a result on 7.0. Please if any questions please contact Jose @ [phone] documented in this encounter Plan of Treatment Upcoming Encounters Date Type Department Care Team (Late st Contact Info) Description 12/17/2024 11:00 AM EDT Office Visit [address] [address] Name, MD Shon [address] [place] [address] 01/01/2025 9:30 AM EDT Clinical Support [address] [address] Kassidy Watson, MARY JANE documented as of this encounter Visit Diagnoses Not on filedocumented in this encounter Additional Health Concerns Assessment Noted Time PHQ-9 Depression Total Score: 6 08/19/19 23 11:30 AM EDT documented as of this encounter Care Teams Honeycomb Blanket Maker Relationship Specialty Start Date End Date NameShon MD [address] [place] [address] PCP - General Family Medicine 07/03/15 documented as of this encounter
== END 2024-12-06 13:03 | disposition home or self-care (01) ==
LOC: HO.HHCLNP 13:02
PROVIDERS: Visit Provider Internal Medicine Geriatric Medicine
DX: Z79.899 Other long term (current) drug therapy (principal)
CPT/HCPCS: 36415; 80307

== ENCOUNTER 2024-12-07 13:24 | Outpatient (REF) | payer MEDICARE, MEDICAID, SELFPAY ==
--- OUTSIDE RECORDS SUMMARY | 2024-12-07 13:27 | XMS_ITS | Encounter Summary ---
Author Organization [employer] Address [address] [facility] 7t [place] [address] Care Team Providers Care Radio Recorder Name Role Phone Name, Shon HERNÁNDEZ Primary Care Provider [phone] Reason for Visit * Reason Onset Date Comments A1C 04/12/2023 Encounter Details Date Type Department Care Team ([facility] st Contact Info) Description 04/12/2023 Telephone [facility] MEDICINE [address] [place], [place] [phone] Name, MD Shon [address] [place] [address] A1C Social History Tobacco Use Types Packs/Day [...] 2:00 PM EST T/C to pt. Through [employer] id - [id number] for below message, pt., schedule for apt. [...] going to be sick) ,and general weakness. [facility] hours are reviewed. Pt. verbally agreed and understood. * Telephone Encounter - Tere Gracia - 04/12/2023 12:15 PM EST TC from JOSE Ayoub calling on behalf of her last visit with pt and states pt AC1 came back as a result on 7.0. Please if any questions please contact Jose @ [phone] documented in this encounter Plan of Treatment Upcoming Encounters Date Type Department Care Team (Late st Contact Info) Description 12/17/2024 11:00 AM EDT Office Visit [address] [address] Name, MD Shon [address] [place] [phone] 01/01/2025 9:30 AM EDT Clinical Support [address] [address] Kassidy Watson, MARY JANE documented as of this encounter Visit Diagnoses Not on filedocumented in this encounter Additional Health Concerns Assessment Noted Time PHQ-9 Depression Total Score: 6 08/19/19 23 11:30 AM EDT documented as of this encounter Care Teams Radio Recorder Relationship Specialty Start Date End Date NameShon MD [address] [place] [address] PCP - General Family Medicine 07/03/15 documented as of this encounter
== END 2024-12-07 13:25 | disposition home or self-care (01) ==
LOC: HO.MAMMO 13:24
PROVIDERS: PCP Internal Medicine Geriatric Medicine; Visit Provider Internal Medicine Geriatric Medicine
DX: Z12.31 Encounter for screening mammogram for malignant neoplasm of breast (principal)
CPT/HCPCS: 77063; 77067

== ENCOUNTER → 2024-12-07 14:30 | Outpatient (BNV) | payer MEDICARE, MEDICAID, SELFPAY | PROVIDERS: PCP Internal Medicine Geriatric Medicine; Visit Provider Internal Medicine | DX: Z12.31 Encounter for screening mammogram for malignant neoplasm of breast (principal) | CPT/HCPCS: 77063; 77067 ==

== ENCOUNTER 2025-01-01 18:27 | Outpatient (REF) | payer MEDICARE, MEDICAID, SELFPAY ==
--- OUTSIDE RECORDS SUMMARY | 2025-01-01 09:30 | XMS_ITS | Encounter Summary ---
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 Details Date Type Department Care Team (Latest Contact Info) Description 01/01/2025 9:30 AM EDT Clinical Support [facility] MEDICINE [address] [place] [address] Kassidy Watson RN Long-term current use of benzodiazepine (Primary Dx) Social History Tobacco Use Types Packs/Day Years Used Date Smoking Tobacco: Never Alcohol Use Standard Drinks/Week Comments Never 0 (1 standard drink = 0.6 oz pur e alcohol) Depression Answer Date Recorded Patient Health Questionnaire-9 Score 2 09/03/2024 Patient Health Questionnaire-9 Score 2 09/03/2024 Last PHQ-9: Questionnaire Data Not on file 0 09/03/2024 Housing Stability Answer Date Recorded What is your housing situation today? I have philly saunders 09/03/[address] you li ve. Do you have problems with any of the following? None of the above 09/03/2024 Food Insecurity Answer Date Recorded Within the past 12 months, y ou worried that your food would run out before you got money to buy more: Never True 09/03/2024 Within the past 12 months,th e food you bought just didn't last and you didn't have enough money to get more: Never True 08/2024 Transportation Answer Date Recorded In the past 12 months, has l ack of transportation kept you from medical appts, meetings, work or from getting things needed for daily living? No 09/03/2024 Utilities Answer Date Recorded In the past 12 months, has t he electric, [employer], oil or water [employer] threatened to shut off services in your home? No 09/03/2024 Depression Answer Date Recorded Patient Health Questionnaire-2 Score 1 09/03/2024 Internet Access Answer Date Recorded Internet Access Q1 Yes 09/03/2024 Internet Access Q2 Not on file 09/03/2024 Comments Unknown Sex and Gender Information Value Date Recorded Sex Assigned at Female 03/01/2022 10:14 AM EDT Legal Sex Female 10:14 AM EDT Gender Identity Female 03/01/2022 10:14 AM EDT Sexual Orientation Straight 03/01/2022 10 :14 AM EDT documented as of this encounter Progress Notes * Kassidy Watson RN - 01/01/2025 9:30 AM EDT SUBJECTIVE: Peyton Juarez is a 59 y.o. 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 Pt states she takes between 0-3 doses a day. If she doesn't leave her home, she doesn't usually take a dose. The patient last took Clonazepam (Klonopin) on: 12/31/2024 Medication effective: Yes Sleep habits: ok Therapist: Yes, first appt coming up 01/14/25 OBJECTIVE: BREAKFAST MANAGER checked: 01/01/2025 Pill count completed for Clonazepam (Klonopin), count today is 20 , anticipated count should be 0, this is as expected. Last PCP visit: 12/17/2024 Controlled substance agreement signed: Controlled Substance Agreement 11/22/2024 DATA PROCESSING CLERK Tier: 1 Current Medications[1] Smoking status: Denies ETOH use: Denies Illicit substances: Denies Marijuana use: No Lab Results Component Value Date POCTHC Negative 01/01/2025 POCCOCAINEUR Negative 01/01/2025 POCOPIATEUR Negative 01/01/2025 DOAUR Negative 01/01/2025 POCAMPHETAMI Negative 01/01/2025 POCBENZODIUR Positive 01/01/2025 POCBARBSCRN Negative 01/01/2025 POCMETHADOUR Positive (A) 01/01/2025 POCBUPSCRN Negative 01/01/2025 POCTCAUR Positive 01/01/2025 POCMDMAUR Negative 01/01/2025 POCOXYCODONE Negative 01/01/2025 POCPHENCYCUR Negative 01/01/2025 PROPOXUR Negative 01/01/2025 FENTANYLURIN Negative 01/01/2025 Reviewed UTOX results with patient. Explained I would send her urine out for MTD confirmation. Pt aware I will call her if the results are abnormal. Patients UTOX has tested positive for MTD multipletimes, urine confirmations have all retruned NEGATIVE. ASSESSMENT: Encounter Diagnosis Name Primary? Long-term current use of benzodiazepine Yes PLAN: Pt aware she has refill of Clonazepam at pharmacy since 12/20/24. Information on acupuncture given: Previously discussed Narcan education provided: Previously discussed Narcan prescription: active Will update PCP with UTOX results. Peyton Larry will continue taking medication as prescribed and follow up at the next DATA PROCESSING CLERK visit or sooner if needed. Peyton Juarez has verbalized understanding of care plan. Future Appointments Date Time Provider Department Center 02/04/2025 10:00 AM Kassidy Watson RN MEDICINE [facility] Kassidy Watson RN [1] Current Outpatient Medications: clonazePAM (KlonoPIN) 1 MG tablet, TAKE 1 TABLET BY MOUTH THREE TIMES DAILY IN THE MORNING, AT NOON, AND AT BEDTIME, Disp: 84 tablet, Rfl: 0 acetaminophen (Tylenol Extra Strength) 500 MG tablet, Take 1 tablet (500 mg) by mouth every 8 (eight) hours if needed for moderate pain., Disp: 90 tablet, Rfl: 0 albuterol (2.5 MG/3ML) 0.083% nebulizer solution, inhale 3 milliliter by nebulization route every 4hours as needed, Disp: 90 mL, Rfl: 1 albuterol 108 (90 Base) MCG/ACT inhaler, inhale 2 puff by inhalation route every 4 - 6 hours as needed, Disp: 18 g, Rfl: 1 atorvastatin (Lipitor) 20 MG tablet, TAKE 1 TABLET BY MOUTH EVERY MORNING, Disp: 30 tablet, Rfl: 5 Blood Glucose Monitoring Suppl (SnapAppointments) w/Device kit, Use to check blood sugar by subcutaneous route once a day, Disp: 1 kit, Rfl: 0 Blood Glucose Monitoring Suppl (Flare3d Verio) w/Device kit, TEST BLOOD SUGAR ONCE DAILY, Disp: 1 kit, Rfl: 0 Blood Pressure kit, Use once a day, Disp: 1 kit, Rfl: 0 calcium carbonate (Calcium Antacid) 500 MG chewable tablet, CHEW AND SWALLOW 1 TABLET BY MOUTH THREE TIMES DAILYCHEW AND SWALLOW 1 TABLET BY MOUTH THREE TIMES DAILY, Disp: 60 tablet, Rfl: 3 cholecalciferol VITAMIN D (Vitamin D-3) 50 MCG (2000 UT) tablet, TAKE 1 TABLET BY MOUTH EVERY MORNING, Disp: 90 tablet, Rfl: 1 Cyanocobalamin (B-12) 2500 MCG sublingual tablet, DISSOLVE 1 TABLET UNDER THE TONGUE EVERY DAY, Disp: , Rfl: Diclofenac Sodium 1 % gel, APPLY TO THE AFFECTED AREA(S) TOPICALLY 2 GRAMS TWICE DAILY, Disp: 100 g, Rfl: 3 famotidine (Pepcid) 20 MG tablet, TAKE 1 TABLET BY MOUTH AT BEDTIME, Disp: , Rfl: ferrous sulfate (Fe Tabs) 325 (65 Fe) MG EC tablet, Take 1 tablet (325 mg) by mouth every other day. Do not crush, chew, or split., Disp: 15 tablet, Rfl: 11 fluticasone (Flonase) 50 MCG/ACT nasal spray, USE 2 SPRAYS IN EACH NOSTRIL ONCE DAILY, Disp: 48 g, Rfl: 0 lactulose (Chronulac) 10 GM/15ML solution, take 15 milliliter by oral route every day as needed forconstipation, Disp: , Rfl: Lancets (OneTouch Delica Plus [id number]) mis, TEST BLOOD SUGAR ONCE DAILY, Disp: 100 each, Rfl: 5 Lancets (OneTouch Delica) lancets 30G, 1 each by Other route Once daily., Disp: 100 each, Rfl: 3 lidocaine (Xylocaine) 2 % solution, Take 10 mL by mouth every 6 (six) hours if needed for moderate pain., Disp: , Rfl: loratadine (Claritin) 10 MG tablet, TAKE 1 TABLET BY MOUTH EVERY MORNING, Disp: 90 tablet, Rfl: 3 melatonin 5 MG tablet, TAKE 1 TABLET BY MOUTH AT BEDTIME, Disp: 30 tablet, Rfl: 2 metFORMIN (Glucophage) 500 MG tablet, TAKE 1 TABLET BY MOUTH TWICE DAILY IN THE MORNING AND IN THE EVENING, Disp: 60 tablet, Rfl: 5 metoprolol tartrate (Lopressor) 25 MG tablet, TAKE 1 TABLET BY MOUTH TWICE DAILY IN THE MORNING ANDAT BEDTIME, Disp: 60 tablet, Rfl: 5 mirtazapine (Remeron) 7.5 MG tablet, TAKE 1 TABLET BY MOUTH AT BEDTIME, Disp: 30 tablet, Rfl: 5 Multiple Vitamin (Multivitamin) tablet, TAKE 1 TABLET BY MOUTH EVERY MORNING WITH FOOD, Disp: 90 tablet, Rfl: 1 naloxone (Narcan) 4 mg/0.1 mL nasal spray, Administer 1 spray (4 mg) into affected nostril(s) if needed for opioid reversal. May repeat every 2-3 minutes if needed, alternating nostrils, until medical assistance becomes available., Disp: 2 each, Rfl: 3 OneTouch Verio test strip, TEST BLOOD SUGAR ONCE DAILY, Disp: 100 strip, Rfl: 5 pantoprazole (ProtoNix) 40 MG EC tablet, Take 40 mg by mouth before breakfast and before evening meal., Disp: , Rfl: risperiDONE (RisperDAL) 2 MG tablet, TAKE 1 TABLET BY MOUTH AT BEDTIME, Disp: 30 tablet, Rfl: 5 sertraline (Zoloft) 100 MG tablet, TAKE 1 TABLET BY MOUTH EVERY MORNING, Disp: 90 tablet, Rfl: 1 SUMAtriptan (Imitrex) 50 MG tablet, TAKE 1 TABLET BY MOUTH AT ONSET OF MIGRAINE. MAY REPEAT ONCE AFTER 2 HOURS IF NEEDED. DO NOT EXCEED 4 TABLETS IN 24 HOURS, Disp: 10 tablet, Rfl: 0 documented in this encounter Plan of Treatment Upcoming Encounters Date Type Department Care Team (Late st Contact Info) Description 02/04/2025 10:00 AM EDT Clinical Support [facility] MEDICINE [address] [place] [address] Kassidy Watson RN Scheduled Orders Name Type Priority Associated Diagnoses Orde r Schedule Drug Monitoring, Methadone Metabolite, Screen, Urine Lab Routine Long-term current use of benzodiazepine Ordered: 01/01/2025 documented as of this encounter Procedures Procedure Name Priority Date/Time Associated Diagnosis Comments POCT MARGE-14 URINE DRUG SCREEN Routine 01/01/2025 9:44 AM EDT Long-term current use of benzodiazepine documented in this encounter Results * (ABNORMAL) POCT MARGE-14 Urine Drug Screen (01/01/2025 9:44 AM EDT) THC Negative Negative Cocaine Screen, Urine Negative Negative Opiate Screen, Urine Negative Negative Methamphetamine Screen Urine Negative Negative Amphetamine Screen, Urine Negative Negative Benzodiazepines Screen, Urine Positive Negative Barbiturate Screen, Urine Negative Negative Methadone Screen, Urine Positive(A) Negative Buprenophine Screen, Urine Negative Negative TCA, Urine Positive Negative MDMA Urine Negative Negative ng/mL Oxycodone Screen, Urine Negative Negative Phencyclidine (PCP), Urine Negative Negative Propoxyphene, Urine Negative Negative Fentanyl, Urine Negative Negative Urine Urine specimen obtained by clean catch procedure / Unknown 01/01/2025 9:44 AM EDT Kassidy Herbert, RN - 01/01/2025 9:44 AM EDT UTOX cup Lot#[id number] Exp. 02/05/26 Internal Pass Control Shon Darling MD POINT OF CARE TEST ENTER/EDIT OR DERABLES Final Result documented in this encounter Visit Diagnoses Diagnosis Long-term current use of benzodiazepine- Primary documented in this encounter Additional Health Concerns Assessment Noted Time PHQ-9 Depression Total Score: 2 09/04/19 25 11:56 AM EDT documented as of this encounter Care Teams Psych Assistant Relationship Specialty Start Date End Date Name, MD Shon [address] [place] [address] PCP - General Family Medicine 07/03/15 documented as of this encounter
--- OUTSIDE RECORDS SUMMARY | 2025-01-01 18:30 | XMS_ITS | Encounter Summary ---
Author Organization [employer] Address [address] [facility] 7t [place] [address] Care Team Providers Care Psychologist Military Personnel Name Role Phone Name, Shon HERNÁNDEZ Primary Care Provider Reason for Visit * Reason Onset Date Comments UTOX Pos MTD 01/01/2025 Encounter Details Date Type Department Care Team (Late st Contact Info) Description 01/01/2025 Telephone [facility] MEDICINE [address] [place], [place] [phone] Kassidy Watson RN UTOX Pos MTD Social History Tobacco Use Types Packs/Day Years [...] your housing situation today? I have philly chip 09/03/[address] you li [...] Telephone Encounter - Kassidy Watson RN - 01/01/2025 9:49 AM EDT Pt had [employer] RV appt today UTOX was Pos MTD, sent out for confirmation. Pt has had several UTOX test pos MTD, confirmations all have come back negative. documented in this encounter Plan of Treatment Upcoming Encounters Date Type Department Care Team (Late st Contact Info) Description 02/04/2025 10:00 AM EDT Clinical Support [facility] MEDICINE [address] [place] [address] Kassidy Watson, RN documented as of this encounter Visit Diagnoses Not on filedocumented in this encounter Additional Health Concerns Assessment Noted Time PHQ-9 Depression Total Score: 2 09/04/19 25 11:56 AM EDT documented as of this encounter Care Teams Psychologist Military Personnel Relationship Specialty Start Date End Date Name, MD Shon [address] [place] [address] PCP - General Family Medicine 07/03/15 documented as of this encounter
--- OUTSIDE RECORDS SUMMARY | 2025-01-01 18:30 | XMS_ITS | Encounter Summary ---
Author Organization [employer] Address [address] 7t [place] [address] Care Team Providers Care Store Standards Associate Name Role Phone Name, Shon HERNÁNDEZ Primary Care Provider [phone] Encounter Details Date Type Department Care Team (Latest Contact Info) Description 01/01/2025 Travel Social History Tobacco Use Types Packs/Day [...] Description 02/04/2025 10:00 AM EDT Clinical Support [facility] MEDICINE [address] [place] [address] Kassidy Watson RN documented as of this encounter Visit Diagnoses Not on filedocumented in this encounter Additional Health Concerns Assessment Noted Time PHQ-9 Depression Total Score: 2 09/04/19 25 11:56 AM EDT documented as of this encounter Care Teams Store Standards Associate Relationship Specialty Start Date End Date Name, MD Shon [address] [place] [address] PCP - General Family Medicine 07/03/15 documented as of this encounter
--- OUTSIDE RECORDS SUMMARY | 2025-01-01 18:31 | XMS_ITS | Encounter Summary ---
Author Organization [employer] Address [address] [facility] 7t [place] [address] Care Team Providers Care International Relations Professor Name Role Phone Name, Shon HERNÁNDEZ Primary Care Provider [phone] Reason for Visit * Reason Onset Date Comments A1C 04/12/2023 Encounter Details Date Type Department Care Team ([facility] st Contact Info) Description 04/12/2023 Telephone [facility] MEDICINE [address] [place], [place] [phone] Name, MD Shon [address] [place] [address] A1C Social History Tobacco Use Types Packs/Day [...] 2:00 PM EST T/C to pt. Through [employer] id - [id number] for below message, pt., schedule for apt. [...] going to be sick) ,and general weakness. [facility] hours are reviewed. Pt. verbally agreed and understood. * Telephone Encounter - Tere Gracia - 04/12/2023 12:15 PM EST TC from JOSE Ayoub calling on behalf of her last visit with pt and states pt AC1 came back as a result on 7.0. Please if any questions please contact Jose @ [phone] documented in this encounter Plan of Treatment Upcoming Encounters Date Type Department Care Team (Late st Contact Info) Description 02/04/2025 10:00 AM EDT Clinical Support [facility] MEDICINE [address] [place] [address] Kassidy Watson, RN documented as of this encounter Visit Diagnoses Not on filedocumented in this encounter Additional Health Concerns Assessment Noted Time PHQ-9 Depression Total Score: 6 08/19/19 23 11:30 AM EDT documented as of this encounter Care Teams International Relations Professor Relationship Specialty Start Date End Date Name, MD Shon [address] [place] [address] PCP - General Family Medicine 07/03/15 documented as of this encounter
--- OUTSIDE RECORDS SUMMARY | 2025-01-01 18:31 | XMS_ITS | Encounter Summary ---
Author Organization [employer] Address [address] [facility] 7t [place] [address] Care Team Providers Care Retail Client Solutions Analyst Name Role Phone Name, Shon HERNÁNDEZ Primary Care Provider [phone] Reason for Visit * Reason Comments Med Refill Encounter Details Date Type Department Care Team ([facility] st Contact Info) Description 07/09/2024 Refill [facility] MEDICINE [address] [place], [place] [phone] Name, MD Shon [address] [place], [place] [phone] Bipolar I disorder ([facility]) Social History Tobacco Use Types Packs/Day Years [...] AM EDT documented as of this encounter Functional Status * Over the past 2 weeks, how often have you been bothered by any of the following problems? Question Answer Date of Assessment Author Patient Health Questionnaire-2 Score 4 07/10/2024 1:14 PM EDT Jovi Mata * Little interest or pleasure in doing things Answer Date of Assessment Author More than half the days 07/10/2024 1:14 PM EDT Jovi Kaplan * Feeling down, depressed, or hopeless Answer Date of Assessment Author More than half the days 07/10/2024 1:14 PM EDT Jovi Kaplan * Trouble falling or staying asleep, or sleeping too much Answer Date of Assessment Author Not at all 07/10/2024 1:14 PM EDT Jovi Rao * Feeling tired or having little energy Answer Date of Assessment Author Several days 07/10/2024 1:14 PM EDT Jovi Rao * Poor appetite or overeating Answer Date of Assessment Author Several days 07/10/2024 1:14 PM EDT Jovi Rao * Feeling bad about yourself - or that you are a failure or have let yourself or your family down Answer Date of Assessment Author Several days 07/10/2024 1:14 PM EDT Jovi Rao * Trouble concentrating on things, such as reading the newspaper or watching television Answer Date of Assessment Author Not at all 07/10/2024 1:14 PM EDT Jovi Rao * Moving or speaking so slowly that other people could have noticed? Or the opposite - being so fidgety or restless that you have been moving around a lot more than usual. Answer Date of Assessment Author Not at all 07/10/2024 1:14 PM EDT Jovi Rao * Thoughts that you would be better off or hurting yourself in some way Answer Date of Assessment Author Several days 07/10/2024 1:14 PM EDT Jovi Rao * Patient Health Questionnaire-9 Score Answer Date of Assessment Author 8 07/10/2024 1:14 PM EDT Jovi Rao * How difficult have these problems made it for you to do your work, take care of things at home, or get along with other people? Answer Date of Assessment Author Very difficult 07/10/2024 1:14 PM EDT Jovi Rao * Over the last 2 weeks, how often have you been bothered by any of the following problems? Question Answer Date of Assessment Author Feeling nervous, anxious, or on edge 3 07/10/2024 1:03 PM EDT Jovi Malone Not being able to stop or control worrying 3 07/10/2024 1:03 PM EDT Jovi Malone Worrying too much about different things 2 07/10/2024 1:03 PM EDT Jovi Malone Trouble relaxing 2 07/10/2024 1:03 PM EDT Jovi Kaplan Being so restless that it is hard to sit still 1 07/10/2024 1:03 PM EDT Jovi Malone Becoming easily annoyed or irritable 1 07/10/2024 1:03 PM EDT Jovi Malone Feeling afraid as if something awful might happen 2 07/10/2024 1:03 PM RONYT Jovi Velasquez KATY-7 Total Score 14 07/10/2024 1:03 PM EDT Jovi Malone documented as of this encounter Plan of Treatment Upcoming Encounters Date Type Department Care Team (Late st Contact Info) Description 02/04/2025 10:00 AM EDT Clinical Support [address] [address] Kassidy Watson, RN documented as of this encounter Visit Diagnoses Diagnosis Bipolar I disorder ([facility]) Bipolar I disorder, most recent episode (or current) unspecified documented in this encounter Additional Health Concerns Assessment Noted Time PHQ-9 Depression Total Score: 6 08/19/19 23 11:30 AM EDT documented as of this encounter Care Teams Retail Client Solutions Analyst Relationship Specialty Start Date End Date Name, MD Shon [address] [place] [address] PCP - General Family Medicine 07/03/15 documented as of this encounter
--- OUTSIDE RECORDS SUMMARY | 2025-01-01 18:31 | XMS_ITS | Encounter Summary ---
Author Organization [employer] Address [address] [place] [address] 7t [place] [address] Care Team Providers Care Kinesiology Internship Name Role Phone Name, Shon HERNÁNDEZ Primary Care Provider [phone] Encounter Details Date Type Department Care Team (Late st Contact Info) Description 04/19/2022 Orders Only [facility] [address] [place], [place] [phone] Nidia Leon LPN Social History Tobacco Use [...] Description 02/04/2025 10:00 AM EDT Clinical Support [facility] MEDICINE [address] [place] [address] Kassidy Watson, RN documented as of this encounter Visit Diagnoses Not on filedocumented in this encounter Care Teams Kinesiology Internship Relationship Specialty Start Date End Date Name, MD Shon [address] [place] [address] PCP - General Family Medicine 07/03/15 documented as of this encounter
--- OUTSIDE RECORDS SUMMARY | 2025-01-01 18:31 | XMS_ITS | Encounter Summary ---
Author Organization [employer] Address [address] [facility] 7t [place] [address] Care Team Providers Care Supervisor Framing Mill Name Role Phone Name, Shon HERNÁNDEZ Primary Care Provider [phone] Encounter Details Date Type Department Care Team (Late st Contact Info) Description 09/28/2024 Orders Only [facility] [address] [place], [place] [phone] Provider, MD Dashawn Social History Tobacco Use Types Packs/Day Years [...] Description 02/04/2025 10:00 AM EDT Clinical Support [facility] MEDICINE [address] [place] [address] Kassidy Watson RN documented as of this encounter Procedures Procedure Name Priority Date/Time Associated Diagnosis Comments COLONOSCOPY Routine 09/27/2024 11:44 AM EDT documented in this encounter Results * Colonoscopy (09/27/2024 11:44 AM EDT) Anatomical Region Laterality Modality Endoscopy us Historical Provider ENDOSCOPY PROCEDURE ORDER [place] Final Result documented in this encounter Visit Diagnoses Not on filedocumented in this encounter Additional Health Concerns Assessment Noted Time PHQ-9 Depression Total Score: 2 09/04/19 25 11:56 AM EDT documented as of this encounter Care Teams Supervisor Framing Mill Relationship Specialty Start Date End Date Name, MD Shon [address] [place] [address] PCP - General Family Medicine 07/03/15 documented as of this encounter
--- OUTSIDE RECORDS SUMMARY | 2025-01-01 18:31 | XMS_ITS | Encounter Summary ---
Author Organization [employer] Address [address] [facility] 7t [place] [address] Care Team Providers Care Cold Work Operator Name Role Phone Name, Shon HERNÁNDEZ Primary Care Provider [phone] Reason for Visit * Reason Onset Date Comments Med Refill 11/01/2023 Encounter Details Date Type Department Care Team ([facility] st Contact Info) Description 11/01/2023 Telephone [facility] MEDICINE [address] [place], [place] [phone] Name, MD Shon [address] [place], [place] [phone] Med Refill Social History Tobacco Use Types [...] - 11/01/2023 12:01 PM EDT Spoke with [facility] pharmacy. Clonazepam RX sent 10/26/23 has not been delivered yet and is being delivered tomorrow. Pt was made aware by pharmacy. * Telephone Encounter - Cindy Chong - 11/01/2023 11:28 AM EDT TC from pt requesting medication refill. Medications needing refill : clonazePAM (KlonoPIN) 1 MG tablet To be sent to: [facility] - [place], [place] - [address] [place] [address] documented in this encounter Plan of Treatment Upcoming Encounters Date Type Department Care Team ([facility] st Contact Info) Description 02/04/2025 10:00 AM EDT Clinical Support [facility] MEDICINE [address] [place] [address] Kassidy Watson, RN documented as of this encounter Visit Diagnoses Diagnosis Bipolar I disorder ([facility]) Bipolar I disorder, most recent episode (or current) unspecified documented in this encounter Additional Health Concerns Assessment Noted Time PHQ-9 Depression Total Score: 6 08/19/19 23 11:30 AM EDT documented as of this encounter Care Teams Cold Work Operator Relationship Specialty Start Date End Date Name, MD Shon [address] [place] [address] PCP - General Family Medicine 07/03/15 documented as of this encounter
--- OUTSIDE RECORDS SUMMARY | 2025-01-01 18:31 | XMS_ITS | Encounter Summary ---
Author Organization [employer] Address [address] [place] [address] [address] [place] [address] Care Team Providers Care Department Of Mathematics Chair Name Role Phone Name, Shon HERNÁNDEZ Primary Care Provider [phone] Reason for Visit * Reason Comments Med Refill Encounter Details Date Type Department Care Team (Late st Contact Info) Description 12/16/2022 Refill [facility] MEDICINE [address] [place] [phone] Name, MD Shon [address] [place], [place] [phone] Bipolar I disorder ([facility]) Social History Tobacco Use Types Packs/Day Years [...] Description 02/04/2025 10:00 AM EDT Clinical Support [facility] MEDICINE [address] [place] [phone] Kassidy Watson, MARY JANE documented as of this encounter Visit Diagnoses Diagnosis Bipolar I disorder ([facility]) Bipolar I disorder, most recent episode (or current) unspecified documented in this encounter Additional Health Concerns Assessment Noted Time PHQ-9 Depression Total Score: 6 08/19/19 23 11:30 AM EDT documented as of this encounter Care Teams Department Of Mathematics Chair Relationship Specialty Start Date End Date Name, MD Shon [address] [place] [address] PCP - General Family Medicine 07/03/15 documented as of this encounter
--- OUTSIDE RECORDS SUMMARY | 2025-01-01 18:31 | XMS_ITS | Encounter Summary ---
Author Organization [employer] Address [address] [facility] 7t [place] [address] Care Team Providers Care Marine Technician Name Role Phone Name, Shon HERNÁNDEZ Primary Care Provider [phone] Reason for Visit * Reason Comments Med Refill Encounter Details Date Type Department Care Team ([facility] st Contact Info) Description 03/02/2023 Refill [facility] MEDICINE [address] [place], [place] [phone] Name, MD Shon [address] [place], [place] [phone] Bipolar I disorder ([facility]) Social History Tobacco Use Types Packs/Day Years [...] 10:00 AM EDT Clinical Support [facility] MEDICINE [address] [place] [address] Kassidy Watson RN documented as of this encounter Visit Diagnoses Diagnosis Bipolar I disorder ([facility]) Bipolar I disorder, most recent episode (or current) unspecified documented in this encounter Additional Health Concerns Assessment Noted Time PHQ-9 Depression Total Score: 6 08/19/19 23 11:30 AM EDT documented as of this encounter Care Teams Marine Technician Relationship Specialty Start Date End Date Name, MD Shon [address] [place] [address] PCP - General Family Medicine 07/03/15 documented as of this encounter
--- OUTSIDE RECORDS SUMMARY | 2025-01-01 18:31 | XMS_ITS | Encounter Summary ---
Author Organization [employer] Address [address] [facility] 7t [place] [address] Care Team Providers Care Head Field Hockey Coach Name Role Phone Name, Shon HERNÁNDEZ Primary Care Provider Reason for Visit * Reason Comments Med Refill Encounter Details Date Type Department Care Team ([facility] st Contact Info) Description 03/16/2024 Refill [facility] MEDICINE [address] [place], [place] [phone] Name, MD Shon [address] [place], [place] [phone] Bipolar I disorder ([facility]) Social History Tobacco Use Types Packs/Day [...] Description 02/04/2025 10:00 AM EDT Clinical Support [facility] MEDICINE [address] [place] [address] Kassidy Watson RN documented as of this encounter Visit Diagnoses Diagnosis Bipolar I disorder ([facility]) Bipolar I disorder, most recent episode (or current) unspecified documented in this encounter Additional Health Concerns Assessment Noted Time PHQ-9 Depression Total Score: 6 08/19/19 23 11:30 AM EDT documented as of this encounter Care Teams Head Field Hockey Coach Relationship Specialty Start Date End Date Name, MD Shon [address] [place] [address] PCP - General Family Medicine 07/03/15 documented as of this encounter
--- OUTSIDE RECORDS SUMMARY | 2025-01-01 18:31 | XMS_ITS | Clinical Summary ---
Author Organization [employer] Address [address] [place] [address] 7[address] [place] [address] Care Team Providers Care Application Dba Name Role Phone Name, Shon HERNÁNDEZ Primary Care Provider [phone] Allergies No known active allergies Medications * This document contains information received from the source organization and may not represent a complete record from that organization. Cyanocobalamin (B-12) 2500 MCG sublingual tablet DISSOLVE 1 TABLET UNDER THE TONGUE EVERY DAY 022 Active famotidine (Pepcid) 20 MG tablet TAKE 1 TABLET BY MOUTH AT BEDTIME 022 Active lactulose (Chronulac) 10 GM/15ML solution take 15 milliliter by oral route every day as needed for constipation 021 Active albuterol (2.5 MG/3ML) 0.083% nebulizer solutionIndicatio ns:Asthma, unspecified asthma severity, unspecified whether complicated, unspecified whether persistent inhale 3 milliliter by nebulization route every 4 hours as needed 90 mL 1 023 Active albuterol 108 (90 Base) MCG/ACT inhalerIndication s:Asthma, unspecified asthma severity, unspecified whether complicated, unspecified whether persistent inhale 2 puff by inhalation route every 4 - 6 hours as needed 18 g 1 023 Active Blood Pressure kitIndications:Hy pertension, unspecified type Use once a day 1 kit 023 Active fluticasone (Flonase) 50 MCG/ACT nasal sprayIndications: Asthma, unspecified asthma severity, unspecified whether complicated, unspecified whether persistent USE 2 SPRAYS IN EACH NOSTRIL ONCE DAILY 48 g 023 Active Diclofenac Sodium 1 % gel APPLY TO THE AFFECTED AREA(S) TOPICALLY 2 GRAMS TWICE DAILY 100 g 3 024 Active Blood Glucose Monitoring Suppl ([employer]) w/Device kitIndications:Ne w onset type 2 diabetes mellitus (CMS/HCC) Use to check blood sugar by subcutaneous route once a day 1 kit 024 Active Lancets (OneTouch Delica) lancets 30GIndications:Ne w onset type 2 diabetes mellitus (CMS/HCC) 1 each by Other route Once daily. 100 each 3 024 Active Blood Glucose Monitoring Suppl ([employer]) w/Device kit TEST BLOOD SUGAR ONCE DAILY 1 kit 024 Active SUMAtriptan (Imitrex) 50 MG tabletIndications :Migraine without status migrainosus, not intractable, unspecified migraine type TAKE 1 TABLET BY MOUTH AT ONSET OF MIGRAINE. MAY REPEAT ONCE AFTER 2 HOURS IF NEEDED. DO NOT EXCEED 4 TABLETS IN 24 HOURS 10 tablet 024 Active lidocaine (Xylocaine) 2 % solution Take 10 mL by mouth every 6 (six) hours if needed for moderate pain. 023 Active pantoprazole (ProtoNix) 40 MG EC tablet Take 40 mg by mouth before breakfast and before evening meal. 023 Active loratadine (Claritin) 10 MG tablet TAKE 1 TABLET BY MOUTH EVERY MORNING 90 tablet 025 Active calcium carbonate (Calcium Antacid) 500 MG chewable tabletIndications :Heartburn CHEW AND SWALLOW 1 TABLET BY MOUTH THREE TIMES DAILYCHEW AND SWALLOW 1 TABLET BY MOUTH THREE TIMES DAILY 60 tablet 025 Active Lancets (OneTouch Delica Plus Nhthap40R) [facility] [place] BLOOD SUGAR ONCE DAILY 100 each 025 Active OneTouch Verio test stripIndications: New onset type 2 diabetes mellitus (CMS/HCC) TEST BLOOD SUGAR ONCE DAILY 100 strip 025 Active metFORMIN (Glucophage) 500 MG tablet TAKE 1 TABLET BY MOUTH TWICE DAILY IN THE MORNING AND IN THE EVENING 60 tablet 025 Active atorvastatin (Lipitor) 20 MG tablet TAKE 1 TABLET BY MOUTH EVERY MORNING 30 tablet 025 Active metoprolol tartrate (Lopressor) 25 MG tabletIndications :Hypertension, unspecified type TAKE 1 TABLET BY MOUTH TWICE DAILY IN THE MORNING AND AT BEDTIME 60 tablet 5 025 Active risperiDONE (RisperDAL) 2 MG tabletIndications :Mood disorder (CMS/HCC) TAKE 1 TABLET BY MOUTH AT BEDTIME 30 tablet 5 Active mirtazapine (Remeron) 7.5 MG tablet TAKE 1 TABLET BY MOUTH AT BEDTIME 30 tablet 5 025 Active ferrous sulfate (Fe Tabs) 325 (65 Fe) MG EC tablet Take 1 tablet (325 mg) by mouth every other day. Do not crush, chew, or split. 15 tablet 11 025 2025 Active cholecalciferol VITAMIN D (Vitamin D-3) 50 MCG (1999 UT) tablet TAKE 1 TABLET BY MOUTH EVERY MORNING 90 tablet 1 025 Active sertraline (Zoloft) 100 MG tabletIndications :Asthma, unspecified asthma severity, unspecified whether complicated, unspecified whether persistent TAKE 1 TABLET BY MOUTH EVERY MORNING 90 tablet 1 025 Active Multiple Vitamin (Multivitamin) tabletIndications :Asthma, unspecified asthma severity, unspecified whether complicated, unspecified whether persistent TAKE 1 TABLET BY MOUTH EVERY MORNING WITH FOOD 90 tablet 1 025 Active melatonin 5 MG tabletIndications :Insomnia, unspecified type TAKE 1 TABLET BY MOUTH AT BEDTIME 30 tablet 2 Active naloxone (Narcan) 4 mg/0.1 mL nasal sprayIndications: Long-term current use of benzodiazepine Administer 1 spray (4 mg) into affected nostril(s) if needed for opioid reversal. May repeat every 2-3 minutes if needed, alternating nostrils, until medical assistance becomes available. 2 each 3 025 2025 Active clonazePAM (KlonoPIN) 1 MG tabletIndications :Bipolar I disorder (CMS/HCC) TAKE 1 TABLET BY MOUTH THREE TIMES DAILY IN THE MORNING, AT NOON, AND AT BEDTIME 84 tablet 025 Active acetaminophen (Tylenol Extra Strength) 500 MG tabletIndications :Chronic pain of left knee Take 1 tablet (500 mg) by mouth every 8 (eight) hours if needed for moderate pain. 90 tablet 025 2024 Active clonazePAM (KlonoPIN) 1 MG tabletIndications :Bipolar I disorder (CMS/HCC) TAKE 1 TABLET BY MOUTH THREE TIMES DAILY IN THE MORNING, AT NOON, AND AT BEDTIME 84 tablet 025 2024 Discontinued Active Problems Problem Noted Date Diagnosed Date Long-term current use of benzodiazepine 11/23/19 25 Anxiety 07/10/2024 Restless leg syndrome 06/22/2024 Assessment & Plan (06/22/2024 9:52 AM EST): Sx seem to be correlated with discontinuation of clonazepam Will obtain iron labs to r/o JOSE Advised pt she has fills for clonazepam available at pharmacy Emphasized importance of attending f/u with [employer] for pill counts and Utox screening, message sent to [employer] RN to reschedule f/u Pt agreeable with plan Type 2 diabetes mellitus treated without insulin 05/24/2023 Assessment & Plan (06/22/2024 9:49 AM [...] 07/07/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 Overview (09/03/2024): Personal history scleroderma of the esophagus, Sousa's esophagus with high- grade dysplasia, previous history of Dima-en-Y gastroenterostomy and near esophagojejunostomy. She follows at [facility] for frequent endoscopies for surveillance, radiofrequency ablation sessions and hybrid APC therapy. Bipolar disorder 04/27/2022 Vertigo 04/27/2022 Hypertensive disorder 12/27/2017 Migraine 02/23/2016 Chronic low back pain 07/24/2015 Resolved Problems Problem Noted Date Diagnosed Date Resolved Date Class 1 obesity 12/17/2022 12/21/2022 Interstitial lung disease 07/07/2022 Epistaxis 04/27/2022 12/21/2022 Hearing loss 04/27/2022 12/21/2022 Systemic sclerosis 04/27/2022 Transaminitis 04/27/2022 09/03/2024 Lumbago with sciatica 03/07/20182022 Lung mass 11/01/2017 08/18/2022 Fatigue 06/15/2017 12/21/2022 Dysphagia 07/24/2015 09/03/2024 Hypercholesterolemia 07/24/2015 023 Impaired glucose tolerance 07/24/2015 0 05/24/2023 Weight decreased 07/24/2015 12/21/2022 Knee pain 02/12/2013 09/03/2024 Encounters * This document contains information received from the source organization and may not represent a complete record from that organization. Date Type Department Care Team Description 01/01/2025 9:30 AM EDT Clinical Support [facility] [address] Kassidy Watson RN Long-term current use of benzodiazepine (Primary Dx) 01/01/2025 Telephone [facility] [place] [address] Kassidy Watson RN UTOX Pos MTD 01/01/2025 Travel 12/17/2024 11:00 AM EDT Office Visit [facility] [place] [address] Shon Darling MD Type 2 diabetes mellitus treated without insulin ([facility]) (Primary Dx); Sousa's esophagus with high grade dysplasia; Bipolar affective disorder in remission ([facility]/HCC); Chronic pain of left knee 12/17/2024 Travel 12/14/2024 Telephone [facility] [place] [address] Tania Holly MA Chart Prep 12/11/2024 Refill [facility] [place] [address] Shon Darling MD Bipolar I disorder (CMS/HCC) 12/06/2024 9:00 AM EDT Clinical Support [facility] [address] Kassidy Watson RN Long-term current use of benzodiazepine (Primary Dx) 12/06/2024 Telephone [facility] [address] Kassidy Watson RN Abnormal UTOX results 12/06/2024 Travel 11/22/2024 9:30 AM EDT Clinical Support [facility] [address] Kassidy Watson RN Long-term current use of benzodiazepine (Primary Dx) 11/22/2024 Telephone [facility] [address] Kassidy Watson RN [employer] Agreement renewed today; UTOX Abnormal 11/22/2024 Refill [facility] [address] [facility] [place] [address] Kassidy Watson RN Long-term current use of benzodiazepine (Primary Dx) 11/22/2024 Travel 11/13/2024 Refill [facility] [place] [address] NameShon MD Bipolar I disorder ([facility]) 10/27/2024 Refill [facility] [place] [address] Shon Darling MD Insomnia, unspecified type 10/22/2024 Refill [facility] [address] [place] [address] Shon Darling MD Bipolar I disorder ([facility]) 10/04/2024 Refill [facility] [place] [address] Nidia Tyler DO Asthma, unspecified asthma severity, unspecified whether complicated, unspecified whether persistent from Last 3 Months Immunizations Immunization Administration Dates Next Due Hep B, adult [...] Sign Reading Time Taken Comments Blood Pressure 110/78 12/17/2024 10:46 AM EDT Pulse 91 12/17/2024 10:46 AM EDT Temperature 37.1 C (98.7 F) 12/17/2024 10:46 AM EDT Respiratory Rate 12 12/17/2024 10:4 6 AM EDT Oxygen Saturation 99% 12/17/2024 10: 46 AM EDT Inhaled Oxygen Concentration - - Weight 73.8 kg (162 lb 12.8 oz) 025 10:46 AM EDT Height 152.4 cm (5') 12/17/2024 10:46 AM EDT Body Mass Index 31.79 12/17/2024 10:46 AM EDT Plan of Treatment Upcoming Encounters Date Type Department Care Team (Late st Contact Info) Description 02/04/2025 10:00 AM EDT Clinical Support [facility] [address] [place] [phone] Kassidy Watson, RN Health Maintenance Due Date Last Done Comments CT Colonography 1965 FIT DNA/Cologuard 1965 FIT 1965 FOBT 1965 Sigmoidoscopy 1965 Diabetes: Foot Exam 1975 Dental Oral Exam 09/09/2020 03/11/2020 Dental Prophylaxis 03/07/2022 09/03/2021, 0 09/11/2020, 03/21/2020 Dental X-Ray: Bitewings 09/04/2022 09/03/2021, 03/11 Dental X-Ray: Full Mouth 03/12/2023 03/11/2020 COVID-19 Vaccine ( season) 2024 03/17/2021, 07/14/2020, 06/16/2020 Influenza Vaccine (#1) 2024 , 02/25/2022, 02/03/2021, Additional history exists Diabetes: Hemoglobin A1C 06/19/2025 025, 06/22/2024, 05/24/2023, Additional history exists Diabetes: Urine Protein Screening 07/17/2025 07/17/2024 Lipid Panel 07/17/2025 07/17/2024, 12/01, 02/06/2021 Alcohol/Substance Use Screening 09/03/2025 09/03/2024 Depression Screening 09/03/2025 09/03/2024, 09/04/19 25 Disability Screening 09/03/2025 09/03/2024 SDOH Screening 09/03/2025 09/03/2024 Eye Exam 10/25/2025 10/26/2023, 10/0 08/2022, 02/03/2023, Additional history exists Mammogram 12/07/2025 12/07/2024, 0905/2022, 01/10/2023, Additional history exists Tobacco Screening 12/17/2025 12/17/2024 Cervical Cancer Screening 02/12/2026 HPV/Cotest 02/12/2026 02/12/2021 Pap Smear 02/12/2026 02/12/2021 DTaP/Tdap/Td Vaccines (3 - Td or Tdap) 12/20/2032 12/20/2022, 11/01/2012 Colonoscopy 09/27/2034 09/27/2024 Colorectal Cancer Screening 09/27/2034 RSV Patients and Patients Aged 60 years [...] patient's age to complete this topic Meningococcal B Vaccine Aged Out No l onger eligible based on patient's age to complete [...] AM EDT Long-term current use of benzodiazepine POCT GLYCATED HEMOGLOBIN, TOTAL Routine 12/17/2024 10:48 AM EDT Type 2 diabetes mellitus treated without insulin (CMS/HCC) POCT GLUCOSE Routine 12/17/2024 10:47 AM EDT Type 2 diabetes mellitus treated without insulin (CMS/HCC) BI MAMMOGRAM SCREENING TOMOSYNTHESIS BILATERAL Routine 12/07/2024 1:26 PM EDT Encounter for screening mammogram for malignant neoplasm of breast POCT MARGE-14 URINE DRUG SCREEN Routine 12/06/2024 9:16 AM EDT Long-term current use of benzodiazepine METHADONE SCREEN, URINE Routine 12/06/2024 9:15 AM EDT Long-term current use of benzodiazepine POCT MARGE-14 URINE DRUG SCREEN Routine 11/22/2024 9:34 AM EDT Long-term current use of benzodiazepine METHADONE SCREEN, URINE Routine 11/22/2024 9:00 AM EDT Long-term current use of benzodiazepine COLONOSCOPY Routine 09/27/2024 11:44 AM EDT ALBUMIN, RANDOM URINE W/CREATININE Routine 07/17/2024 3:01 PM EDT New onset type 2 diabetes mellitus (CMS/HCC) LIPID PANEL, STANDARD Routine 07/17/2024 3:01 PM EDT New onset type 2 diabetes mellitus (CMS/HCC) HM DIABETES EYE EXAM Routine 10/26/2023 PROPHYLAXIS - ADULT Routine 09/03/2021 1 2:00 [...] Recently Relevant to Health Maintenance Results * (ABNORMAL) POCT MARGE-14 Urine Drug Screen (01/01/2025 9:44 AM EDT) Only the most recent of3 resultswithin the time period is included. THC Negative Negative Cocaine Screen, Urine Negative [...] / Unknown 01/01/2025 9:44 AM EDT Kassidy Herbert RN - 01/01/2025 9:44 AM EDT UTOX cup Lot#[id number] Exp. 02/05/26 Internal Pass Control us Shon Darling MD POINT OF CARE TEST ENTER/EDIT OR DERABLES Final Result * (ABNORMAL) POCT HGB A1C (12/17/2024 10:48 AM EDT) Hemoglobin A1C 6.4(A) 4.0 - 5.7 % QC Media Lot # [id number] Lot# Expiration Date Blood 12/17/2024 10:4 8 AM EDT us Shon Darling MD POINT OF CARE TEST ENTER/EDIT OR DERABLES Final Result * POCT Glucose (12/17/2024 10:47 AM EDT) Glucose Blood, POC 183 60 - 200 mg/dL QC Media Lot # [id number] Lot# Expiration Date Blood Capillary blood specimen / Unknown 12/17/2024 10:47 AM EDT us Shon Darling MD POINT OF CARE TEST ENTER/EDIT OR DERABLES Final Result * BI Mammogram Screening Tomosynthesis Bilateral (12/07/2024 1:26 PM EDT) Anatomical Region Laterality Modality Breast Bilateral Mammography 12/07/2024 1:26 PM EDT Narrative 12/17/2024 1:46 PM EDT [facility] [address] [place] [address] Mammography Report Signed Patient: Peyton Juarez MR#: [id number] : 1965 Acct:[id number] Age/Sex: 59 / F ADM Date: 12/07/24 Loc: HO.MAMMO Attending Dr: Shon Darling MD Ordering Physician: Shon Darling MD Results: 1Negative Date of Service: 12/07/24 Follow Up: 1 Year From [facility] Mammogram Procedure(s): MM tomosynthesis screening BI Accession Number(s): [id number] cc: Shon Darling MD EXAMINATION: MM SCREENING DIGITAL BREAST TOMOSYNTHESIS, BILATERAL CLINICAL INFORMATION: Screening. Asymptomatic. COMPARISON: Mammography: Comparison is made with available priors TECHNIQUE: Digital breast mammography with tomosynthesis is performed in both the craniocaudal and mediolateral oblique views along with computer-aided detection (CAD). FINDINGS: There are scattered areas of fibroglandular density (ACR BI-RADS breast composition Category b). There are no significant masses, abnormal calcifications, [...] target due date for their next mammogram. Electronically signed by: Sabrina Mitchell DO 12/17/2024 01:43 PM EDT Dictated By: Sabrina Mitchell DO Signed By: <Electronically signed by Sabrina Mitchell DO in OV> 12/17/24 1343 DD/ 1326 TD/TT: 12/07/24 1356 Pesticide Applicator: Procedure Note Donotuseinterpreter, Image - 12/17/2024 [facility] [address] [place] [address] Mammography Report Signed Patient: Zelalem Juarez#: [id number] : 1965Acct:[id number] Age/Sex: 59 / FADM Date: 12/07/24 Loc: HO.MAMMO Attending Dr: Shon Darling MD Ordering Physician: Shon Darling MDResults: 1Negative Date of Service: 12/07/24Follow Up: 1 Year From Orig inal Mammogram Procedure(s): MM tomosynthesis screening BI Accession Number(s): [id number] cc: Shon Darling MD EXAMINATION: MM SCREENING DIGITAL BREAST TOMOSYNTHESIS, BILATERAL CLINICAL INFORMATION: Screening. Asymptomatic. COMPARISON: Mammography: Comparison is made with available priors TECHNIQUE: Digital breast mammography with tomosynthesis is performed in both the craniocaudal and mediolateral oblique views along with computer-aided detection (CAD). FINDINGS: There are scattered areas of fibroglandular density (ACR BI-RADS breast composition Category b). There are no significant masses, abnormal calcifications, [...] target due date for their next mammogram. Electronically signed by: Sabrina Mitchell DO 12/17/2024 01:43 PM EDT RP Dictated By: Sabrina Mitchell DO Signed By: <Electronically signed by Sabrina Mitchell DO in OV> 12/17/24 1343 DD/ 1326 TD/TT: 12/07/24 1356 Pesticide Applicator: Shon Darling MD IMG BI PROCEDURES Final Result * Drug Monitoring, Methadone Metabolite, Screen, Urine (12/06/2024 9:15 AM EDT) Only the most recent of2 resultswithin the time period is included. Methadone Screen, Urine Not Detected Not Detect ng/mL [facility] Comment:Methadone cut-off is 300 ng/mL.Positive results are unconfirmed and should not be used fornon-medical purposes. Urine (Urine, Random) 12/06/2024 9:15 AM EDT 12/06/2024 1:03 PM EDT us Shon Darling MD LAB URINE ORDERABLES Final Resul t [facility] [address] [place] [phone] * Colonoscopy (09/27/2024 11:44 AM EDT) Anatomical Region Laterality Modality Endoscopy Historical Provider ENDOSCOPY PROCEDURE ORDER SANJUANA Final Result * Albumin, Random Urine W/Creatinine (07/17/2024 3:01 PM EDT) Creatinine, Urine 105.55 mg/dL [facility] Microalbumin Urine 21.0 mg/L [facility] Microalbum Creatinine Ratio Ur 19.8 <30 ug/mg cr [facility] Comment:Albumin/Creatinine R atio Reference Ranges: Normal: < 30 ug/mg creatinine Microalbuminuria: 30 - 300 ug/mg creatinineClinical Albuminuria: > 300 ug/mg creatinine Urine (Urine, Random) 07/17/2024 3:01 PM EDT 07/17/2024 4:19 PM EDT us Shon Darling MD LAB URINE ORDERABLES Final Resul t Performing Organization Address [facility] de Phone Number [facility] [address] [place] [phone] * Lipid Panel, Standard (07/17/2024 3:01 PM EDT) Triglycerides 134 <150 mg/dL [facility] Comment:Desirable Triglyceri de: less than 150 mg/dLBorderline High Triglyceride 150-199 mg/dLHigh Triglyceride: 200-499 mg/dLVery High Triglyceride: greater than or equal to 5OO mg/dL Cholesterol 145 <200 mg/dL [facility] Comment:Desirable Cholestero l: less than 200 mg/dLBorderline High Cholesterol: 200-239 mg/dLHigh Cholesterol: greater than 239 mg/dL LDL Cholesterol Calculated 63 <100 mg/dL [facility] Comment:Desirable LDL: less than 100 mg/dLNear Optimal/Above Optimal LDL: 110- 129 mg/dLBorderline High LDL: 130-159 mg/dLHigh LDL: 160-189 mg/dLVery High LDL: greater than or equal to 190 mg/dL HDL Cholesterol 56 >40 mg/dL [facility] Comment:Desirable HDL: great er than 40 mg/dL Note: This HDL assay may give artificially low results in patients with liver disease. Blood Venous blood specimen / Unknown 07/17/2024 3:01 PM EDT 07/17/2024 4:49 PM EDT us Shon Darling MD LAB BLOOD ORDERABLES Final Resul t Performing Organization Address [facility] Co de Phone Number [facility] [address] [place] [phone] [phone] * Diabetes Eye Exam (10/26/2023) Eye Exam Normal Normal us Shon Darling MD HEALTH MAINTENANCE Final Result * HEPATITIS C AB W/REFL TO HCV RNA, QN, PCR (07/24/2021 10:11 AM EDT) HEPATITIS C ANTIBODY NON-REACT RADHA NON-REACT RADHA [facility] INDEX 0.04 <1.00 [facility] Comment: HCV antibody was non-reactive. There is no laboratory evidence of HCV infection. In most cases, no further action is required. However, if recent HCV exposure is suspected, a test for HCV RNA (test code 27677) is suggested. For additional information please refer to http://[email or web address].Robot App Store/faq/AZB23z2 (This link is being provided for informational/ educational purposes only.) 07/24/2021 10:1 1 AM EDT us Shon Darling MD HISTORICAL/NON ORDERABLE LABS Fi nal Result [facility] [address] * HIV 1/2 ANTIGEN/ANTIBODY,FOURTH GENERATION W/RFL (07/24/2021 10:11 AM EDT) HIV-1/2 ANTIGEN AND ANTIBODIES, 4TH GENERATION W/ REFLEX NON-REACT RADHA NON-REACT RADHA [facility] Comment: HIV-1 antigen and HIV-1/HIV-2 antibodies were not detected. There is no laboratory evidence of HIV infection. PLEASE NOTE: This information has been disclosed to you from records whose confidentiality may be protected by state law. If your state requires such protection, then the state law prohibits you from making any further disclosure of the information without the specific written consent of the person to whom it pertains, or as otherwise permitted by law. A general authorization for the release of medical or other information is NOT sufficient for this purpose. For additional information please refer to http://[email or web address] App Store/faq/TEI170 (This link is being provided for informational/ educational purposes only.) The performance of this assay has not been clinically validated in patients less than 2 years old. 07/24/2021 10:1 1 AM EDT Shon Darling MD LAB BLOOD ORDERABLES Final Resul t Performing Organization Address [facility] de Phone Number [facility] [address] [place] [address], * THINPREP TIS PAP (02/12/2021 11:21 AM EDT) Clinical Information: None given [facility] COMMENT SEE COMMENT [facility] Comment: EXPLANATORY NOTE: The Pap is a screening test for cervical cancer. It is not a diagnostic test and is subject to false negative and false positive results. It is most reliable when a satisfactory sample, regularly obtained, is submitted with relevant clinical findings and history, and when the Pap result is evaluated along with historic and current clinical information. COMMENT: This Pap test has been evaluated with computer assisted technology. [facility] [employer] : SEE COMMENT [facility] Comment: MXD, CT (ASCP) CT screening location: [place] [address] Interpretation/R esult: Negative for intraepithelial lesion or malignancy. [facility] LMP: NONE [facility]IVEN [facility] Prev. BX: NONE [facility]IV[facility] Prev. PAP: NONE [facility]IVEN [facility] SOURCE: None given [facility] Statement Of Adequacy: SEE COMMENT [facility] Comment: Satisfactory for evaluation. Endocervical/transformation zone component present. Age and/or menstrual status not provided 02/12/2021 11:2 1 AM EDT Vidya Shaw CNM LAB PATHOLOGY ORDERABLES Final Result Performing Organization Address [facility] Co de Phone Number [facility] [address] [place] [address], * HPV mRNA E6/E7 (02/12/2021 11:21 AM EDT) HPV nRNA E6/E7 Not Detected Not Detected [facility] Comment: Methodology: Technology Methodology Consultant-Mediated Amplification This assay detects E6/E7 viral messenger RNA (mRNA) from 14 high-risk HPV types (16,18,31,33,35,39,45,51,52,56,58,59,66,68). The analytical performance characteristics of this assay have been determined by [employer]. The modifications have not been cleared or approved by the FDA. This assay has been validated pursuant to the CLIA regulations and is used for clinical purposes. For additional information, please refer to http://education.[employer] App Store/faq/OBV589n7 (This link if provided for information/ educational purposes only.) 02/12/2021 11:2 1 AM EDT us Vidya Shaw CNM LAB BLOOD ORDERABLES Lizzy leigh Result [facility]where [address] from Last 3 Months or Most Recently Relevant to Health Maintenance Insurance [facility] MEDICARE ADVANTAGE HMO [facility] MEDICA[facility] STAND ADULT Care Teams Application Dba Relationship Specialty Start Date End Date Name, MD Shon [address] [place] [address] PCP - General Family Medicine 07/03/15
--- OUTSIDE RECORDS SUMMARY | 2025-01-01 18:31 | XMS_ITS | Encounter Summary ---
Author Organization [employer] Address [address] [place] [address] 7t [place] [address] Care Team Providers Care Hat Sizer Name Role Phone Name, Shon HERNÁNDEZ Primary Care Provider [phone] Encounter Details Date Type Department Care Team (Latest Contact Info) Description 03/21/2020 Abstract [facility] CONVERSIONS Dental, Provider, DDS Social [...] Description 02/04/2025 10:00 AM EDT Clinical Support [facility] MEDICINE [address] [place] [address] Kassidy Watson, RN documented as of this encounter Visit Diagnoses Not on filedocumented in this encounter Care Teams Hat Sizer Relationship Specialty Start Date End Date Name, MD Shon [address] [place] [address] PCP - General Family Medicine 07/03/15 documented as of this encounter
--- OUTSIDE RECORDS SUMMARY | 2025-01-01 18:31 | XMS_ITS | Encounter Summary ---
Author Organization [employer] Address [address] [facility] 7t [place] [address] Care Team Providers Care Assistant Boiler Operator Name Role Phone Name, Shon HERNÁNDEZ Primary Care Provider [phone] Reason for Visit * Reason Comments Med Refill Encounter Details Date Type Department Care Team ([facility] st Contact Info) Description 12/22/2023 Refill [facility] MEDICINE [address] [place], [place] [phone] Name, MD Shon [address] [place], [place] [phone] Bipolar I disorder ([facility]) Social History Tobacco Use Types Packs/Day Years [...] Description 02/04/2025 10:00 AM EDT Clinical Support [facility] MEDICINE [address] [place] [address] Kassidy Watson RN documented as of this encounter Visit Diagnoses Diagnosis Bipolar I disorder ([facility]) Bipolar I disorder, most recent episode (or current) unspecified documented in this encounter Additional Health Concerns Assessment Noted Time PHQ-9 Depression Total Score: 6 08/19/19 23 11:30 AM EDT documented as of this encounter Care Teams Assistant Boiler Operator Relationship Specialty Start Date End Date Name, MD Shon [address] [place] [address] PCP - General Family Medicine 07/03/15 documented as of this encounter
--- OUTSIDE RECORDS SUMMARY | 2025-01-01 18:31 | XMS_ITS | Encounter Summary ---
Author Organization [employer] Address 75 [facility] 7t [place] [address] Care Team Providers Care Metal Roaster Name Role Phone Name, Shon HERNÁNDEZ Primary Care Provider [phone] Reason for Visit * Reason Onset Date Comments Med Refill 03/08/2023 Encounter Details Date Type Department Care Team ([facility] st Contact Info) Description 03/08/2023 Telephone [facility] MEDICINE [address] [place], [place] [phone] Name, MD Shon [address] [place], [place] [phone] Med Refill Social History Tobacco Use Types [...] 1 MG tablet to be sent to [facility] pharmacy documented in this encounter Plan of Treatment Upcoming Encounters Date Type Department Care Team (Late st Contact Info) Description 02/04/2025 10:00 AM EDT Clinical Support [facility] MEDICINE [address] [place] [address] Kassidy Watson RN documented as of this encounter Visit Diagnoses Not on filedocumented in this encounter Additional Health Concerns Assessment Noted Time PHQ-9 Depression Total Score: 6 08/19/19 23 11:30 AM EDT documented as of this encounter Care Teams Metal Roaster Relationship Specialty Start Date End Date Name, MD Shon [address] [place] [address] PCP - General Family Medicine 07/03/15 documented as of this encounter
--- OUTSIDE RECORDS SUMMARY | 2025-01-01 18:31 | XMS_ITS | Encounter Summary ---
Author Organization [employer] Address 75 [facility] 7t [place] [address] Care Team Providers Care Complaint Investigator Name Role Phone Name, Shon HERNÁNDEZ Primary Care Provider Reason for Visit * Reason Onset Date Comments Referral 07/27/2022 Encounter Details Date Type Department Care Team ([facility] st Contact Info) Description 07/27/2022 Telephone [facility] MEDICINE 230 [place], [place] [phone] Name, MD Shon [address] [place] [address] Referral Social History Tobacco Use Types Packs/Day [...] AM EDT T/C placed to pt via [employer] #[id number]. Pt states she is requesting eye care [...] the vision center. Please contact pt at [phone] documented in this encounter Plan of Treatment Upcoming Encounters Date Type Department Care Team (Late st Contact Info) Description 02/04/2025 10:00 AM EDT Clinical Support [facility] MEDICINE [address] [place] [address] Kassidy Watson RN documented as of this encounter Visit Diagnoses Diagnosis Blurred vision, bilateral- Primary Other specified visual disturbances documented in this encounter Care Teams Complaint Investigator Relationship Specialty Start Date End Date Name, MD Shon [address] [place] [address] PCP - General Family Medicine 07/03/15 documented as of this encounter
--- OUTSIDE RECORDS SUMMARY | 2025-01-01 18:31 | XMS_ITS | Encounter Summary ---
Author Organization [employer] Address [address] [place] [address] 7t [place] [address] Care Team Providers Care Platinum Smith Name Role Phone Name, Shon HERNÁNDEZ Primary Care Provider [phone] Reason for Visit * Reason Comments Med Refill Encounter Details Date Type Department Care Team (Late st Contact Info) Description 10/11/2022 Refill [facility] MEDICINE [address] [place] [phone] Name, MD Shon [address] [place] [phone] Mood disorder (CMS/HCC) Social History Tobacco Use [...] Description 02/04/2025 10:00 AM EDT Clinical Support [facility] MEDICINE [address] [place] [address] [phone] Kassidy Watson RN documented as of this encounter Visit Diagnoses Diagnosis Mood disorder (CMS/HCC) Unspecified episodic mood disorder documented in this encounter Additional Health Concerns Assessment Noted Time PHQ-9 Depression Total Score: 6 08/19/19 23 11:30 AM EDT documented as of this encounter Care Teams Platinum Smith Relationship Specialty Start Date End Date Name, MD Shon [address] [place] [address] PCP - General Family Medicine 07/03/15 documented as of this encounter
--- OUTSIDE RECORDS SUMMARY | 2025-01-01 18:31 | XMS_ITS | Encounter Summary ---
Author Organization [employer] Address [address] [place] [address] 7t [place] [address] Care Team Providers Care Operations Accountant Name Role Phone Name, Shon HERNÁNDEZ Primary Care Provider [phone] Encounter Details Date Type Department Care Team (Latest Contact Info) Description 09/03/2021 Abstract [facility] CONVERSIONS Dental, Provider, DDS Social History Tobacco [...] Description 02/04/2025 10:00 AM EDT Clinical Support [facility] MEDICINE [address] [place] [address] Kassidy Watson, RN documented as of this encounter Visit Diagnoses Not on filedocumented in this encounter Care Teams Operations Accountant Relationship Specialty Start Date End Date Name, MD hSon [address] [place] [address] PCP - General Family Medicine 07/03/15 documented as of this encounter
== END 2025-01-01 18:28 | disposition home or self-care (01) ==
LOC: HO.HHCLNP 18:27
PROVIDERS: Visit Provider Internal Medicine Geriatric Medicine
DX: Z79.899 Other long term (current) drug therapy (principal)
CPT/HCPCS: 36415; 80307

== ENCOUNTER 2025-02-28 16:58 | Outpatient (REF) | payer MEDICARE, MEDICAID, SELFPAY ==
--- OUTSIDE RECORDS SUMMARY | 2025-02-28 09:30 | XMS_ITS | Encounter Summary ---
Author Organization [employer] Address [address] [facility] 7t [place] [address] Care Team Providers Care Oil Well Services Supervisor Name Role Phone Name, Shon HERNÁNDEZ Primary Care Provider [phone] Reason for Visit * Reason Comments COPY CAMERA OPERATOR RV Encounter Details Date Type Department Care Team (Latest Contact Info) Description 02/28/2025 9:30 AM EDT Clinical Support [facility] MEDICINE [address] [place] [address] Kassidy Watson RN Long-term current use of [...] t he electric, gas, oil or water [employer] threatened to shut off services in your [...] Progress Notes * Kassidy Watson RN - 02/28/2025 9:30 AM EDT SUBJECTIVE: Peyton Juarez is a 59 y.o. year old female who presents for COPY CAMERA OPERATOR RV Preferred language for medical information: Hungarian Interpreted needed: Yes Liquified Natural Gas Technician service utilized: [employer] Liquified Natural Gas Technician I.D #: [id number] [phone] [id number] Peyton Juarez does report adherence to Clonazepam (Klonopin) 1 mg, take 1 tablet every 8 hours PRN, last refilled 02/19/2025. States she uses only 2 doses a day The patient last took Clonazepam (Klonopin) on: 02/27/2025 Medication effective: Yes Sleep habits: no issues Therapist: Yes OBJECTIVE: COMPENSATION AND BENEFITS MANAGER checked: 02/28/2025 Pill count not completed, pt forgot to bring her Clonazepam to this appointment. Reviewed COPY CAMERA OPERATOR process with her. Reminded her she has forgotten her Clonazepam before so she will need to go pickup her medication and come back. Pt agreeable. Pt returned 30 minutes later. Clonazepam (Klonopin), count today is 8 , anticipated count should be2, this is as expected. Last PCP visit: 12/17/2024 KATY-7 Total Score: 20 (11/22/2024 9:32 AM) Controlled substance agreement signed: Controlled Substance Agreement 11/22/2024 COPY CAMERA OPERATOR Tier: 1 Current Medications[1] Smoking status: Denies ETOH use: Denies Illicit substances: Denies Marijuana use: No Lab Results Component Value Date POCTHC Negative 02/28/2025 POCCOCAINEUR Negative 02/28/2025 POCOPIATEUR Negative 02/28/2025 DOAUR Negative 02/28/2025 POCAMPHETAMI Negative 02/28/2025 POCBENZODIUR Positive (A) 02/28/2025 POCBARBSCRN Negative 02/28/2025 POCMETHADOUR Positive (A) 02/28/2025 POCBUPSCRN Negative 02/28/2025 POCTCAUR Positive (A) 02/28/2025 POCMDMAUR Negative 02/28/2025 POCOXYCODONE Negative 02/28/2025 POCPHENCYCUR Negative 02/28/2025 PROPOXUR Negative 02/28/2025 FENTANYLURIN Negative 02/28/2025 Reviewed UTOX results. Reminded patient her UTOX has tested positive before for Methadone, but the lab confirmations have all come back negative. Advised I would call her if the results are abnormal. ASSESSMENT: Encounter Diagnosis Name Primary? Long-term current use of benzodiazepine Yes PLAN: Information on acupuncture given: Previously discussed Narcan education provided: Previously discussed Narcan prescription: active Will update PCP with UTOX results and send request for Clonazepam refill to PCP. Peyton Juarez will continue taking medication as prescribed and follow up at the next COPY CAMERA OPERATOR visit or sooner if needed. Peyton Juarez has verbalized understanding of care plan. Future Appointments Date Time Provider Department Center 03/21/2025 10:00 AM Kassidy Watson RN MEDICINE [facility] Kassidy Watson RN [1] Current Outpatient Medications: clonazePAM (KlonoPIN) 1 MG tablet, TAKE 1 TABLET BY MOUTH THREE TIMES DAILY IN THE MORNING, AT NOON, AND AT BEDTIME, Disp: 30 tablet, Rfl: 0 Accu-Chek Softclix Lancets lancets, Use as instructed to check blood sugar by finger stick once daily., Disp: 100 each, Rfl: 11 albuterol (2.5 MG/3ML) 0.083% nebulizer solution, inhale [...] tablet, Rfl: 5 Blood Glucose Monitoring Suppl (Accu-Chek Guide) w/Device kit, Use to check blood sugar by finger stick once daily., Disp: 1 kit, Rfl: 0 Blood Glucose Monitoring Suppl (OneTouch Verio) w/Device kit, Use to check blood sugar by subcutaneous route once a day, Disp: 1 kit, Rfl: 0 Blood Glucose Monitoring Suppl (OneTouch Verio) w/Device kit, TEST BLOOD SUGAR ONCE [...] ONCE DAILY, Disp: 48 g, Rfl: 0 glucose blood (Accu-Chek Guide Test) test strip, Use to check blood sugar by finger stick once daily, Disp: 100 each, Rfl: 11 lactulose (Chronulac) 10 GM/15ML solution, take 15 milliliter by oral route every day as needed forconstipation, Disp: , Rfl: Lancets (OneTouch Delica Plus [id number]) misc, TEST BLOOD SUGAR ONCE DAILY, Disp: 100 [...] Care Team (Late st Contact Info) Description 03/21/2025 10:00 AM EST Clinical Support [address] [address] Kassidy Watson, RN documented as of this encounter Procedures Procedure Name Priority Date/Time Associated Diagnosis Comments METHADONE SCREEN, URINE Routine 02/28/2025 10:00 AM EDT Long-term current use of benzodiazepine POCT MARGE-14 URINE DRUG SCREEN Routine 02/28/2025 9:58 AM EDT Long-term current use of benzodiazepine documented in this encounter Results * Drug Monitoring, Methadone Metabolite, Screen, Urine (02/28/2025 10:00 AM EDT) Methadone Screen, Urine Not Detected Not Detect ng/mL [facility] Comment:Methadone cut-off is 300 ng/mL.Positive results are unconfirmed and should not be used fornon-medical purposes. Urine (Urine, Random) 02/28/2025 10:00 AM EDT 02/28/2025 4:59 PM EDT us Shon Darling MD LAB URINE ORDERABLES Final Resul t [facility] [address] [place] [phone] * (ABNORMAL) POCT MARGE-14 Urine Drug Screen (02/28/2025 9:58 AM EDT) THC Negative Negative Cocaine Screen, Urine Negative Negative Opiate Screen, Urine Negative Negative Methamphetamine Screen Urine Negative Negative Amphetamine Screen, Urine Negative Negative Benzodiazepines Screen, Urine Positive(A) Negative Comment:COPY CAMERA OPERATOR pt on Clonazepam Barbiturate Screen, Urine Negative Negative Methadone Screen, Urine Positive(A) Negative Buprenophine Screen, Urine Negative Negative TCA, Urine Positive(A) Negative MDMA Urine Negative Negative ng/mL Oxycodone Screen, Urine Negative Negative Phencyclidine (PCP), Urine Negative Negative Propoxyphene, Urine Negative Negative Fentanyl, Urine Negative Negative Urine Urine specimen obtained by clean catch procedure / Unknown 02/28/2025 9:58 AM EDT Narrative Kassidy Watson RN - 02/28/2025 9:58 AM EDT UTOX cup Lot#[id number] Exp. 02/05/26 Internal Pass Control Shon Darling MD POINT OF CARE TEST ENTER/EDIT OR DERABLES Final Result documented in this encounter Visit Diagnoses Diagnosis Long-term current use of benzodiazepine- Primary documented in this encounter Additional Health Concerns Assessment Noted Time PHQ-9 Depression Total Score: 2 09/04/19 25 11:56 AM EDT documented as of this encounter Care Teams Oil Well Services Supervisor Relationship Specialty Start Date End Date Name, MD Shon [address] [place] [address] PCP - General Family Medicine 07/03/15 documented as of this encounter
--- OUTSIDE RECORDS SUMMARY | 2025-02-28 18:22 | XMS_ITS | Encounter Summary ---
Author Organization [employer] Address 75 [facility] 7t [place] [address] Care Team Providers Care Patient Registration Manager Name Role Phone Name, Shon HERNÁNDEZ Primary Care Provider [phone] Reason for Visit * Reason Onset Date Comments Med Refill 11/01/2023 Encounter Details Date Type Department Care Team ([facility] st Contact Info) Description 11/01/[address] [facility] MEDICINE [address] [place], [place] [phone] Name, MD Shon [address] [place], [place] [phone] Med Refill Social History Tobacco Use Types [...] - 11/01/2023 12:01 PM [address] with [facility] pharmacy. Clonazepam RX sent 10/26/23 has not been delivered yet and is being delivered tomorrow. Pt was made aware by pharmacy. * Telephone Encounter - Cindy Chong - 11/01/2023 11:28 AM EDT TC from pt requesting medication refill. Medications needing refill : clonazePAM (KlonoPIN) 1 MG tablet To be sent to: [facility] - [place], [place] - [address] [place] [address] documented in this encounter Plan of Treatment Upcoming Encounters Date Type Department Care Team ([facility] st Contact Info) Description 03/21/2025 10:00 AM EST Clinical Support [facility] MEDICINE [address] [place] [address] Kassidy Watson, RN documented as of this encounter Visit Diagnoses Diagnosis Bipolar I disorder (CMS/HCC) (HCC) Bipolar I disorder, most recent episode (or current) unspecified documented in this encounter Additional Health Concerns Assessment Noted Time PHQ-9 Depression Total Score: 6 08/19/19 23 11:30 AM EDT documented as of this encounter Care Teams Patient Registration Manager Relationship Specialty Start Date End Date Name, MD Shon [address] [place] [address] PCP - General Family Medicine 07/03/15 documented as of this encounter
--- OUTSIDE RECORDS SUMMARY | 2025-02-28 18:22 | XMS_ITS | Encounter Summary ---
Author Organization [employer] Address 75 [facility] 7t [place] [address] Care Team Providers Care Dredge Mechanic Name Role Phone Name, Shon HERNÁNDEZ Primary Care Provider [phone] Reason for Visit * Reason Comments Med Refill Encounter Details Date Type Department Care Team ([facility] st Contact Info) Description 12/22/2023 Refill [facility] MEDICINE [address] [place], [place] [phone] Name, MD Shon [address] [place], [place] [phone] Bipolar I disorder ([facility]) Social History Tobacco Use Types [...] Description 03/21/2025 10:00 AM EST Clinical Support [facility] MEDICINE [address] [place] [address] Kassidy Watson RN documented as of this encounter Visit Diagnoses Diagnosis Bipolar I disorder (CMS/HCC) (HCC) Bipolar I disorder, most recent episode (or current) unspecified documented in this encounter Additional Health Concerns Assessment Noted Time PHQ-9 Depression Total Score: 6 08/19/19 23 11:30 AM EDT documented as of this encounter Care Teams Dredge Mechanic Relationship Specialty Start Date End Date Name, MD Shon [address] [place] [address] PCP - General Family Medicine 07/03/15 documented as of this encounter
--- OUTSIDE RECORDS SUMMARY | 2025-02-28 18:22 | XMS_ITS | Encounter Summary ---
Author Organization [employer] Address 75 [facility] 7t [place] [address] Care Team Providers Care Mainspring Reverse Winder Name Role Phone Name, Shon HERNÁNDEZ Primary Care Provider [phone] Reason for Visit * Reason Onset Date Comments A1C 04/12/2023 Encounter Details Date Type Department Care Team ([facility] st Contact Info) Description 04/12/2023 Telephone [facility] MEDICINE [address] [place], [place] [phone] Name, MD Shon [address] [place] [address] A1C Social History Tobacco Use Types Packs/Day [...] 2:00 PM EST T/C to pt. Through [employer] id - [id number] for below message, pt., schedule for apt. [...] going to be sick) ,and general weakness. [facility] hours are reviewed. Pt. verbally agreed and understood. * Telephone Encounter - Tere Gracia - 04/12/2023 12:15 PM EST TC from JOSE Ayoub calling on behalf of her last visit with pt and states pt AC1 came back as a result on 7.0. Please if any questions please contact Jose @ [phone] documented in this encounter Plan of Treatment Upcoming Encounters Date Type Department Care Team (Late st Contact Info) Description 03/21/2025 10:00 AM EST Clinical Support [facility] MEDICINE [address] [place] [address] Kassidy Watson, RN documented as of this encounter Visit Diagnoses Not on filedocumented in this encounter Additional Health Concerns Assessment Noted Time PHQ-9 Depression Total Score: 6 08/19/19 23 11:30 AM EDT documented as of this encounter Care Teams Mainspring Reverse Winder Relationship Specialty Start Date End Date Name, MD Shon [address] [place] [address] PCP - General Family Medicine 07/03/15 documented as of this encounter
--- OUTSIDE RECORDS SUMMARY | 2025-02-28 18:23 | XMS_ITS | Encounter Summary ---
Author Organization [employer] Address [address] [facility] 7t [place] [address] Care Team Providers Care Buttermaker Helper Name Role Phone Name, Shon HERNÁNDEZ Primary Care Provider [phone] Reason for Visit * Reason Comments Med Refill Encounter Details Date Type Department Care Team ([facility] st Contact Info) Description 03/02/2023 Refill [facility] [address] [place], [place] [phone] Name, MD Shon [address] [place], [place] [phone] Bipolar I disorder ([facility] Social History Tobacco Use Types [...] Description 03/21/2025 10:00 AM EST Clinical Support [facility] [address] [place] [address] Kassidy Watson RN documented as of this encounter Visit Diagnoses Diagnosis Bipolar I disorder (CMS/HCC) (HCC) Bipolar I disorder, most recent episode (or current) unspecified documented in this encounter Additional Health Concerns Assessment Noted Time PHQ-9 Depression Total Score: 6 08/19/19 23 11:30 AM EDT documented as of this encounter Care Teams Buttermaker Helper Relationship Specialty Start Date End Date Name, MD Shon [address] [place] [address] PCP - General Family Medicine 07/03/15 documented as of this encounter
--- OUTSIDE RECORDS SUMMARY | 2025-02-28 18:23 | XMS_ITS | Encounter Summary ---
Author Organization [employer] Address [address] [place] [address] 7 [place] [address] Care Team Providers Care Ophthalmology Surgical Technician Name Role Phone Name, Shon HERNÁNDEZ Primary Care Provider [phone] Reason for Visit * Reason Comments Med Refill Encounter Details Date Type Department Care Team (Late st Contact Info) Description 12/16/2022 Refill [facility] [address] [place] [address] [phone] Name, MD Shon [address] [place] [phone] Bipolar I disorder ([facility]) Social History Tobacco [...] Description 03/21/2025 10:00 AM EST Clinical Support [facility] [address] [place] [phone] Kassidy Watson, RN documented as of this encounter Visit Diagnoses Diagnosis Bipolar I disorder (CMS/HCC) (HCC) Bipolar I disorder, most recent episode (or current) unspecified documented in this encounter Additional Health Concerns Assessment Noted Time PHQ-9 Depression Total Score: 6 08/19/19 23 11:30 AM EDT documented as of this encounter Care Teams Ophthalmology Surgical Technician Relationship Specialty Start Date End Date Name, MD Shon [address] [place] [address] PCP - General Family Medicine 07/03/15 documented as of this encounter
--- OUTSIDE RECORDS SUMMARY | 2025-02-28 18:23 | XMS_ITS | Encounter Summary ---
Author Organization [employer] Address [address] [place] [address] 7 [place] [address] Care Team Providers Care Planner Internship Name Role Phone Name, Shon HERNÁNDEZ Primary Care Provider [phone] Reason for Visit * Reason Comments Med Refill Encounter Details Date Type Department Care Team (Late st Contact Info) Description 10/11/2022 Refill [facility] [address] [place] [address] [phone] Name, MD Shon [address] [place] [address] [phone] Mood disorder (CMS/HCC) Social History Tobacco Use [...] Description 03/21/2025 10:00 AM EST Clinical Support [facility] [address] [place] [address] [phone] Kassidy Watson RN documented as of this encounter Visit Diagnoses Diagnosis Mood disorder (CMS/HCC) Unspecified episodic mood disorder documented in this encounter Additional Health Concerns Assessment Noted Time PHQ-9 Depression Total Score: 6 08/19/19 23 11:30 AM EDT documented as of this encounter Care Teams Planner Internship Relationship Specialty Start Date End Date Name, MD Shon [address] [place] [address] PCP - General Family Medicine 07/03/15 documented as of this encounter
--- OUTSIDE RECORDS SUMMARY | 2025-02-28 18:23 | XMS_ITS | Encounter Summary ---
Author Organization [employer] Address [address] [place] [address] 7t [place] [address] Care Team Providers Care Melter Supervisor Electric Arc Furnace Name Role Phone Name, Shon HERNÁNDEZ Primary Care Provider [phone] Encounter Details Date Type Department Care Team (Late st Contact Info) Description 04/19/2022 Orders Only [facility] P[facility]S [address] [place] [address] Nidia Leon LPN Social History Tobacco Use [...] Description 03/21/2025 10:00 AM EST Clinical Support [facility] [address] [place] [address] Kassidy Watson, RN documented as of this encounter Visit Diagnoses Not on filedocumented in this encounter Care Teams Melter Supervisor Electric Arc Furnace Relationship Specialty Start Date End Date Name, MD Shon [address] [place] [address] PCP - General Family Medicine 07/03/15 documented as of this encounter
--- OUTSIDE RECORDS SUMMARY | 2025-02-28 18:23 | XMS_ITS | Clinical Summary ---
Author Organization [email or web address] Address [address] [place] [address] 7t [place] [address] Care Team Providers Care Auto Body Estimator Name Role Phone Name, Shon HERNÁNDEZ Primary Care Provider [phone] Allergies No known active allergies Medications * [...] 3 024 Active Blood Glucose Monitoring Suppl (AkvolutionToFront Up VerWobeek) w/Device kitIndications:Ne w onset type 2 diabetes mellitus (HCC) Use to check blood sugar by subcutaneous route once a day 1 kit 024 Active Lancets (OneTouch Delica) lancets 30GIndications:Ne w onset type 2 diabetes mellitus (HCC) 1 each by Other route Once daily. 100 each 3 024 Active Blood Glucose Monitoring Suppl (Hepa Wash VerWobeek) w/Device kit TEST BLOOD SUGAR ONCE DAILY [...] BY MOUTH EVERY MORNING 90 tablet 3 025 Active calcium carbonate (Calcium Antacid) 500 MG chewable tabletIndications :Heartburn CHEW AND SWALLOW 1 TABLET BY MOUTH THREE TIMES DAILYCHEW AND SWALLOW 1 TABLET BY MOUTH THREE TIMES DAILY 60 tablet 3 025 Active Lancets (OneTouch Delica Plus [id number]) [facility] TEST BLOOD SUGAR ONCE DAILY 100 each 5 025 Active OneTouch Verio test stripIndications: New onset type 2 diabetes mellitus (HCC) TEST BLOOD SUGAR ONCE DAILY 100 strip 5 025 Active ferrous sulfate (Fe Tabs) [...] EVERY MORNING WITH FOOD 90 tablet 1 Active naloxone (Narcan) 4 mg/0.1 mL nasal sprayIndications: Long-term current use of benzodiazepine Administer 1 spray (4 mg) into affected nostril(s) if needed for opioid reversal. May repeat every 2-3 minutes if needed, alternating nostrils, until medical assistance becomes available. 2 each 3 025 2025 Active atorvastatin (Lipitor) 20 MG tablet TAKE 1 TABLET BY MOUTH EVERY MORNING 30 tablet 5 Active metoprolol tartrate (Lopressor) 25 MG tabletIndications :Hypertension, unspecified type TAKE 1 TABLET BY MOUTH TWICE DAILY IN THE MORNING AND AT BEDTIME 60 tablet 5 025 Active mirtazapine (Remeron) 7.5 MG tablet TAKE 1 TABLET BY MOUTH AT BEDTIME 30 tablet 5 025 Active risperiDONE (RisperDAL) 2 MG tabletIndications :Mood disorder (CMS/HCC) TAKE 1 TABLET BY MOUTH AT BEDTIME 30 tablet 5 025 Active melatonin 5 MG tabletIndications :Insomnia, unspecified type TAKE 1 TABLET BY MOUTH AT BEDTIME 30 tablet 2 Active metFORMIN (Glucophage) 500 MG tablet TAKE 1 TABLET BY MOUTH TWICE DAILY IN THE MORNING AND IN THE EVENING 60 tablet 5 Active Blood Glucose Monitoring Suppl (Accu-Chek Guide) w/Device kitIndications:Ty pe 2 diabetes mellitus treated without insulin (HCC) Use to check blood sugar by finger stick once daily. 1 kit Active glucose blood (Accu-Chek Guide Test) test stripIndications: Type 2 diabetes mellitus treated without insulin (HCC) Use to check blood sugar by finger stick once daily 100 each 11 025 Active Accu-Chek Softclix Lancets lancetsIndication s:Type 2 diabetes mellitus treated without insulin (HCC) Use as instructed to check blood sugar by finger stick once daily. 100 each 11 Active clonazePAM (KlonoPIN) 1 MG tabletIndications :Bipolar I disorder (CMS/HCC) (HCC) TAKE 1 TABLET BY MOUTH THREE TIMES DAILY IN THE MORNING, AT NOON, AND AT BEDTIME. Do not start before March 01, 2025. 84 tablet 2024 Active metFORMIN (Glucophage) 500 MG tablet TAKE 1 TABLET BY MOUTH TWICE DAILY IN THE MORNING AND IN THE EVENING 60 tablet 5 025 2024 Discontinued melatonin 5 MG tabletIndications :Insomnia, unspecified type TAKE 1 TABLET BY MOUTH AT BEDTIME 30 tablet 2 2024 Discontinued clonazePAM (KlonoPIN) 1 MG tabletIndications :Bipolar I disorder (CMS/HCC) ([facility]) TAKE 1 TABLET BY MOUTH THREE TIMES DAILY IN THE MORNING, AT NOON, AND AT BEDTIME 84 tablet 2024 Discontinued Blood Glucose Monitoring Suppl (Accu-Chek Guide) w/Device kit 2024 Discontinued(R eorder (will not trigger notification to Pharmacy)) glucose blood (Accu-Chek Guide Test) test strip 1 each by Other route. 2024 Discontinued(F ormulary change) Accu-Chek Softclix Lancets lancets by Other route. Use as instructed 2024 Discontinued(F ormulary change) clonazePAM (KlonoPIN) 1 MG tabletIndications :Bipolar I disorder (CMS/HCC) ([facility]) TAKE 1 TABLET BY MOUTH THREE TIMES DAILY IN THE MORNING, AT NOON, AND AT BEDTIME 30 tablet 2024 Discontinued(R eorder (will not trigger notification [...] pharmacy Emphasized importance of attending f/u with HOTEL REGISTRATION CLERK for pill counts and Utox screening, message sent to HOTEL REGISTRATION CLERK RN to reschedule f/u Pt agreeable with [...] 1 obesity 12/17/2022 12/21/2022 Interstitial lung disease (CMS/HCC) 07/07/2022 08/18/2022 Epistaxis 04/27/2022 12/21/2022 Hearing loss 04/27/2022 12/21/2022 Systemic sclerosis (CMS/HCC) 04/27/2022 09/03/2024 Transaminitis 04/27/2022 09/03/2024 Lumbago with sciatica 03/07/20182022 Lung mass 11/01/2017 08/18/2022 Fatigue 06/15/2017 12/21/2022 Dysphagia 07/24/2015 09/03/2024 Hypercholesterolemia 07/24/2015 023 Impaired glucose tolerance 07/24/2015 0 05/24/2023 Weight decreased 07/24/2015 12/21/2022 Knee pain 02/12/2013 09/03/2024 Encounters * This document contains information received from the source organization and may not represent a complete record from that organization. Date Type Department Care Team Description 02/28/2025 9:30 AM EDT Clinical Support [facility] [address] [facility] [place] [address] Kassidy Watson RN Long-term current use of benzodiazepine (Primary Dx) 02/28/2025 Refill [facility] [address] [facility] [place] [address] Kassidy Watson RN Bipolar I disorder ([facility]) ([facility]) 02/28/2025 Travel 02/18/2025 Refill [facility] [address] [facility] [place] [address] Shon Darling MD Bipolar I disorder ([facility]) ([facility]) 02/12/2025 Refill [facility] [address] [facility] [place] [address] Shon Darling MD Type 2 diabetes mellitus treated without insulin ([facility]) (Primary Dx) 02/04/2025 Telephone [facility] [address] [facility] [place] [address] Kassidy Watson RN [facility] HOTEL REGISTRATION CLERK RV today 02/04/2025 Refill [facility] [address] [place] [address] Shon Darling MD Insomnia, unspecified type 01/05/2025 Refill [facility] P[facility]S [address] [place] [address] Shon Darling MD Hypertension, unspecified type; Mood disorder ([facility]) 01/03/2025 Refill [facility] PEDS [address] [place] [address] Shon Darling MD 01/01/2025 9:30 AM EDT Clinical Support [facility] [address] [facility] [place] [address] Kassidy Watson RN Long-term current use of benzodiazepine (Primary Dx) 01/01/2025 Telephone [facility] [address] [place] [address] Kassidy Watson RN UTOX Pos MTD 01/01/2025 Travel 12/17/2024 11:00 AM EDT Office Visit [facility] [address] [place] [address] Shon Darling MD Type 2 diabetes mellitus treated without insulin ([facility]) (Primary Dx); Sousa's esophagus with high grade dysplasia; Bipolar affective disorder in remission ([facility]); Chronic pain of left knee 12/17/2024 Travel 12/14/2024 Telephone [facility] [address] [place] [address] Tania Holly [place] Chart Prep 12/11/[address] [address] Shon Darling MD Bipolar I disorder ([facility]) 12/06/2024 9:00 AM EDT Clinical Support [address] [address] Kassidy Watson RN Long-term current use of benzodiazepine (Primary Dx) 12/06/[address] [address] Kassidy Watson RN Abnormal UTOX results 12/06/2024 Travel from Last 3 Months Immunizations Immunization Administration [...] t he electric, gas, oil or water [employer] threatened to shut off services in your [...] Description 03/21/2025 10:00 AM EST Clinical Support [facility] [address] [place] [phone] Kassidy Watson, MARY JANE Health Maintenance Due Date Last Done Comments [...] Screening 07/17/2025 07/17/2024 Lipid Panel 07/17/2025 07/17/2024, 08/2 07/2022, 02/06/2021 Alcohol/Substance Use Screening 09/03/2025 09/03/2024 Depression Screening 09/03/2025 09/03/2024, 09/04/19 25 Disability Screening 09/03/2025 09/03/2024 SDOH Screening 09/03/2025 09/03/2024 Eye Exam 10/25/2025 10/26/2023, 10/0 08/2022, 02/03/2023, Additional history exists Mammogram 12/07/2025 12/07/2024, 09/05/2022, 01/10/2023, Additional history exists Tobacco Screening 12/17/2025 [...] benzodiazepine POCT MARGE-14 URINE DRUG SCREEN Routine 01/01/2025 9:44 AM EDT Long-term current use of benzodiazepine METHADONE SCREEN, URINE Routine 01/01/2025 9:30 AM EDT Long-term current use of benzodiazepine [...] Recently Relevant to Health Maintenance Results * Drug Monitoring, Methadone Metabolite, Screen, Urine (02/28/2025 10:00 AM EDT) Only the most recent of3 resultswithin the time period is included. Methadone Screen, Urine Not Detected Not Detect ng/mL [facility] Comment:Methadone cut-off is 300 ng/mL.Positive results are unconfirmed and should not be used fornon-medical purposes. Urine (Urine, Random) 02/28/2025 10:00 AM EDT 02/28/2025 4:59 PM EDT us Shon Name LAB URINE ORDERABLES Final Resul t [facility] [address] [place] [phone] * (ABNORMAL) POCT MARGE-14 Urine Drug Screen (02/28/2025 9:58 AM EDT) Only the most recent of3 resultswithin the time period is included. THC Negative Negative Cocaine Screen, Urine Negative Negative Opiate Screen, Urine Negative Negative Methamphetamine Screen Urine Negative Negative Amphetamine Screen, Urine Negative Negative Benzodiazepines Screen, Urine Positive(A) Negative Comment:HOTEL REGISTRATION CLERK pt on Clonazepam Barbiturate Screen, Urine Negative [...] - 02/28/2025 9:58 AM EDT UTOX cup Lot#[id number] Exp. 02/05/26 Internal Pass Control us Shon [...] PM EDT Narrative 12/17/2024 1:46 PM EDT [facility] [address] [place], [place] [address] Mammography Report Signed Patient: Peyton Juarez MR#: [id number] : 1965 Acct:[id number] Age/Sex: 59 / F ADM Date: 12/07/24 Loc: HO.MAMMO Attending Dr: Shon Darling MD Ordering Physician: Shon Darling MD Results: 1Negative Date of Service: 12/07/24 Follow Up: 1 Year From Orig inal Mammogram Procedure(s): MM tomosynthesis screening BI Accession Number(s): [id number] cc: Shon Darling MD EXAMINATION: MM SCREENING [...] 12/17/24 1343 DD/ 1326 TD/TT: 12/07/24 1356 Inserting Operator: Procedure Note Donotuseinterpreter, Image - 12/17/2024 [facility] [address] [place], [place] [address] Mammography Report Signed Patient: Zelalem Juarez#: [id number] : 1965Acct:[id number] Age/Sex: 59 / FADM Date: 12/07/24 Loc: DARLENE Attending Dr: Shon Darling MD Ordering Physician: Shon Darlingesults: 1Negative Date of Service: 12/07/24Follow Up: 1 Year From Orig inal Mammogram Procedure(s): MM tomosynthesis screening BI Accession Number(s): [id number] cc: Name,Shon HERNÁNDEZ EXAMINATION: MM SCREENING DIGITAL BREAST TOMOSYNTHESIS, BILATERAL [...] 12/17/24 1343 DD/ 1326 TD/TT: 12/07/24 1356 Inserting Operator: us Menendez Name MD CHRIS BI PROCEDURES Final Result * Colonoscopy (09/27/2024 11:44 AM EDT) Anatomical Region Laterality Modality Endoscopy Historical Provider ENDOSCOPY PROCEDURE ORDER SANJUANA Final Result * Albumin, Random Urine W/Creatinine (07/17/2024 3:01 PM EDT) Creatinine, Urine 105.55 mg/dL [facility] Microalbumin Urine 21.0 mg/L [facility] Microalbum Creatinine Ratio Ur 19.8 <30 ug/mg cr [facility] Comment:Albumin/Creatinine R atio Reference Ranges: Normal: < 30 ug/mg creatinine Microalbuminuria: 30 - 300 ug/mg creatinineClinical Albuminuria: > 300 ug/mg creatinine Urine (Urine, Random) 07/17/2024 3:01 PM EDT 07/17/2024 4:19 PM EDT us Shon Darling MD LAB URINE ORDERABLES Final Resul t Performing Organization Address [facility] Co de Phone Number [facility] [address] [place] [address] [phone] * Lipid Panel, Standard (07/17/2024 3:01 PM EDT) Triglycerides 134 <150 mg/dL [facility] Comment:Desirable Triglyceri de: less than 150 mg/dLBorderline High Triglyceride 150-199 mg/dLHigh Triglyceride: 200-499 mg/dLVery High Triglyceride: greater than or equal to 5OO mg/dL Cholesterol 145 <200 mg/dL [facility] Comment:Desirable Cholestero l: less than 200 mg/dLBorderline High Cholesterol: 200-239 mg/dLHigh Cholesterol: greater than 239 mg/dL LDL Cholesterol Calculated 63 <100 mg/dL [facility] Comment:Desirable LDL: less than 100 mg/dLNear Optimal/Above Optimal LDL: 110- 129 mg/dLBorderline High LDL: 130-159 mg/dLHigh LDL: 160-189 mg/dLVery High LDL: greater than or equal to 190 mg/dL HDL Cholesterol 56 >40 mg/dL [facility] Comment:Desirable HDL: great er than 40 mg/dL Note: This HDL assay may give artificially low results in patients with liver disease. Blood Venous blood specimen / Unknown 07/17/2024 3:01 PM EDT 07/17/2024 4:49 PM EDT us Shon Darling MD LAB BLOOD ORDERABLES Final Resul t Performing Organization Address City/[facility]/ZIP Co de Phone Number [facility] [address] [place] [address] [phone] * Hm Diabetes Eye Exam (10/26/2023) Eye Exam Normal Normal us Shon Darling MD HEALTH MAINTENANCE Final Result * HEPATITIS C AB W/REFL TO HCV RNA, QN, PCR (07/24/2021 10:11 AM EDT) HEPATITIS C ANTIBODY NON-REACT RADHA NON-REACT RADHA [facility] INDEX 0.04 <1.00 [facility] Comment: HCV antibody was non-reactive. There is no laboratory evidence of HCV infection. In most cases, no further action is required. However, if recent HCV exposure is suspected, a test for HCV RNA (test code 55505) is suggested. For additional information please refer to http://JustFoodForDogs.ScalIT/faq/WYW69t9 (This link is being provided for informational/ educational purposes only.) 07/24/2021 10:1 1 AM EDT us Shon Darling MD HISTORICAL/NON ORDERABLE LABS Fi nal Result Performing Organization Address City/State/[facility] Co de Phone Number [facility] [address] * HIV 1/2 ANTIGEN/ANTIBODY,FOURTH GENERATION W/RFL (07/24/2021 10:11 AM EDT) HIV-1/2 ANTIGEN AND ANTIBODIES, 4TH GENERATION W/ REFLEX NON-REACT RADHA NON-REACT RADHA [facility] Comment: HIV-1 antigen and HIV-1/HIV-2 [...] purpose. For additional information please refer to http://JustFoodForDogs.ScalIT/faq/RXK407 (This link is being provided for informational/ educational purposes only.) The performance of this assay has not been clinically validated in patients less than 2 years old. 07/24/2021 10:1 1 AM EDT us Shon Darling MD LAB BLOOD ORDERABLES Final Resul t Performing Organization Address [facility] de Phone Number [facility] [address] [place] [address], * THINPREP TIS PAP (02/12/2021 11:21 AM [...] has been evaluated with computer assisted technology. [facility] [employer] : SEE COMMENT [facility] Comment: MXD, CT (ASCP) CT screening location: [place] [address] Interpretation/R esult: Negative for intraepithelial lesion or malignancy. [facility] LMP: NONE GIVEN [facility] Prev. BX: NONE [facility]IVEN [facility] Prev. PAP: NONE GIVEN [facility] SOURCE: None given [facility] Statement Of Adequacy: SEE COMMENT [facility] Comment: Satisfactory for evaluation. Endocervical/transformation zone component present. Age and/or menstrual status not provided 02/12/2021 11:2 1 AM EDT Vidya [facility] LAB PATHOLOGY ORDERABLES Final Result Performing Organization Address [facility] Co de Phone Number [facility] [address] [place] [address], * HPV mRNA E6/E7 (02/12/2021 11:21 AM EDT) HPV nRNA E6/E7 Not Detected Not Detected [facility] Comment: Methodology: Automation Tester-Mediated Amplification This assay detects E6/E7 viral messenger RNA (mRNA) from 14 high-risk HPV types (16,18,31,33,35,39,45,51,52,56,58,59,66,68). The analytical performance characteristics of this assay have been determined by [employer]. The modifications have not been cleared or approved by the FDA. This assay has been validated pursuant to the CLIA regulations and is used for clinical purposes. For additional information, please refer to http://education.ScalIT/faq/MAS588u8 (This link if provided for information/ educational purposes only.) 02/12/2021 11:2 1 AM EDT us Vidya [facility] LAB BLOOD ORDERABLES Lizzy leigh Result [facility] [address] from Last 3 Months or Most Recently Relevant to Health Maintenance Insurance [facility] STANDARD [facility] MEDICARE ADVANTAGE HMO [place] STAND AD[place] Care Teams Auto Body Estimator Relationship Specialty Start Date End Date Name, MD Shon [address] [place] [address] PCP - General Family Medicine 07/03/15
--- OUTSIDE RECORDS SUMMARY | 2025-02-28 18:23 | XMS_ITS | Encounter Summary ---
Author Organization [employer] Address [address] [facility] 7t [place] [address] Care Team Providers Care Hoop Driving Machine Operator Helper Name Role Phone Name, Shon HERNÁNDEZ Primary Care Provider [phone] Reason for Visit * Reason Onset Date Comments Referral 07/27/2022 Encounter Details Date Type Department Care Team ([facility] st Contact Info) Description 07/27/2022 Telephone [facility] [address] [place], [place] [phone] Name, MD Shon [address] [place] [address] Referral Social History Tobacco Use Types Packs/Day [...] AM EDT T/C placed to pt via [employer] Textile Machine Mechanic Lo #[id number]. Pt states she is requesting eye care [...] the vision center. Please contact pt at [phone] documented in this encounter Plan of Treatment Upcoming Encounters Date Type Department Care Team (Late st Contact Info) Description 03/21/2025 10:00 AM EST Clinical Support [facility] [address] [place] [address] Kassidy Watson RN documented as of this encounter Visit Diagnoses Diagnosis Blurred vision, bilateral- Primary Other specified visual disturbances documented in this encounter Care Teams Hoop Driving Machine Operator Helper Relationship Specialty Start Date End Date Name, MD Shon [address] [place] [address] PCP - General Family Medicine 07/03/15 documented as of this encounter
--- OUTSIDE RECORDS SUMMARY | 2025-02-28 18:23 | XMS_ITS | Encounter Summary ---
Author Organization [employer] Address [address] [facility] [address] [place] [address] Care Team Providers Care Lockstitch Collar Setter Name Role Phone Name, Shon HERNÁNDEZ Primary Care Provider [phone] Reason for Visit * Reason Comments Med Refill Encounter Details Date Type Department Care Team ([facility] st Contact Info) Description 03/16/2024 Refill [facility] [address] [place], [place] [phone] Name, MD Shon [address] [place], [place] [phone] Bipolar I disorder ([facility]) Social History Tobacco [...] Description 03/21/2025 10:00 AM EST Clinical Support [facility] [address] [place] [address] Kassidy Watson RN documented as of this encounter Visit Diagnoses Diagnosis Bipolar I disorder (CMS/HCC) (HCC) Bipolar I disorder, most recent episode (or current) unspecified documented in this encounter Additional Health Concerns Assessment Noted Time PHQ-9 Depression Total Score: 6 08/19/19 23 11:30 AM EDT documented as of this encounter Care Teams Lockstitch Collar Setter Relationship Specialty Start Date End Date Name, MD Shon [address] [place] [address] PCP - General Family Medicine 07/03/15 documented as of this encounter
--- OUTSIDE RECORDS SUMMARY | 2025-02-28 18:23 | XMS_ITS | Encounter Summary ---
Author Organization [employer] Address 75 [facility] 7t [place] [address] Care Team Providers Care Stone Unloader Name Role Phone Name, Shon HERNÁNDEZ Primary Care Provider [phone] Reason for Visit * Reason Onset Date Comments Med Refill 02/28/2025 Abnormal UTOX 02/28/2025 Encounter Details Date Type Department Care Team (Late st Contact Info) Description 02/28/2025 Refill [facility] [address] [place] [address] Kassidy Watson, MARY JANE Bipolar I disorder (CMS/HCC) ([facility]) Social History Tobacco Use Types Packs/Day Years [...] Telephone Encounter - Kassidy Watson RN - 02/28/2025 10:09 AM EDT Pt had JELLY FILTER TENDER RV appointment today UTOX was Pos BZO and MTD, sent out for MTD confirmation. Pt has had multiple UTOX Pos MTD, confirmations have all come back negative. documented in this encounter Plan of Treatment Upcoming Encounters Date Type Department Care Team (Late st Contact Info) Description 03/21/2025 10:00 AM EST Clinical Support [facility] [address] [place] [address] Kassidy Watson, RN documented as of this encounter Visit Diagnoses Diagnosis Bipolar I disorder (CMS/HCC) (HCC) Bipolar I disorder, most recent episode (or current) unspecified documented in this encounter Additional Health Concerns Assessment Noted Time PHQ-9 Depression Total Score: 2 09/04/19 25 11:56 AM EDT documented as of this encounter Care Teams Stone Unloader Relationship Specialty Start Date End Date Name, MD Shon [address] [place] [address] PCP - General Family Medicine 07/03/15 documented as of this encounter
--- OUTSIDE RECORDS SUMMARY | 2025-02-28 18:23 | XMS_ITS | Encounter Summary ---
Author Organization [employer] Address 75 [facility] 7t [place] [address] Care Team Providers Care Fuel Storage Technician Name Role Phone Name, Shon HERNÁNDEZ Primary Care Provider [phone] Reason for Visit * Reason Comments Med Refill Encounter Details Date Type Department Care Team ([facility] st Contact Info) Description 07/09/2024 Refill [facility] [address] [place], [place] [phone] Name, MD Shon [address] [place], [place] [phone] Bipolar I disorder ([facility]) Social History Tobacco Use Types [...] or control worrying 3 07/10/2024 1:03 PM RONYT Jovi Malone Worrying too much about different things 2 07/10/2024 1:03 PM EDJovi Todd Trouble relaxing 2 07/10/2024 1:03 PM EDT Jovi Kaplan Being so restless that it is hard to sit still 1 07/10/2024 1:03 PM Jovi Gan Becoming easily annoyed or irritable 1 07/10/2024 1:03 PM EDT Jovi Malone Feeling afraid as if something awful might happen 2 07/10/2024 1:03 PM Jovi Byers KATY-7 Total Score 14 07/10/2024 1:03 PM Jovi Gan documented as of this encounter Plan of Treatment Upcoming Encounters Date Type Department Care Team (Late st Contact Info) Description 03/21/2025 10:00 AM EST Clinical Support [address] [address] Kassidy Watson, RN documented as of this encounter Visit Diagnoses Diagnosis Bipolar I disorder (CMS/HCC) (HCC) Bipolar I disorder, most recent episode (or current) unspecified documented in this encounter Additional Health Concerns Assessment Noted Time PHQ-9 Depression Total Score: 6 08/19/19 23 11:30 AM EDT documented as of this encounter Care Teams Fuel Storage Technician Relationship Specialty Start Date End Date Name, MD Shon [address] [place] [address] PCP - General Family Medicine 07/03/15 documented as of this encounter
--- OUTSIDE RECORDS SUMMARY | 2025-02-28 18:23 | XMS_ITS | Encounter Summary ---
Author Organization [employer] Address 75 [facility] 7t [place] [address] Care Team Providers Care Clinical Evaluator Name Role Phone Name, Shon HERNÁNDEZ Primary Care Provider [phone] Encounter Details Date Type Department Care Team (Late st Contact Info) Description 09/28/2024 Orders Only [facility] [address] [place], [place] [phone] Provider, MD Dashawn Social History Tobacco Use [...] Description 03/21/2025 10:00 AM EST Clinical Support [facility] [address] [place] [address] Kassidy Watson RN documented as of this [...] documented as of this encounter Care Teams Clinical Evaluator Relationship Specialty Start Date End Date Name, MD Shon [address] [place] [address] PCP - General Family Medicine 07/03/15 documented as of this encounter
--- OUTSIDE RECORDS SUMMARY | 2025-02-28 18:23 | XMS_ITS | Encounter Summary ---
Author Organization [employer] Address [address] [place] [address] 7t [place] [address] Care Team Providers Care Data Processing Systems Project Planner Name Role Phone Name, Shon HERNÁNDEZ Primary Care Provider Encounter Details Date Type Department Care Team (Latest Contact Info) Description 03/21/2020 Abstract [facility] CONVERSIONS Dental, Provider, DDS Social History Tobacco [...] Clinical Support [facility] [address] [place] [address] Kassidy Watson, RN documented as of this encounter Visit Diagnoses Not on filedocumented in this encounter Care Teams Data Processing Systems Project Planner Relationship Specialty Start Date End Date Name, MD Shon [address] [place] [address] PCP - General Family Medicine 07/03/15 documented as of this encounter
--- OUTSIDE RECORDS SUMMARY | 2025-02-28 18:23 | XMS_ITS | Encounter Summary ---
Author Organization [employer] Address [address] [facility] [address] 7t [place] [address] Care Team Providers Care Tinning Equipment Tender Name Role Phone Name, Shon HERNÁNDEZ Primary Care Provider [phone] Encounter Details Date Type Department Care Team (Latest Contact Info) Description 02/28/2025 Travel Social History Tobacco Use Types Packs/Day [...] Description 03/21/2025 10:00 AM EST Clinical Support [facility] [address] [place] [address] Kassidy Watson RN documented as of this encounter Visit Diagnoses Not on filedocumented in this encounter Additional Health Concerns Assessment Noted Time PHQ-9 Depression Total Score: 2 09/04/19 25 11:56 AM EDT documented as of this encounter Care Teams Tinning Equipment Tender Relationship Specialty Start Date End Date Name, MD Shon [address] [place] [address] PCP - General Family Medicine 07/03/15 documented as of this encounter
--- OUTSIDE RECORDS SUMMARY | 2025-02-28 18:23 | XMS_ITS | Encounter Summary ---
Author Organization [employer] Address 75 [facility] 7t [place] [address] Care Team Providers Care Animal Services Officer Name Role Phone Name, Shon HERNÁNDEZ Primary Care Provider [phone] Reason for Visit * Reason Onset Date Comments Med Refill 03/08/2023 Encounter Details Date Type Department Care Team ([facility] st Contact Info) Description 03/08/2023 Telephone [facility] MEDICINE [address] [place], [place] [phone] Name, MD Shon [address] [place], [place] [phone] Med Refill Social History Tobacco Use Types [...] 1 MG tablet to be sent to [facility] pharmacy documented in this encounter Plan of Treatment Upcoming Encounters Date Type Department Care Team (Late st Contact Info) Description 03/21/2025 10:00 AM EST Clinical Support [facility] MEDICINE [address] [place] [address] Kassidy Watson, MARY JANE documented as of this encounter Visit Diagnoses Not on filedocumented in this encounter Additional Health Concerns Assessment Noted Time PHQ-9 Depression Total Score: 6 08/19/19 23 11:30 AM EDT documented as of this encounter Care Teams Animal Services Officer Relationship Specialty Start Date End Date Name, MD Shon [address] [place] [address] PCP - General Family Medicine 07/03/15 documented as of this encounter
--- OUTSIDE RECORDS SUMMARY | 2025-02-28 18:23 | XMS_ITS | Encounter Summary ---
Author Organization [employer] Address [address] [place] [address] 7t [place] [address] Care Team Providers Care Equipment Hire Manager Name Role Phone Name, Shon HERNÁNDEZ Primary Care Provider [phone] Encounter Details Date Type Department Care Team (Latest Contact Info) Description 09/03/2021 Abstract [facility] CONVERSIONS Dental, Provider, DDS Social History [...] Description 03/21/2025 10:00 AM EST Clinical Support [facility] MEDICINE [address] [place] [address] Kassidy Watson, RN documented as of this encounter Visit Diagnoses Not on filedocumented in this encounter Care Teams Equipment Hire Manager Relationship Specialty Start Date End Date Name, MD Shon [address] [place] [address] PCP - General Family Medicine 07/03/15 documented as of this encounter
== END 2025-02-28 16:59 | disposition home or self-care (01) ==
LOC: HO.LNP 16:58
PROVIDERS: Visit Provider Internal Medicine Geriatric Medicine
DX: Z79.899 Other long term (current) drug therapy (principal)
CPT/HCPCS: 80307

== ENCOUNTER 2025-03-21 18:15 | Outpatient (REF) | payer MEDICARE, MEDICAID, SELFPAY ==
--- OUTSIDE RECORDS SUMMARY | 2025-03-21 10:00 | XMS_ITS | Encounter Summary ---
Author Organization [employer] Address 75 [facility] 7t [place] [address] Care Team Providers Care Clothing Sorter Name Role Phone Name, Shon HERNÁNDEZ Primary Care Provider [phone] Reason for Visit * Reason Comments PATROL JUDGE RV Encounter Details Date Type Department Care Team (Latest Contact Info) Description 03/21/2025 10:00 AM EST Clinical Support [facility] 230 [place] [address] Kassidy Watson RN Long-term current use of [...] past 12 months, has t he electric, [employer], oil or water company threatened to shut [...] Progress Notes * Kassidy Watson RN - 03/21/2025 10:00 AM EST SUBJECTIVE: Peyton Juarez is a 59 y.o. year old female who presents for PATROL JUDGE RV Preferred language for medical information: Romanian Interpreted needed: Yes Out Of Town Collection Clerk service utilized: [employer] Out Of Town Collection Clerk I.D #: [id number] Peyton Juarez does report adherence to Clonazepam (Klonopin) 1 mg, take 1 tablet every 8 hours PRN, last refilled 03/05/2025. Pt stated she usually only uses 2 doses a day. The patient last took Clonazepam (Klonopin) on: 03/20/2025 Medication effective: Yes Sleep habits: No issues Therapist: Yes OBJECTIVE: CRANKSHAFT BALANCER checked: 03/21/2025 Pill count completed for Clonazepam (Klonopin), count today is 48 , anticipated count should be 35,this is as expected. Last PCP visit: 12/17/2024 KATY-7 Total Score: 20 (11/22/2024 9:32 AM) Controlled substance agreement signed: Controlled Substance Agreement 11/22/2024 PATROL JUDGE Tier: 1 Current Medications[1] Smoking status: Denies ETOH use: Denies Illicit substances: Denies Marijuana use: Denies Lab Results Component Value Date POCTHC Negative 03/21/2025 POCCOCAINEUR Negative 03/21/2025 POCOPIATEUR Negative 03/21/2025 DOAUR Negative 03/21/2025 POCAMPHETAMI Negative 03/21/2025 POCBENZODIUR Negative 03/21/2025 POCBARBSCRN Negative 03/21/2025 POCMETHADOUR Positive (A) 03/21/2025 POCBUPSCRN Negative 03/21/2025 POCTCAUR Positive (A) 03/21/2025 POCMDMAUR Negative 03/21/2025 POCOXYCODONE Negative 03/21/2025 POCPHENCYCUR Positive (A) 03/21/2025 PROPOXUR Negative 03/21/2025 FENTANYLURIN Negative 03/21/2025 Reviewed UTOX results. Explained I would send urine out for MTD, PCP and BZO confirmation and call her if the results are abnormal. ASSESSMENT: Encounter Diagnosis Name Primary? Long-term current use of benzodiazepine Yes PLAN: Information on acupuncture given: Previously discussed Narcan education provided: Previously discussed Narcan prescription: active Will update PCP with UTOX results. Peyton Juarez will continue taking medication as prescribed and follow up at the next PATROL JUDGE visit or sooner if needed. Peyton Juarez has verbalized understanding of care plan. Future Appointments Date Time Provider Department Center 05/01/2025 9:30 AM Kassidy Watson RN [facility] Kassidy Watson RN [1] Current Outpatient Medications: clonazePAM (KlonoPIN) 1 MG tablet, TAKE 1 TABLET BY MOUTH THREE TIMES DAILY IN THE MORNING, AT NOON, AND AT BEDTIME. Do not start before March 01, 2025., Disp: 84 tablet, Rfl: 0 Accu-Chek Softclix Lancets lancets, [...] kit, Rfl: 0 Blood Glucose Monitoring Suppl ([employer] Verio) w/Device kit, TEST BLOOD SUGAR ONCE [...] Disp: , Rfl: Lancets (OneTouch Delica Plus [id number]) misc, TEST BLOOD SUGAR ONCE DAILY, Disp: [...] Care Team (Late st Contact Info) Description 05/01/2025 9:30 AM EST Clinical Support [address] [address] Kassidy Watson RN Scheduled Orders Name Type Priority Associated Diagnoses Orde r Schedule Drug Monitoring, Benzodiazepines, Quantitative, Urine Lab Routine Long-term current use of benzodiazepine Ordered: 03/21/2025 documented as of this encounter Goals Goal Patient Goal Type Associated Problems Recent Progress Patient-Stated? Author Help patients manage their type 2 diabetes Care Plan Help patients manage their type 2 diabetes Kassidy Archer RN Weekly blood pressure task Care Plan Weekly blood pressure task Kassidy Archer RN Help patients manage their type 2 diabetes Care Plan Help patients manage their type 2 diabetes Kassidy Archer RN Patient has chronic kidney disease Care Plan Patient has chronic kidney disease Kassidy Archer RN Weekly blood pressure task Care Plan Weekly blood pressure task Kassidy Archer RN Patient has chronic kidney disease Care Plan Patient has chronic kidney disease Kassidy Archer RN Weekly blood pressure task Care Plan Weekly blood pressure task Kassidy Archer RN Weekly blood pressure task Care Plan Weekly blood pressure task Kassidy Archer RN Patient has chronic kidney disease Care Plan Patient has chronic kidney disease Kassidy Archer RN Patient has chronic kidney disease Care Plan Patient has chronic kidney disease Kassidy Archer RN documented as of this encounter Procedures Procedure Name Priority Date/Time Associated Diagnosis Comments POCT MARGE-14 URINE DRUG SCREEN Routine 03/21/2025 11:28 AM EST Long-term current use of benzodiazepine PHENCYCLIDINE SCREEN, URINE Routine 03/21/2025 12:00 AM EST Long-term current use of benzodiazepine METHADONE SCREEN, URINE Routine 03/21/2025 12:00 AM EST Long-term current use of benzodiazepine documented in this encounter Results * (ABNORMAL) POCT MARGE-14 Urine Drug Screen (03/21/2025 11:28 AM EST) THC Negative Negative Cocaine Screen, Urine Negative Negative Opiate Screen, Urine Negative Negative Methamphetamine Screen Urine Negative Negative Amphetamine Screen, Urine Negative Negative Benzodiazepines Screen, Urine Negative Negative Comment:PATROL JUDGE pt on Clonazepam Barbiturate Screen, Urine Negative Negative Methadone Screen, Urine Positive(A) Negative Buprenophine Screen, Urine Negative Negative TCA, Urine Positive(A) Negative MDMA Urine Negative Negative ng/mL Oxycodone Screen, Urine Negative Negative Phencyclidine (PCP), Urine Positive(A) Negative Propoxyphene, Urine Negative Negative Fentanyl, Urine Negative Negative Urine Urine specimen obtained by clean catch procedure / Unknown 03/21/2025 11:28 AM EST Narrative Kassidy Watson RN - 03/21/2025 11:28 AM EST UTOX cup Lot#[id number] Exp. 04/01/26 Internal Pass Control us Shon Darling MD POINT OF CARE TEST ENTER/EDIT OR DERABLES Final Result * Phencyclidine Screen, Urine (03/21/2025 12:00 AM EST) Phencyclidine Screen Urine Not Detected Not Detect [facility] Comment:Phencyclidine cut-of f is 25 ng/mL.Positive results are unconfirmed and should not be used fornon-medical purposes. Urine 03/21/2025 03/21/2025 us Shon Darling MD LAB URINE ORDERABLES Final Resul t Performing Organization Address [facility] Co de Phone Number [facility] [address] [place] [phone] * Drug Monitoring, Methadone Metabolite, Screen, Urine (03/21/2025 12:00 AM EST) Methadone Screen, Urine Not Detected Not Detect ng/mL [facility] Comment:Methadone cut-off is 300 ng/mL.Positive results are unconfirmed and should not be used fornon-medical purposes. Urine 03/21/2025 03/21/2025 us Shon Darling MD LAB URINE ORDERABLES Final Resul t Performing Organization Address [facility] Co de Phone Number [facility] [address] [place] [phone] documented in this encounter Visit Diagnoses Diagnosis Long-term current use of benzodiazepine- Primary documented in this encounter Additional Health Concerns Active Problems Noted Date Diagnosed Date Help patients manage their type 2 diabetes 03/21 Weekly blood pressure task 03/21/2025 Help patients manage their type 2 diabetes 03/21 Patient has chronic kidney disease 03/21/2025 Weekly blood pressure task 03/21/2025 Patient has chronic kidney disease 03/21/2025 Weekly blood pressure task 03/21/2025 Weekly blood pressure task 03/21/2025 Patient has chronic kidney disease 03/21/2025 Patient has chronic kidney disease 03/21/2025 Assessment Noted Time PHQ-9 Depression Total Score: 2 09/04/19 25 11:56 AM EDT documented as of this encounter Care Teams Clothing Sorter Relationship Specialty Start Date End Date Name, MD Shon [address] [place] [address] PCP - General Family Medicine 07/03/15 documented as of this encounter
--- OUTSIDE RECORDS SUMMARY | 2025-03-21 21:03 | XMS_ITS | Encounter Summary ---
Author Organization [employer] Address 75 [facility] 7t [place] [address] Care Team Providers Care Screen Stretcher Name Role Phone Name, Shon HERNÁNDEZ Primary Care Provider [phone] Reason for Visit * Reason Onset Date Comments A1C 04/12/2023 Encounter Details Date Type Department Care Team ([facility] st Contact Info) Description 04/12/2023 Telephone [facility] MEDICINE [address] [place], [place] [phone] Name, MD Shon [address] [place] [address] A1C Social History Tobacco Use Types Packs/Day [...] 2:00 PM EST T/C to pt. Through [employer] id - [id number] for below message, pt., schedule for apt. [...] going to be sick) ,and general weakness. [facility] hours are reviewed. Pt. verbally agreed and understood. * Telephone Encounter - Tere Gracia - 04/12/2023 12:15 PM EST TC from JOSE Ayoub calling on behalf of her last visit with pt and states pt AC1 came back as a result on 7.0. Please if any questions please contact Jose @ [phone] documented in this encounter Plan of Treatment Upcoming Encounters Date Type Department Care Team (Late st Contact Info) Description 05/01/2025 9:30 AM EST Clinical Support [facility] MEDICINE [address] [place] [address] Kassidy Watson, RN documented as of this encounter Visit Diagnoses Not on filedocumented in this encounter Additional Health Concerns Assessment Noted Time PHQ-9 Depression Total Score: 6 08/19/19 23 11:30 AM EDT documented as of this encounter Care Teams Screen Stretcher Relationship Specialty Start Date End Date Name, MD Shon [address] [place] [address] PCP - General Family Medicine 07/03/15 documented as of this encounter
--- OUTSIDE RECORDS SUMMARY | 2025-03-21 21:03 | XMS_ITS | Encounter Summary ---
Author Organization [employer] Address 75 [facility] 7t [place] [address] Care Team Providers Care Commercial Account Officer Name Role Phone Name, Shon HERNÁNDEZ Primary Care Provider [phone] Encounter Details Date Type Department Care Team ([facility] Contact Info) Description 03/12/2025 Telephone [facility] MEDICINE [address] [place], [place] [phone] Name, MD Shon [address] [place] [address] Social History Tobacco Use Types Packs/Day Years [...] Description 05/01/2025 9:30 AM EST Clinical Support [facility] [address] [place] [address] Kassidy Watson RN documented as of this encounter Visit Diagnoses Not on filedocumented in this encounter Additional Health Concerns Assessment Noted Time PHQ-9 Depression Total Score: 2 09/04/19 25 11:56 AM EDT documented as of this encounter Care Teams Commercial Account Officer Relationship Specialty Start Date End Date Name, MD Shon [address] [place] [address] PCP - General Family Medicine 07/03/15 documented as of this encounter
--- OUTSIDE RECORDS SUMMARY | 2025-03-21 21:03 | XMS_ITS | Encounter Summary ---
Author Organization [employer] Address 75 [facility] 7t [place] [address] Care Team Providers Care Regional Intermodal Truck Driver Name Role Phone Name, Shon HERNÁNDEZ Primary Care Provider [phone] Reason for Visit * Reason Comments Med Refill Encounter Details Date Type Department Care Team ([facility] st Contact Info) Description 12/22/2023 Refill [facility] MEDICINE [address] [place], [place] [phone] Name, MD Shon [address] [place], [place] [phone] Bipolar I disorder ([facility] [...] Description 05/01/2025 9:30 AM EST Clinical Support [facility] MEDICINE [address] [place] [address] Kassidy Watson RN documented as of this encounter Visit Diagnoses Diagnosis Bipolar I disorder (CMS/HCC) (HCC) Bipolar I disorder, most recent episode (or current) unspecified documented in this encounter Additional Health Concerns Assessment Noted Time PHQ-9 Depression Total Score: 6 08/19/19 23 11:30 AM EDT documented as of this encounter Care Teams Regional Intermodal Truck Driver Relationship Specialty Start Date End Date Name, MD Shon [address] [place] [address] PCP - General Family Medicine 07/03/15 documented as of this encounter
--- OUTSIDE RECORDS SUMMARY | 2025-03-21 21:03 | XMS_ITS | Encounter Summary ---
Author Organization [employer] Address 75 [facility] 7t [place] [address] Care Team Providers Care Press Assistant Name Role Phone Name, Shon HERNÁNDEZ Primary Care Provider [phone] Reason for Visit * Reason Onset Date Comments Med Refill 11/01/2023 Encounter Details Date Type Department Care Team ([facility] st Contact Info) Description 11/01/2023 Telephone [facility] MEDICINE [address] [place], [place] [phone] Name, MD Shon [address] [place], [place] [phone] Med Refill Social History Tobacco Use Types [...] - 11/01/2023 12:01 PM EDT Spoke with [facility] pharmacy. Clonazepam RX sent 10/26/23 has not been delivered yet and is being delivered tomorrow. Pt was made aware by pharmacy. * Telephone Encounter - Cindy Chong - 11/01/2023 11:28 AM EDT TC from pt requesting medication refill. Medications needing refill : clonazePAM (KlonoPIN) 1 MG tablet To be sent to: [facility] [place] [place] - [address] [place] [address] documented in this encounter Plan of Treatment Upcoming Encounters Date Type Department Care Team (Late st Contact Info) Description 05/01/2025 9:30 AM EST Clinical Support [facility] MEDICINE [address] [place] [address] Kassidy Watson, RN documented as of this encounter Visit Diagnoses Diagnosis Bipolar I disorder (CMS/HCC) (HCC) Bipolar I disorder, most recent episode (or current) unspecified documented in this encounter Additional Health Concerns Assessment Noted Time PHQ-9 Depression Total Score: 6 08/19/19 23 11:30 AM EDT documented as of this encounter Care Teams Press Assistant Relationship Specialty Start Date End Date Name, MD Shon [address] [place] [address] PCP - General Family Medicine 07/03/15 documented as of this encounter
--- OUTSIDE RECORDS SUMMARY | 2025-03-21 21:03 | XMS_ITS | Encounter Summary ---
Author Organization [employer] Address [address] [facility] 7t [place] [address] Care Team Providers Care Sanitor Name Role Phone Name, Shon HERNÁNDEZ Primary Care Provider [phone] Reason for Visit * Reason Comments Med Refill Encounter Details Date Type Department Care Team ([facility] st Contact Info) Description 03/16/2024 Refill [facility] MEDICINE [address] [place], [place] [phone] Name, MD Shon [address] [place], [place] [phone] Bipolar I disorder ([facility]) Social History Tobacco Use Types Packs/Day [...] Description 05/01/2025 9:30 AM EST Clinical Support [facility] MEDICINE [address] [place] [address] Kassidy Watson RN documented as of this encounter Visit Diagnoses Diagnosis Bipolar I disorder (CMS/HCC) (HCC) Bipolar I disorder, most recent episode (or current) unspecified documented in this encounter Additional Health Concerns Assessment Noted Time PHQ-9 Depression Total Score: 6 08/19/19 23 11:30 AM EDT documented as of this encounter Care Teams Sanitor Relationship Specialty Start Date End Date Name, MD Shon [address] [place] [address] PCP - General Family Medicine 07/03/15 documented as of this encounter
--- OUTSIDE RECORDS SUMMARY | 2025-03-21 21:03 | XMS_ITS | Encounter Summary ---
Author Organization [employer] Address [address] 7[address] [place] [address] Care Team Providers Care Associate Partner Name Role Phone Name, Shon HERNÁNDEZ Primary Care Provider [phone] Encounter Details Date Type Department Care Team (Latest Contact Info) Description 03/21/2025 Travel Social History Tobacco Use Types Packs/Day [...] Description 05/01/2025 9:30 AM EST Clinical Support [facility] MEDICINE [address] [place] [address] Kassidy Watson RN documented as of this encounter Goals Goal Patient Goal Type Associated Problems Recent Progress Patient-Stated? Author Help patients manage their type 2 diabetes Care Plan Help patients manage their type 2 diabetes No Kassidy Watson RN Weekly blood pressure task Care Plan Weekly blood pressure task No Kassidy Watson RN Help patients manage their type 2 diabetes Care Plan Help patients manage their type 2 diabetes No Kassidy Watson RN Patient has chronic kidney disease Care Plan Patient has chronic kidney disease No Kassidy Watson RN Weekly blood pressure task Care Plan Weekly blood pressure task No Kassidy Watson RN Patient has chronic kidney disease Care Plan Patient has chronic kidney disease Kassidy Archer RN Weekly blood pressure task Care Plan Weekly blood pressure task No Kassidy Watson RN Weekly blood pressure task Care Plan Weekly blood pressure task No Kassidy Watson RN Patient has chronic kidney disease Care Plan Patient has chronic kidney disease Kassidy Archer RN Patient has chronic kidney disease Care Plan Patient has chronic kidney disease No Kassidy Watson RN documented as of this encounter Visit Diagnoses Not on filedocumented in this encounter Additional Health Concerns Active [...] documented as of this encounter Care Teams Associate Partner Relationship Specialty Start Date End Date Name, MD Shon [address] [place] [address] PCP - General Family Medicine 07/03/15 documented as of this encounter
--- OUTSIDE RECORDS SUMMARY | 2025-03-21 21:03 | XMS_ITS | Encounter Summary ---
Author Organization [employer] Address [address] [facility] 7t [place] [address] Care Team Providers Care Associate Financial Representative Name Role Phone Name, Shon HERNÁNDEZ Primary Care Provider [phone] Reason for Visit * Reason Onset Date Comments Abnormal UTOX 03/21/2025 Encounter Details Date Type Department Care Team ([facility] st Contact Info) Description 03/21/2025 Telephone [facility] MEDICINE [address] [place], [place] [phone] Kassidy Watson RN Abnormal UTOX Social History Tobacco Use Types Packs/Day Years [...] is your housing situation today? I have phillymer[facility] saunders 09/03/[address] [...] t he electric, gas, oil or water Wantr threatened to shut off services in your [...] Telephone Encounter - Kassidy Watson RN - 03/21/2025 11:31 AM EST Pt had LINE MECH[employer] RV today UTOX was Pos MTD & PCP, Neg BZO Sent out for confirmation documented in this encounter Plan of Treatment Upcoming Encounters Date Type Department Care Team (Late st Contact Info) Description 05/01/2025 9:30 AM EST Clinical Support [facility] MEDICINE [address] [place] [phone] Kassidy Watson RN documented as of this [...] as of this encounter Care Teams Associate Financial Representative Relationship Specialty Start Date End Date Name, MD Shon [address] [place] [address] PCP - General Family Medicine 07/03/15 documented as of this encounter
--- OUTSIDE RECORDS SUMMARY | 2025-03-21 21:04 | XMS_ITS | Encounter Summary ---
Author Organization [employer] Address [address] [facility] 7t [place] [address] Care Team Providers Care Station Engineer Name Role Phone Name, Shon HERNÁNDEZ Primary Care Provider [phone] Reason for Visit * Reason Comments Med Refill Encounter Details Date Type Department Care Team ([facility] st Contact Info) Description 03/02/2023 Refill [facility] MEDICINE [address] [place], [place] [phone] Name, MD Shon [address] [place], [place] [phone] Bipolar I disorder ([facility]) [...] Description 05/01/2025 9:30 AM EST Clinical Support [facility] MEDICINE [address] [place] [address] Kassidy Watson RN documented as of this encounter Visit Diagnoses Diagnosis Bipolar I disorder (CMS/HCC) (HCC) Bipolar I disorder, most recent episode (or current) unspecified documented in this encounter Additional Health Concerns Assessment Noted Time PHQ-9 Depression Total Score: 6 08/19/19 23 11:30 AM EDT documented as of this encounter Care Teams Station Engineer Relationship Specialty Start Date End Date Name, MD Shon [address] [place] [address] PCP - General Family Medicine 07/03/15 documented as of this encounter
--- OUTSIDE RECORDS SUMMARY | 2025-03-21 21:04 | XMS_ITS | Encounter Summary ---
Author Organization [employer] Address [address] [facility] 7t [place] [address] Care Team Providers Care Level Glass Vial Filler Name Role Phone Name, Shon HERNÁNDEZ Primary Care Provider [phone] Reason for Visit * Reason Comments Med Refill Encounter Details Date Type Department Care Team ([facility] st Contact Info) Description 07/09/2024 Refill [facility] [address] [place], [place] [phone] Name, MD Shon [address] [place], [place] [phone] Bipolar I disorder ([facility]) Social History Tobacco Use Types [...] 4 07/10/2024 1:14 PM EDT Jovi Mata [facility] * Little interest or pleasure in doing things Answer Date of Assessment Author More than half the days 07/10/2024 1:14 PM EDT Jovi Kaplan [facility] * Feeling down, depressed, or hopeless Answer Date of Assessment Author More than half the days 07/10/2024 1:14 PM EDT Jovi Kaplan [facility] * Trouble falling or staying asleep, or sleeping too much Answer Date of Assessment Author Not at all 07/10/2024 1:14 PM EDT Jovi Rao [facility] * Feeling tired or having little energy Answer Date of Assessment Author Several days 07/10/2024 1:14 PM EDT Jovi Rao [facility] * Poor appetite or overeating Answer Date of Assessment Author Several days 07/10/2024 1:14 PM EDT Jovi Rao [facility] * Feeling bad about yourself - or that you are a failure or have let yourself or your family down Answer Date of Assessment Author Several days 07/10/2024 1:14 PM EDT Jovi Rao [facility] * Trouble concentrating on things, such as reading the newspaper or watching television Answer Date of Assessment Author Not at all 07/10/2024 1:14 PM EDT Jovi Rao [facility] * Moving or speaking so slowly that other people could have noticed? Or the opposite - being so fidgety or restless that you have been moving around a lot more than usual. Answer Date of Assessment Author Not at all 07/10/2024 1:14 PM EDT Jovi Rao [facility] * Thoughts that you would be better off or hurting yourself in some way Answer Date of Assessment Author Several days 07/10/2024 1:14 PM EDT Jovi Rao LM[facility] * Patient Health Questionnaire-9 Score Answer Date of Assessment Author 8 07/10/2024 1:14 PM EDT Jovi Rao LM[facility] * How difficult have these problems made it for you to do your work, take care of things at home, or get along with other people? Answer Date of Assessment Author Very difficult 07/10/2024 1:14 PM EDT Jovi Rao [facility] * Over the last 2 weeks, how often have you been bothered by any of the following problems? Question Answer Date of Assessment Author Feeling nervous, anxious, or on edge 3 07/10/2024 1:03 PM EDT Jovi Malone LM[facility] Not being able to stop or control worrying 3 07/10/2024 1:03 PM EDT Jovi Malone LM[facility] Worrying too much about different things 2 07/10/2024 1:03 PM EDT Jovi Malone LM[facility] Trouble relaxing 2 07/10/2024 1:03 PM EDT Jovi Kaplan LM[facility] Being so restless that it is hard to sit still 1 07/10/2024 1:03 PM EDT Jovi Malone LM[facility] Becoming easily annoyed or irritable 1 07/10/2024 1:03 PM EDT Jovi Malone LM[facility] Feeling afraid as if something awful might happen 2 07/10/2024 1:03 PM RONYT Jovi Velasquez LM[facility] KATY-7 Total Score 14 07/10/2024 1:03 PM EDT Jovi Malone, [facility] documented as of this encounter Plan of Treatment Upcoming Encounters Date Type Department Care Team (Late st Contact Info) Description 05/01/2025 9:30 AM EST Clinical Support [facility] [address] [facility] [place] [address] Kassidy Watson, RN documented as of this encounter Visit Diagnoses Diagnosis Bipolar I disorder (CMS/HCC) (HCC) Bipolar I disorder, most recent episode (or current) unspecified documented in this encounter Additional Health Concerns Assessment Noted Time PHQ-9 Depression Total Score: 6 08/19/19 23 11:30 AM EDT documented as of this encounter Care Teams Level Glass Vial Filler Relationship Specialty Start Date End Date Name, MD Shon [address] [place] [address] PCP - General Family Medicine 07/03/15 documented as of this encounter
--- OUTSIDE RECORDS SUMMARY | 2025-03-21 21:04 | XMS_ITS | Encounter Summary ---
Author Organization [employer] Address [address] [facility] 7t [place] [address] Care Team Providers Care Milk Tanker Driver Name Role Phone Name, Shon HERNÁNDEZ Primary Care Provider [phone] Reason for Visit * Reason Onset Date Comments Referral 07/27/2022 Encounter Details Date Type Department Care Team ([facility] st Contact Info) Description 07/27/2022 Telephone [facility] MEDICINE [address] [place], [place] [phone] Name, MD Shon [address] [place] [address] Referral Social History Tobacco Use Types Packs/Day [...] AM EDT T/C placed to pt via [employer] Overlock Sleeve Setter Lo #[id number]. Pt states she is requesting eye care [...] the vision center. Please contact pt at [phone] documented in this encounter Plan of Treatment Upcoming Encounters Date Type Department Care Team (Late st Contact Info) Description 05/01/2025 9:30 AM EST Clinical Support [facility] MEDICINE [address] [place] [phone] Kassidy Watson, MARY JANE documented as of this encounter Visit Diagnoses Diagnosis Blurred vision, bilateral- Primary Other specified visual disturbances documented in this encounter Care Teams Milk Tanker Driver Relationship Specialty Start Date End Date Name, MD Shon [address] [place] [address] PCP - General Family Medicine 07/03/15 documented as of this encounter
--- OUTSIDE RECORDS SUMMARY | 2025-03-21 21:04 | XMS_ITS | Encounter Summary ---
Author Organization [employer] Address [address] [place] [address] 7t [place] [address] Care Team Providers Care Insulation Machine Operator Name Role Phone Name, Shon HERNÁNDEZ Primary Care Provider [phone] Encounter Details Date Type Department Care Team (Latest Contact Info) Description 09/03/2021 Abstract [facility] CONVERSIONS Dental, Provider, DDS Social History [...] Description 05/01/2025 9:30 AM EST Clinical Support [facility] MEDICINE [address] [place] [address] Kassidy Watson, RN documented as of this encounter Visit Diagnoses Not on filedocumented in this encounter Care Teams Insulation Machine Operator Relationship Specialty Start Date End Date Name, MD Shon [address] [place] [address] PCP - General Family Medicine 07/03/15 documented as of this encounter
--- OUTSIDE RECORDS SUMMARY | 2025-03-21 21:04 | XMS_ITS | Encounter Summary ---
Author Organization [employer] Address [address] [place] [address] 7 [place] [address] Care Team Providers Care Ferry Boat Captain Name Role Phone Name, Shon HERNÁNDEZ Primary Care Provider [phone] Reason for Visit * Reason Comments Med Refill Encounter Details Date Type Department Care Team (Late st Contact Info) Description 12/16/2022 Refill [facility] [address] [place] [phone] Name, MD Shon [address] [place] [phone] Bipolar I disorder ([facility]) Social History Tobacco Use Types Packs/Day Years [...] Description 05/01/2025 9:30 AM EST Clinical Support [facility] [address] [place] [phone] Kassidy Watson, RN documented as of this encounter Visit Diagnoses Diagnosis Bipolar I disorder (CMS/HCC) (HCC) Bipolar I disorder, most recent episode (or current) unspecified documented in this encounter Additional Health Concerns Assessment Noted Time PHQ-9 Depression Total Score: 6 08/19/19 23 11:30 AM EDT documented as of this encounter Care Teams Ferry Boat Captain Relationship Specialty Start Date End Date Name, MD Shon [address] [place] [address] PCP - General Family Medicine 07/03/15 documented as of this encounter
--- OUTSIDE RECORDS SUMMARY | 2025-03-21 21:04 | XMS_ITS | Encounter Summary ---
Author Organization [employer] Address [address] [place] [address] 7 [place] [address] Care Team Providers Care Clinical Applications Specialist Name Role Phone Name, Shon HERNÁNDEZ Primary Care Provider [phone] Reason for Visit * Reason Comments Med Refill Encounter Details Date Type Department Care Team (Late st Contact Info) Description 10/11/2022 Refill [facility] [address] [place] [phone] Name, MD Shon [address] [place] [phone] Mood disorder (CMS/HCC) Social History Tobacco Use [...] Description 05/01/2025 9:30 AM EST Clinical Support [facility] [address] [place] [phone] Kassidy Watson RN documented as of this encounter Visit Diagnoses Diagnosis Mood disorder (CMS/HCC) Unspecified episodic mood disorder documented in this encounter Additional Health Concerns Assessment Noted Time PHQ-9 Depression Total Score: 6 08/19/19 23 11:30 AM EDT documented as of this encounter Care Teams Clinical Applications Specialist Relationship Specialty Start Date End Date Name, MD Shon [address] [place] [address] PCP - General Family Medicine 07/03/15 documented as of this encounter
--- OUTSIDE RECORDS SUMMARY | 2025-03-21 21:04 | XMS_ITS | Encounter Summary ---
Author Organization [employer] Address [address] [place] [address] 7t [place] [address] Care Team Providers Care Public School Teacher Name Role Phone Name, Shon HERNÁNDEZ Primary Care Provider [phone] Encounter Details Date Type Department Care Team (Late st Contact Info) Description 04/19/2022 Orders Only [facility] [address] [place] [address] Nidia Leon LPN Social History Tobacco Use [...] Description 05/01/2025 9:30 AM EST Clinical Support [facility] MEDICINE [address] [place] [address] Kassidy Watson, RN documented as of this encounter Visit Diagnoses Not on filedocumented in this encounter Care Teams Public School Teacher Relationship Specialty Start Date End Date Name, MD Shon [address] [place] [address] PCP - General Family Medicine 07/03/15 documented as of this encounter
--- OUTSIDE RECORDS SUMMARY | 2025-03-21 21:04 | XMS_ITS | Encounter Summary ---
Author Organization [employer] Address [address] [place] [address] 7t [place] [address] Care Team Providers Care Sharepoint Solutions Developer Name Role Phone Name, Shon HERNÁNDEZ Primary Care Provider [phone] Encounter Details Date Type Department Care Team (Latest Contact Info) Description 03/21/2020 Abstract [facility] CONVERSIONS Dental, Provider, DDS Social History [...] Description 05/01/2025 9:30 AM EST Clinical Support [facility] MEDICINE [address] [place] [address] Kassidy Watson, RN documented as of this encounter Visit Diagnoses Not on filedocumented in this encounter Care Teams Sharepoint Solutions Developer Relationship Specialty Start Date End Date Name, MD Shon [address] [place] [address] PCP - General Family Medicine 07/03/15 documented as of this encounter
--- OUTSIDE RECORDS SUMMARY | 2025-03-21 21:04 | XMS_ITS | Encounter Summary ---
Author Organization [employer] Address [address] [facility] 7t [place] [address] Care Team Providers Care Battery Loader Name Role Phone Name, Shon HERNÁNDEZ Primary Care Provider [phone] Reason for Visit * Reason Onset Date Comments Med Refill 03/08/2023 Encounter Details Date Type Department Care Team ([facility] st Contact Info) Description 03/08/2023 Telephone [facility] MEDICINE [address] [place], [place] [phone] Name, MD Shon [address] [place], [place] [phone] Med Refill Social History Tobacco Use Types [...] 1 MG tablet to be sent to [facility] pharmacy documented in this encounter Plan of Treatment Upcoming Encounters Date Type Department Care Team (Late st Contact Info) Description 05/01/2025 9:30 AM EST Clinical Support [facility] MEDICINE [address] [place] [address] Kassidy Watson, MARY JANE documented as of this encounter Visit Diagnoses Not on filedocumented in this encounter Additional Health Concerns Assessment Noted Time PHQ-9 Depression Total Score: 6 08/19/19 23 11:30 AM EDT documented as of this encounter Care Teams Battery Loader Relationship Specialty Start Date End Date Name, MD Shon [address] [place] [address] PCP - General Family Medicine 07/03/15 documented as of this encounter
--- OUTSIDE RECORDS SUMMARY | 2025-03-21 21:04 | XMS_ITS | Clinical Summary ---
Author Organization [employer] Address [address] [place] [address] [address] [place] [address] Care Team Providers Care Multimedia Developer Name Role Phone Name, Shon HERNÁNDEZ Primary Care Provider [phone] Allergies No known active allergies Medications * [...] 3 024 Active Blood Glucose Monitoring Suppl ([email or web address]or [employer]) w/Device kitIndications:Ne w onset type 2 diabetes mellitus (HCC) Use to check blood sugar by subcutaneous route once a day 1 kit 024 Active Lancets (OneTouch Delica) lancets 30GIndications:Ne w onset type 2 diabetes mellitus (HCC) 1 each by Other route Once daily. 100 each 3 024 Active Blood Glucose Monitoring Suppl ([employer]) w/Device kit TEST BLOOD SUGAR ONCE DAILY [...] 3 025 Active Lancets (OneTouch Delica Plus [id number]) [facility] TEST BLOOD SUGAR ONCE DAILY 100 each [...] MORNING AND AT BEDTIME 60 tablet 5 03/18/20 25 10:51 AM EST 025 Active mirtazapine (Remeron) 7.5 MG tablet TAKE 1 TABLET BY MOUTH AT BEDTIME 30 tablet 5 Active risperiDONE (RisperDAL) 2 MG tabletIndications :Mood disorder (CMS/HCC) TAKE 1 TABLET BY MOUTH AT BEDTIME 30 tablet 5 03/18/20 25 10:51 AM EST 025 Active melatonin 5 MG tabletIndications :Insomnia, unspecified type TAKE 1 TABLET BY MOUTH AT BEDTIME 30 tablet 2 Active metFORMIN (Glucophage) 500 MG tablet TAKE 1 TABLET BY MOUTH TWICE DAILY IN THE MORNING AND IN THE EVENING 60 tablet 5 Active Blood Glucose Monitoring Suppl (Accu-Chek Guide) w/Device kitIndications:Ty pe 2 diabetes mellitus treated without insulin ([facility]) Use to check blood sugar by finger stick once daily. 1 kit Active glucose blood (Accu-Chek Guide Test) test stripIndications: Type 2 diabetes mellitus treated without insulin ([facility]) Use to check blood sugar by finger stick once daily 100 each 11 Active Accu-Chek Softclix Lancets lancetsIndication s:Type 2 diabetes mellitus treated without insulin (HCC) Use as instructed to check blood sugar by finger stick once daily. 100 each 11 025 Active clonazePAM (KlonoPIN) 1 MG tabletIndications :Bipolar I disorder (CMS/HCC) ([facility]) TAKE 1 TABLET BY MOUTH THREE TIMES DAILY IN THE MORNING, AT NOON, AND AT BEDTIME. Do not start before March 01, 2025. 84 tablet 025 Active clonazePAM (KlonoPIN) 1 MG tabletIndications :Bipolar I disorder (CMS/HCC) ([facility]) TAKE 1 TABLET BY MOUTH THREE TIMES DAILY IN THE MORNING, AT NOON, AND AT BEDTIME 30 tablet 025 2024 Discontinued(R eorder (will not trigger notification [...] pharmacy Emphasized importance of attending f/u with [employer] for pill counts and Utox screening, message sent to [employer] RN to reschedule f/u Pt agreeable [...] gastroenterostomy and near esophagojejunostomy. She follows at [facility] for frequent endoscopies for surveillance, radiofrequency [...] 07/24/2015 12/21/2022 Knee pain 02/12/2013 09/03/2024 Encounters Date Type Department Care Team Description 03/21/2025 10:00 AM EST Clinical Support [facility] [address] [place] [phone] Kassidy Watson RN Long-term current use of benzodiazepine (Primary Dx) 03/21/2025 Telephone [facility] [address] [place] [address] Kassidy Watson RN Abnormal UTOX 03/21/2025 Travel 03/12/2025 Telephone [facility] [address] [place] [address] Shon Darling MD 03/04/2025 Telephone [facility] [address] [place] [address] Shon Darling MD Med Refill 02/28/2025 9:30 AM EDT Clinical Support [facility] [address] [place] [address] Kassidy Watson RN Long-term current use of benzodiazepine (Primary Dx) 02/28/2025 Refill [facility] [address] [place] [address] Kassidy Watson RN Bipolar I disorder ([facility]) (HCC) 02/28/2025 Travel 02/18/2025 Refill [facility] [address] [place] [address] Shon Darling MD Bipolar I disorder ([facility]) (HCC) 02/12/2025 Refill [facility] [address] [place] [phone] Shon Darling MD Type 2 diabetes mellitus treated without insulin ([facility]) (Primary Dx) 02/04/2025 Telephone [facility] [address] [place] [phone] Kassidy Watson RN [facility] [employer] RV today 02/04/2025 Refill [facility] [address] [place] [phone] Shon Darling MD Insomnia, unspecified type 01/05/[address] [facility] [address] [place], [place] [phone] Shon Darling MD Hypertension, unspecified type; Mood disorder ([facility]) 01/03/[address] [facility] [address] [place] [address] Shon Darling MD 01/01/2025 9:30 AM EDT Clinical Support [facility] [address] [place] [phone] Kassidy Watson RN Long-term current use of benzodiazepine (Primary Dx) 01/01/2025 Telephone [facility] [address] [place] [phone] Kassidy Watson RN UTOX Pos MTD 01/01/2025 Travel from Last 3 Months Immunizations Immunization [...] Description 05/01/2025 9:30 AM EST Clinical Support [facility] [address] [place] [address] Kassidy Watson, RN Health Maintenance Due Date Last Done Comments CT Colonography 1965 FIT DNA/Cologuard 1965 FIT 1965 FOBT 1965 Sigmoidoscopy 1965 Diabetes: Foot Exam 1975 RSV Patients and Patients Aged 60 years or older (1 - Risk 50-74 years 1-dose series) 2015 Dental Oral Exam 09/09/2020 03/11/2020 Dental Prophylaxis 03/07/2022 09/03/2021, 0 09/11/2020, 03/21/2020 Dental X-Ray: Bitewings 09/04/2022 09/03/2021, 03/11 Dental X-Ray: Full Mouth 03/12/2023 03/11/2020 COVID-19 Vaccine ( season) 2024 03/17/2021, 07/14/2020, 06/16/2020 Influenza Vaccine (#1) 2024 3, 02/25/2022, 02/03/2021, Additional history exists Diabetes: Hemoglobin A1C 06/19/2025 025, 06/22/2024, 05/24/2023, Additional history exists Diabetes: Urine Protein Screening 07/17/2025 07/17/2024 Lipid Panel 07/17/2025 07/17/2024, 12/01, 02/06/2021 Alcohol/Substance Use Screening 09/03/2025 09/03/2024 Depression Screening 09/03/2025 09/03/2024, 09/04/19 25 Disability Screening 09/03/2025 09/03/2024 SDOH Screening 09/03/2025 09/03/2024 Eye Exam 10/25/2025 10/26/2023, 08/2022, 02/03/2023, Additional history exists Mammogram 12/07/2025 12/07/2024, 12/31, 01/10/2023, Additional history exists Tobacco Screening 12/17/2025 12/17/2024 Cervical Cancer Screening 02/12/2026 HPV/Cotest 02/12/2026 02/12/2021 Pap Smear 02/12/2026 02/12/2021 DTaP/Tdap/Td Vaccines (3 - Td or Tdap) 12/20/2032 12/20/2022, 11/01/2012 Colonoscopy 09/27/2034 09/27/2024 Colorectal Cancer Screening 09/27/2034 Hepatitis B Vaccines Completed 02/03/2021, 06/19/2019, 09/08/2016 [...] on patient's age to complete this topic Goals Goal Patient Goal Type Associated Problems [...] has chronic kidney disease Kassidy Archer RN Procedures Procedure Name Priority Date/Time Associated Diagnosis Comments POCT MARGE-14 URINE DRUG SCREEN Routine 03/21/2025 11:28 AM EST Long-term current use of benzodiazepine PHENCYCLIDINE SCREEN, URINE Routine 03/21/2025 12:00 AM EST Long-term current use of benzodiazepine METHADONE SCREEN, URINE Routine 03/21/2025 12:00 AM EST Long-term current use of benzodiazepine METHADONE SCREEN, URINE Routine 02/28/2025 10:00 AM [...] screening mammogram for malignant neoplasm of breast COLONOSCOPY Routine 09/27/2024 11:44 AM EDT ALBUMIN, [...] Urine Drug Screen (03/21/2025 11:28 AM EST) Only the most recent of3 resultswithin the time period is included. Pathologist [facility] THC Negative Negative Cocaine Screen, Urine Negative Negative Opiate Screen, Urine Negative Negative Methamphetamine Screen Urine Negative Negative Amphetamine Screen, Urine Negative Negative Benzodiazepines Screen, Urine Negative Negative Comment:[employer] pt on Clonazepam Barbiturate Screen, Urine Negative [...] - 03/21/2025 11:28 AM EST UTOX cup Lot#[id number] Exp. 04/01/26 Internal Pass Control us Shon Darling MD POINT OF CARE TEST ENTER/EDIT OR DERABLES Final Result * Phencyclidine Screen, Urine (03/21/2025 12:00 AM EST) [facility] Phencyclidine Screen Urine Not Detected Not Detect [facility] Comment:Phencyclidine cut-of f is 25 ng/mL.Positive results are unconfirmed and should not be used fornon-medical purposes. Urine 03/21/2025 03/21/2025 us Shon Darling MD LAB URINE ORDERABLES Final Resul t [facility] [address] [place] [phone] * Drug Monitoring, Methadone Metabolite, Screen, Urine (03/21/2025 12:00 AM EST) Only the most recent of3 resultswithin the time period is included. [facility] Methadone Screen, Urine Not Detected Not Detect ng/mL [facility] Comment:Methadone cut-off is 300 ng/mL.Positive results are unconfirmed and should not be used fornon-medical purposes. Urine 03/21/2025 03/21/2025 us Shon Darling MD LAB URINE ORDERABLES Final Resul t [facility] [address] [place] [address] [phone] * (ABNORMAL) POCT HGB A1C (12/17/2024 10:48 AM EDT) Hemoglobin A1C 6.4(A) 4.0 - 5.7 % QC Media Lot # [id number] Lot# Expiration Date Blood 12/17/2024 10:4 8 AM EDT Shon Darling MD POINT OF CARE TEST ENTER/EDIT OR DERABLES Final Result * BI Mammogram Screening Tomosynthesis Bilateral (12/07/2024 1:26 PM EDT) Anatomical Region Laterality Modality Breast Bilateral Mammography 12/07/2024 1:26 PM EDT Narrative 12/17/2024 1:46 PM EDT [address] [place] [address] Mammography Report Signed Patient: Peyton Juarez MR#: [id number] : 1965 Acct:[id number] Age/Sex: 59 / F ADM Date: 12/07/24 Loc: HO.MAMMO Attending Dr: Shon Darling MD Ordering Physician: Shon Darling MD Results: 1Negative Date of Service: 12/07/24 Follow Up: 1 Year From Orig inal Mammogram Procedure(s): MM tomosynthesis screening BI Accession Number(s): [id number] cc: Shon Darling MD EXAMINATION: MM SCREENING [...] 12/17/24 1343 DD/ 1326 TD/TT: 12/07/24 1356 Web Press Jogger: Procedure Note Donotuseinterpreter, Image - 12/17/20[facility] [address] [place] [address] Mammography Report Signed Patient: Zelalem Juarez#: [id number] : 1965Acct:[id number] Age/Sex: 59 / FADM Date: 12/07/24 Loc: DARLENE Attending Dr: Shon Darling MD Ordering Physician: Shon Darling MDResults: 1Negative Date of Service: 12/07/24Follow Up: 1 Year From Orig inal Mammogram Procedure(s): MM tomosynthesis screening BI Accession Number(s): [id number] cc: Shon Darling MD EXAMINATION: MM SCREENING [...] 12/17/24 1343 DD/ 1326 TD/TT: 12/07/24 1356 Web Press Jogger: Shon Darling MD IMG BI PROCEDURES Final Result * Colonoscopy (09/27/2024 11:44 AM EDT) Anatomical Region Laterality Modality Endoscopy [facility] Provider ENDOSCOPY PROCEDURE ORDER SANJUANA Final Result * Albumin, Random Urine W/Creatinine (07/17/2024 3:01 PM EDT) Creatinine, Urine 105.55 mg/dL [facility] Microalbumin Urine 21.0 mg/L [facility] Microalbum Creatinine Ratio Ur 19.8 <30 ug/mg cr [facility] Comment:Albumin/Creatinine R atio Reference Ranges: Normal: < 30 ug/mg creatinine Microalbuminuria: 30 - 300 ug/mg creatinineClinical Albuminuria: > 300 ug/mg creatinine Urine (Urine, Random) 07/17/2024 3:01 PM EDT 07/17/2024 4:19 PM EDT us Shon Darling MD LAB URINE ORDERABLES Final Resul t [facility] [address] [place] [phone] * Lipid Panel, Standard (07/17/2024 3:01 PM EDT) Triglycerides 134 <150 mg/dL [facility] Comment:Desirable Triglyceri de: less than 150 mg/dLBorderline High Triglyceride 150-199 mg/dLHigh Triglyceride: 200-499 mg/dLVery High Triglyceride: greater than or equal to 5OO mg/dL Cholesterol 145 <200 mg/dL [facility] Comment:Desirable Cholestero l: less than 200 mg/dLBorderline High Cholesterol: 200-239 mg/dLHigh Cholesterol: greater than 239 mg/dL LDL Cholesterol Calculated 63 <100 mg/dL [facility] Comment:Desirable LDL: less than 100 mg/dLNear Optimal/Above Optimal LDL: 110- 129 mg/dLBorderline High LDL: 130-159 mg/dLHigh LDL: 160-189 mg/dLVery High LDL: greater than or equal to 190 mg/dL HDL Cholesterol 56 >40 mg/dL [facility] Comment:Desirable HDL: great er than 40 mg/dL Note: This HDL assay may give artificially low results in patients with liver disease. Blood Venous blood specimen / Unknown 07/17/2024 3:01 PM EDT 07/17/2024 4:49 PM EDT us Shon Darling MD LAB BLOOD ORDERABLES Final Resul t [facility] [address] [place] [phone] * Diabetes Eye Exam (10/26/2023) Eye Exam Normal Normal us Shon Darling MD HEALTH MAINTENANCE Final Result * HEPATITIS C AB W/REFL TO HCV RNA, QN, PCR (07/24/2021 10:11 AM EDT) HEPATITIS C ANTIBODY NON-REACT [facility] NON-REACT [facility] INDEX 0.04 <1.00 [facility] Comment: HCV antibody was non-reactive. There is no laboratory evidence of HCV infection. In most cases, no further action is required. However, if recent HCV exposure is suspected, a test for HCV RNA (test code 64435) is suggested. For additional information please refer to http://[employer]/faq/ZXT53v6 (This link is being provided for informational/ educational purposes only.) 07/24/2021 10:1 1 AM EDT us Shon Darling MD HISTORICAL/NON ORDERABLE LABS Fi nal Result Performing Organization Address [facility] Co de Phone Number [facility] [address] [place] [address], * HIV 1/2 ANTIGEN/ANTIBODY,FOURTH GENERATION W/RFL (07/24/2021 10:11 AM EDT) Pathologist [facility] HIV-1/2 ANTIGEN AND ANTIBODIES, 4TH GENERATION W/ REFLEX NON-REACT RADHA NON-REACT RADHA [facility] Comment: HIV-1 antigen and HIV-1/HIV-2 [...] purpose. For additional information please refer to http://[employer]/faq/MZM593 (This link is being provided for informational/ educational purposes only.) The performance of this assay has not been clinically validated in patients less than 2 years old. 07/24/2021 10:1 1 AM EDT us Shon Darling MD LAB BLOOD ORDERABLES Final Resul t Performing Organization Address [facility] Co de Phone Number [facility] [address] [place] [address], * THINPREP TIS PAP (02/12/2021 11:21 AM [...] has been evaluated with computer assisted technology. [facility] Prosthodontist/Educator : SEE COMMENT [facility] Comment: MXD, CT (ASCP) CT screening location: [address] [address] Interpretation/R esult: Negative for intraepithelial lesion or malignancy. [facility] LMP: NONE [facility] Prev. BX: NONE [facility] Prev. PAP: NONE [facility] SOURCE: None given [facility] Statement Of Adequacy: SEE COMMENT [facility] Comment: Satisfactory for evaluation. Endocervical/transformation zone component present. Age and/or menstrual status not provided 02/12/2021 11:2 1 AM EDT Vidya SHEARER LAB PATHOLOGY ORDERABLES Final Result [facility] [address] * HPV mRNA E6/E7 (02/12/2021 11:21 AM EDT) HPV nRNA E6/E7 Not Detected Not Detected [facility] Comment: Methodology: Public Records Officer-Mediated Amplification This assay detects E6/E7 viral messenger RNA (mRNA) from 14 high-risk HPV types (16,18,31,33,35,39,45,51,52,56,58,59,66,68). The analytical performance characteristics of this assay have been determined by [email or web address]. The modifications have not been cleared or approved by the FDA. This assay has been validated pursuant to the CLIA regulations and is used for clinical purposes. For additional information, please refer to http://education.[employer]/faq/ZZQ444o8 (This link if provided for information/ educational purposes only.) 02/12/2021 11:2 1 AM EDT us Vidya Valeria CNM LAB BLOOD ORDERABLES Lizzy leigh Result [facility] [address] from Last 3 Months or Most Recently Relevant to Health Maintenance Additional Health Concerns Active Problems Noted Date [...] 03/21/2025 Patient has chronic kidney disease 03/21/2025 Insurance [facility] STANDARD AARP MEDICARE ADVANTAGE HMO [facility] STAND AD[place] Care Teams Multimedia Developer Relationship Specialty Start Date End Date Name, MD Shon [address] [place] [phone] PCP - General Family Medicine 07/03/15
--- OUTSIDE RECORDS SUMMARY | 2025-03-21 21:04 | XMS_ITS | Encounter Summary ---
Author Organization [employer] Address [address] [facility] [address] [place] [address] Care Team Providers Care Legal Stenographer Name Role Phone Name, Shon HERNÁNDEZ Primary Care Provider [phone] Encounter Details Date Type Department Care Team (Late st Contact Info) Description 09/28/2024 Orders Only [facility] [address] [place], [place] [phone] Provider, MD Dashawn Social History Tobacco Use [...] [facility] [address] [place] [address] Kassidy Watson RN documented as of this [...] documented as of this encounter Care Teams Legal Stenographer Relationship Specialty Start Date End Date Name, MD Shon [address] [place] [address] PCP - General Family Medicine 07/03/15 documented as of this encounter
[2025-03-25 08:29] LABS: Aminoclonazepam, GCMS Urine 2018; Nordiazepam, GCMS Urine NEGATIVE
[2025-03-25 08:30] LABS: Alphahydroxymidazolam,GCMS Ur NEGATIVE; Alphahydroxytriazolam, GCMS Ur NEGATIVE; Alprazolam, GCMS Urine NEGATIVE; Flurazepam Metabolite,GCMS Ur NEGATIVE; Lorazepam GCMS Urine NEGATIVE; Oxazepam, GCMS Urine NEGATIVE; Temazepam, GCMS Urine NEGATIVE
== END 2025-03-21 18:16 | disposition home or self-care (01) ==
LOC: HO.HHCLNP 18:15
PROVIDERS: Visit Provider Internal Medicine Geriatric Medicine
DX: Z79.899 Other long term (current) drug therapy (principal)
CPT/HCPCS: 80307; 80346

== ENCOUNTER 2025-05-01 19:17 | Outpatient (REF) | payer MEDICARE, MEDICAID, SELFPAY ==
--- OUTSIDE RECORDS SUMMARY | 2025-05-01 09:30 | XMS_ITS | Encounter Summary ---
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 Question Answer Date of Assessment Author Feeling nervous, anxious, or on edge 1 04/03 9:40 AM Kassidy Gray RN Not being able to stop or co ntrol worrying 1 05/01/2025 9:40 AM Kasisdy Gray RN Worrying too much about diff erent things 1 05/01/2025 9:40 AM Kassidy Gray RN Trouble relaxing 1 05/01/2025 9:40 AM Kassidy ANTONIO ae, RN Being so restless that it is hard to sit still 1 05/01/2025 9:40 AM Kassidy Gray RN Becoming easily annoyed or irritable 1 04/03 9:40 AM Kassidy Gray RN Feeling afraid as if somethi ng awful might happen 1 05/01/2025 9:40 AM Kassidy Gray RN KATY-7 Total Score 7 05/01/2025 9:40 AM Kassidy Gray RN documented as of this encounter Progress Notes * Kassidy Watson RN - 05/01/2025 9:30 AM EST SUBJECTIVE: Peyton Juarez is a 59 y.o. 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 Translation provided by staff member Tirso Mariano Interpreted needed: Yes Peyton Juarez does report adherence to Clonazepam (Klonopin) 1 mg, take 1 tablet every 8 hours PRN, last refilled 04/08/2025. States she usually uses 2 doses a day, sometimes 3. The patient last took Clonazepam (Klonopin) on: 04/30/2025 Medication effective: Yes Sleep habits: No issues Therapist: Yes OBJECTIVE: IMPROVEMENT COORDINATOR checked: 05/01/2025 Pill count completed for Clonazepam (Klonopin), count today is 32 , anticipated count should be 14,this is as expected. Last PCP visit: 12/17/2024 KATY-7 Total Score: 7 (05/01/2025 9:40 AM) Previous KATY-7 done: 11/22/2024, score: 20 Controlled substance agreement signed: Controlled Substance Agreement 11/22/2024 LEAD SOFTWARE DEVELOPER Tier: 1 Current Medications[1] Smoking status: Denies ETOH use: Denies Illicit substances: Denies Marijuana use: Denies Lab Results Component Value Date POCTHC Negative 05/01/2025 POCCOCAINEUR Negative 05/01/2025 POCOPIATEUR Negative 05/01/2025 DOAUR Negative 05/01/2025 POCAMPHETAMI Negative 05/01/2025 POCBENZODIUR Positive (A) 05/01/2025 POCBARBSCRN Negative 05/01/2025 POCMETHADOUR Positive (A) 05/01/2025 POCBUPSCRN Negative 05/01/2025 POCTCAUR Negative 05/01/2025 POCMDMAUR Negative 05/01/2025 POCOXYCODONE Negative 05/01/2025 POCPHENCYCUR Negative 05/01/2025 PROPOXUR Negative 05/01/2025 FENTANYLURIN Negative 05/01/2025 Reviewed UTOX results, explained I would send urine out for MTD confirmation. Pt has had several UTOX stated Pos MTD, but confirmations all return negative MTD. ASSESSMENT: Encounter Diagnosis Name Primary? Long-term current use of benzodiazepine Yes PLAN: Information on acupuncture given: Previously discussed Narcan education provided: Previously discussed Narcan prescription: active Will update PCP with KATY scoring and send request for Clonazepam refill Peyton Juarez will continue taking medication as prescribed and follow up at the next LEAD SOFTWARE DEVELOPER visit or sooner if needed. Peyton Juarez has verbalized understanding of care plan. Future Appointments Date Time Provider Department Center 06/05/2025 10:00 AM [facility]assidy [facility] Kassidy Watson RN [1] Current Outpatient Medications: clonazePAM (KlonoPIN) 1 MG tablet, TAKE 1 TABLET BY MOUTH THREE TIMES DAILY IN THE MORNING, AT NOON, AND AT BEDTIME. Do not start before April 02, 2025., Disp: 84 tablet, Rfl: 0 Accu-Chek [...] as needed forconstipation, Disp: , Rfl: Lancets (Somo Delica Plus [id number]) misc, TEST BLOOD SUGAR ONCE DAILY, Disp: 100 each, Rfl: 5 Lancets (Guided Surgery SolutionsTouch Delica) lancets 30G, 1 each by Other [...] Care Team (Late st Contact Info) Description 06/05/2025 10:00 AM EST Clinical Support [address] [address] Kassidy Watson RN Scheduled Orders Name Type Priority Associated Diagnoses Orde r Schedule Drug Monitoring, Methadone Metabolite, Screen, Urine Lab Routine Long-term current use of benzodiazepine Ordered: 05/01/2025 documented as of this encounter Goals Goal [...] task Care Plan Weekly blood pressure task Paul Morel Weekly blood pressure task Care Plan Weekly blood pressure task No Paul Juarez Patient has chronic kidney disease Care Plan Patient has chronic kidney disease No Paul Juarez Patient has chronic kidney disease Care Plan Patient has chronic kidney disease No Paul Juarez Weekly blood pressure task Care Plan Weekly blood pressure task No Tony Marrero [place] Weekly blood pressure task Care Plan Weekly blood pressure task No Tony Marrero [place] Patient has chronic kidney disease Care Plan Patient has chronic kidney disease No Tony Marrero [place] Patient has chronic kidney disease Care Plan Patient has chronic kidney disease No Tony Marrero [place] Weekly blood pressure task Care Plan Weekly blood pressure task No Kassidy Watson RN Weekly blood pressure task Care Plan Weekly blood pressure task No Kassidy Watson RN Patient has chronic kidney disease Care Plan Patient has chronic kidney disease No Kassidy Watson RN Patient has chronic [...] chronic kidney disease No Kassidy Watson RN Patient has chronic kidney disease Care Plan Patient has chronic kidney disease No Kassidy Watson RN documented as of this encounter Procedures Procedure Name Priority Date/Time Associated Diagnosis Comments POCT MARGE-14 URINE DRUG SCREEN Routine 05/01/2025 9:41 AM EST Long-term current use of benzodiazepine documented in this encounter Results * (ABNORMAL) POCT MARGE-14 Urine Drug Screen (05/01/2025 9:41 AM EST) Pathologist [facility] Amphetamine Screen, Urine Negative Negative Barbiturate Screen, Urine Negative Negative Buprenophine Screen, Urine Negative Negative Benzodiazepines Screen, Urine Positive(A) Negative Comment:LEAD SOFTWARE DEVELOPER pt on Clonaezpam Cocaine Screen, Urine Negative Negative Fentanyl, Urine Negative Negative MDMA Urine Negative Negative ng/mL Methamphetamine Screen Urine Negative Negative Opiate Screen, Urine Negative Negative Methadone Screen, Urine Positive(A) Negative Oxycodone Screen, Urine Negative Negative Phencyclidine (PCP), Urine Negative Negative TCA, Urine Negative Negative THC Negative Negative Propoxyphene, Urine Negative Negative Urine Urine specimen obtained by clean catch procedure / Unknown 05/01/2025 9:41 AM EST Kassidy Herbert RN - 05/01/2025 9:41 AM EST UTOX cup Lot#[id number] Exp. 11/06/2026 Internal Pass Control Shon Darling MD POINT [...] kidney disease 03/21/2025 Weekly blood pressure task 04/01/2025 Weekly blood pressure task 04/01/2025 Patient has chronic kidney disease 04/01/2025 Patient has chronic kidney disease 04/01/2025 Weekly blood pressure task 04/01/2025 Weekly blood pressure task 04/01/2025 Patient has chronic kidney disease 04/01/2025 Patient has chronic kidney disease 04/01/2025 Weekly blood pressure task 04/16/2025 Weekly blood pressure task 04/16/2025 Patient has chronic kidney disease 04/16/2025 Patient has chronic kidney disease 04/16/2025 Weekly blood pressure task 05/01/2025 Weekly blood pressure task 05/01/2025 Patient has chronic kidney disease 05/01/2025 Patient has chronic kidney disease 05/01/2025 Assessment Noted Time PHQ-9 Depression Total Score: 2 09/04/19 25 11:56 AM EDT documented as of this encounter Care Teams Committee Member Relationship Specialty Start Date End Date Name, MD Shon [address] [place] [address] PCP - General Family Medicine 07/03/15 documented as of this encounter
--- OUTSIDE RECORDS SUMMARY | 2025-05-01 19:20 | XMS_ITS | Encounter Summary ---
Author Organization [employer] Address [address] [facility] 7t [place] [address] Care Team Providers Care Flour Broker Name Role Phone Name, Shon HERNÁNDEZ Primary Care Provider [phone] Reason for Visit * Reason Comments Med Refill Encounter Details Date Type Department Care Team ([facility] st Contact Info) Description 03/16/2024 Refill [facility] MEDICINE [address] [place], [place] [phone] Name, MD Shon [address] [place], [place] [phone] Bipolar I disorder ([facility]) Social History Tobacco Use Types Packs/Day Years [...] Description 06/05/2025 10:00 AM EST Clinical Support [facility] MEDICINE [address] [place] [address] Kassidy Watson RN documented as of this encounter Visit Diagnoses Diagnosis Bipolar I disorder (CMS/HCC) (HCC) Bipolar I disorder, most recent episode (or current) unspecified documented in this encounter Additional Health Concerns Assessment Noted Time PHQ-9 Depression Total Score: 6 08/19/19 23 11:30 AM EDT documented as of this encounter Care Teams Flour Broker Relationship Specialty Start Date End Date Name, MD Shon [address] [place] [address] PCP - General Family Medicine 07/03/15 documented as of this encounter
--- OUTSIDE RECORDS SUMMARY | 2025-05-01 19:20 | XMS_ITS | Encounter Summary ---
Author Organization [employer] Address [address] [place] [address] 7 [place] [address] Care Team Providers Care Commercial Production Editor Name Role Phone Name, Shon HERNÁNDEZ Primary Care Provider [phone] Reason for Visit * Reason Comments Med Refill Encounter Details Date Type Department Care Team (Late st Contact Info) Description 10/11/2022 Refill [facility] MEDICINE [address] [place] [phone] Name, MD Shon [address] [place] [address] [phone] Mood disorder (CMS/HCC) Social History Tobacco Use [...] Description 06/05/2025 10:00 AM EST Clinical Support [facility] MEDICINE [address] [place] [phone] Kassidy Watson RN documented as of this encounter Visit Diagnoses Diagnosis Mood disorder (CMS/HCC) Unspecified episodic mood disorder documented in this encounter Additional Health Concerns Assessment Noted Time PHQ-9 Depression Total Score: 6 08/19/19 23 11:30 AM EDT documented as of this encounter Care Teams Commercial Production Editor Relationship Specialty Start Date End Date Name, MD Shon [address] [place] [address] PCP - General Family Medicine 07/03/15 documented as of this encounter
--- OUTSIDE RECORDS SUMMARY | 2025-05-01 19:20 | XMS_ITS | Encounter Summary ---
Author Organization [employer] Address [address] [place] [address] 7t [place] [address] Care Team Providers Care Scalping Machine Operator Name Role Phone Name, Shon HERNÁNDEZ Primary Care Provider [phone] Encounter Details Date Type Department Care Team (Latest Contact Info) Description 03/21/2020 Abstract [facility] CONVERSIONS Dental, Provider, DDS Social History Tobacco [...] Description 06/05/2025 10:00 AM EST Clinical Support [facility] MEDICINE [address] [place] [address] Kassidy Watson, RN documented as of this encounter Visit Diagnoses Not on filedocumented in this encounter Care Teams Scalping Machine Operator Relationship Specialty Start Date End Date Name, MD Shon [address] [place] [address] PCP - General Family Medicine 07/03/15 documented as of this encounter
--- OUTSIDE RECORDS SUMMARY | 2025-05-01 19:20 | XMS_ITS | Encounter Summary ---
Author Organization [employer] Address [address] [facility] 7t [place] [address] Care Team Providers Care Upper Marker Name Role Phone Name, Shon HERNÁNDEZ Primary Care Provider [phone] Encounter Details Date Type Department Care Team ([facility] Contact Info) Description 03/12/2025 Telephone [facility] MEDICINE [address] [place], [place] [phone] Name, MD Shon [address] [place] [address] Social History Tobacco Use Types Packs/Day Years [...] Description 06/05/2025 10:00 AM EST Clinical Support [facility] MEDICINE [address] [place] [address] Kassidy Watson RN documented as of this encounter Visit Diagnoses Not on filedocumented in this encounter Additional Health Concerns Assessment Noted Time PHQ-9 Depression Total Score: 2 09/04/19 25 11:56 AM EDT documented as of this encounter Care Teams Upper Marker Relationship Specialty Start Date End Date Name, MD Shon [address] [place] [address] PCP - General Family Medicine 07/03/15 documented as of this encounter
--- OUTSIDE RECORDS SUMMARY | 2025-05-01 19:20 | XMS_ITS | Encounter Summary ---
Author Organization [employer] Address [address] [place] [address] 7t [place] [address] Care Team Providers Care Integration Manager Name Role Phone Name, Shon HERNÁNDEZ Primary Care Provider [phone] Encounter Details Date Type Department Care Team (Latest Contact Info) Description 09/03/2021 Abstract [facility] CONVERSIONS Dental, Provider, DDS Social History [...] Description 06/05/2025 10:00 AM EST Clinical Support [facility] MEDICINE [address] [place] [address] Kassidy Watson, RN documented as of this encounter Visit Diagnoses Not on filedocumented in this encounter Care Teams Integration Manager Relationship Specialty Start Date End Date Name, MD Shon [address] [place] [address] PCP - General Family Medicine 07/03/15 documented as of this encounter
--- OUTSIDE RECORDS SUMMARY | 2025-05-01 19:20 | XMS_ITS | Encounter Summary ---
Author Organization [employer] Address [address] [facility] 7t [place] [address] Care Team Providers Care Senior Government Program Analyst Name Role Phone Name, Shon HERNÁNDEZ Primary Care Provider [phone] Reason for Visit * Reason Onset Date Comments Med Refill 11/01/2023 Encounter Details Date Type Department Care Team ([facility] st Contact Info) Description 11/01/2023 Telephone [facility] MEDICINE [address] [place], [place] [phone] Name, MD Shon [address] [place], [place] [phone] Med Refill Social History Tobacco Use Types [...] - 11/01/2023 12:01 PM EDT Spoke with [facility] pharmacy. Clonazepam RX sent 10/26/23 has not been delivered yet and is being delivered tomorrow. Pt was made aware by pharmacy. * Telephone Encounter - Cindy Chong - 11/01/2023 11:28 AM EDT TC from pt requesting medication refill. Medications needing refill : clonazePAM (KlonoPIN) 1 MG tablet To be sent to: [facility] - [place], [place] - [address] [place] [address] documented in this encounter Plan of Treatment Upcoming Encounters Date Type Department Care Team (Late st Contact Info) Description 06/05/2025 10:00 AM EST Clinical Support [facility] MEDICINE [address] [place] [address] Kassidy Watson, RN documented as of this encounter Visit Diagnoses Diagnosis Bipolar I disorder (CMS/HCC) (HCC) Bipolar I disorder, most recent episode (or current) unspecified documented in this encounter Additional Health Concerns Assessment Noted Time PHQ-9 Depression Total Score: 6 08/19/19 23 11:30 AM EDT documented as of this encounter Care Teams Senior Government Program Analyst Relationship Specialty Start Date End Date Name, MD Shon [address] [place] [address] PCP - General Family Medicine 07/03/15 documented as of this encounter
--- OUTSIDE RECORDS SUMMARY | 2025-05-01 19:20 | XMS_ITS | Encounter Summary ---
Author Organization [employer] Address [address] [facility] 7t [place] [address] Care Team Providers Care Metallurgical Or Materials Technician Name Role Phone Name, Shon HERNÁNDEZ Primary Care Provider [phone] Reason for Visit * Reason Onset Date Comments Referral 07/27/2022 Encounter Details Date Type Department Care Team ([facility] st Contact Info) Description 07/27/2022 Telephone [facility] MEDICINE [address] [place], [place] [phone] Name, MD Shon [address] [place] [address] Referral Social History Tobacco Use Types Packs/Day [...] AM EDT T/C placed to pt via [employer] Lo #[id number]. Pt states she is requesting eye care [...] the vision center. Please contact pt at [phone] documented in this encounter Plan of Treatment Upcoming Encounters Date Type Department Care Team (Late st Contact Info) Description 06/05/2025 10:00 AM EST Clinical Support [facility] MEDICINE [address] [place] [phone] Kassidy Watson RN documented as of this encounter Visit Diagnoses Diagnosis Blurred vision, bilateral- Primary Other specified visual disturbances documented in this encounter Care Teams Metallurgical Or Materials Technician Relationship Specialty Start Date End Date Name, MD Shon [address] [place] [address] PCP - General Family Medicine 07/03/15 documented as of this encounter
--- OUTSIDE RECORDS SUMMARY | 2025-05-01 19:20 | XMS_ITS | Encounter Summary ---
Author Organization [employer] Address [address] [facility] 7t [place] [address] Care Team Providers Care Back Tender Pulp Drier Name Role Phone Name, Shon HERNÁNDEZ Primary Care Provider [phone] Reason for Visit * Reason Comments Med Refill Encounter Details Date Type Department Care Team ([facility] st Contact Info) Description 12/22/[address] [facility] MEDICINE [address] [place], [place] [phone] Name, MD Shon [address] [place], [place] [phone] Bipolar I disorder ([facility]) Social History Tobacco Use Types Packs/Day Years [...] 10:00 AM EST Clinical Support [facility] MEDICINE [address] [place] [address] Kassidy Watson RN documented as of this encounter Visit Diagnoses Diagnosis Bipolar I disorder (CMS/HCC) (HCC) Bipolar I disorder, most recent episode (or current) unspecified documented in this encounter Additional Health Concerns Assessment Noted Time PHQ-9 Depression Total Score: 6 08/19/19 23 11:30 AM EDT documented as of this encounter Care Teams Back Tender Pulp Drier Relationship Specialty Start Date End Date Name, MD Shon [address] [place] [address] PCP - General Family Medicine 07/03/15 documented as of this encounter
--- OUTSIDE RECORDS SUMMARY | 2025-05-01 19:20 | XMS_ITS | Encounter Summary ---
Author Organization [employer] Address [address] [place] [address] 7t [place] [address] Care Team Providers Care Supervisor Car And Yard Name Role Phone Name, Shon HERNÁNDEZ Primary Care Provider [phone] Encounter Details Date Type Department Care Team (Late st Contact Info) Description 04/19/2022 Orders Only [facility] [address] [place] [address] Nidia Leon LPN Social History Tobacco Use [...] Description 06/05/2025 10:00 AM EST Clinical Support [facility] MEDICINE [address] [place] [address] Kassidy Watson, RN documented as of this encounter Visit Diagnoses Not on filedocumented in this encounter Care Teams Supervisor Car And Yard Relationship Specialty Start Date End Date Name, MD Shon [address] [place] [address] PCP - General Family Medicine 07/03/15 documented as of this encounter
--- OUTSIDE RECORDS SUMMARY | 2025-05-01 19:20 | XMS_ITS | Encounter Summary ---
Author Organization [employer] Address [address] [facility] 7t [place] [address] Care Team Providers Care Lunchroom Supervisor Name Role Phone Name, Shon HERNÁNDEZ Primary Care Provider [phone] Reason for Visit * Reason Onset Date Comments A1C 04/12/2023 Encounter Details Date Type Department Care Team ([facility] st Contact Info) Description 04/12/2023 Telephone [facility] MEDICINE [address] [place], [place] [phone] Name, MD Shon [address] [place] [address] A1C Social History Tobacco Use Types Packs/Day [...] 2:00 PM EST T/C to pt. Through [email or web address] id - [id number] for below message, pt., schedule for apt. [...] going to be sick) ,and general weakness. [facility] hours are reviewed. Pt. verbally agreed and understood. * Telephone Encounter - Tere Gracia - 04/12/2023 12:15 PM EST TC from JOSE Ayoub calling on behalf of her last visit with pt and states pt AC1 came back as a result on 7.0. Please if any questions please contact Jose @ [phone] documented in this encounter Plan of Treatment Upcoming Encounters Date Type Department Care Team (Late st Contact Info) Description 06/05/2025 10:00 AM EST Clinical Support [facility] MEDICINE [address] [place] [address] Kassidy Watson, RN documented as of this encounter Visit Diagnoses Not on filedocumented in this encounter Additional Health Concerns Assessment Noted Time PHQ-9 Depression Total Score: 6 08/19/19 23 11:30 AM EDT documented as of this encounter Care Teams Lunchroom Supervisor Relationship Specialty Start Date End Date Name, MD Shon [address] [place] [address] PCP - General Family Medicine 07/03/15 documented as of this encounter
--- OUTSIDE RECORDS SUMMARY | 2025-05-01 19:21 | XMS_ITS | Encounter Summary ---
Author Organization [employer] Address [address] [facility] [address] 7t [place] [address] Care Team Providers Care Materials Technician Name Role Phone Name, Shon HERNÁNDEZ Primary Care Provider [phone] Encounter Details Date Type Department Care Team (Latest Contact Info) Description 05/01/2025 Travel Social History Tobacco Use Types Packs/Day [...] Description 06/05/2025 10:00 AM EST Clinical Support [facility] MEDICINE [address] [place] [address] Kassidy Watson RN documented as of this [...] Weekly blood pressure task No Paul Juarez Weekly blood pressure task [...] blood pressure task No Tony Marrero [place] Patient has chronic kidney disease Care Plan Patient has chronic kidney disease No Tony Marrero [place] Patient has chronic kidney disease Care Plan Patient has chronic kidney disease Tony Dukes [place] Weekly blood pressure task Care Plan [...] Archer RN documented as of this encounter Visit [...] Noted Time PHQ-9 Depression Total Score: 2 05/05/20 25 11:56 AM EDT documented as of this encounter Care Teams Materials Technician Relationship Specialty Start Date End Date Name, MD Shon [address] [place] [address] PCP - General Family Medicine 07/03/15 documented as of this encounter
--- OUTSIDE RECORDS SUMMARY | 2025-05-01 19:21 | XMS_ITS | Encounter Summary ---
Author Organization [employer] Address [address] [facility] 7t [place] [address] Care Team Providers Care Drainman Name Role Phone Name, Shon HERNÁNDEZ Primary Care Provider [phone] Reason for Visit * Reason Comments Med Refill Encounter Details Date Type Department Care Team ([facility] st Contact Info) Description 03/02/2023 Refill [facility] MEDICINE [address] [place], [place] [phone] Name, MD Shon [address] [place], [place] [phone] Bipolar I disorder ([facility]) Social History Tobacco Use Types Packs/Day Years [...] Description 06/05/2025 10:00 AM EST Clinical Support [facility] MEDICINE [address] [place] [address] Kassidy Watson RN documented as of this encounter Visit Diagnoses Diagnosis Bipolar I disorder (CMS/HCC) (HCC) Bipolar I disorder, most recent episode (or current) unspecified documented in this encounter Additional Health Concerns Assessment Noted Time PHQ-9 Depression Total Score: 6 08/19/19 23 11:30 AM EDT documented as of this encounter Care Teams Drainman Relationship Specialty Start Date End Date Name, MD Shon [address] [place] [address] PCP - General Family Medicine 07/03/15 documented as of this encounter
--- OUTSIDE RECORDS SUMMARY | 2025-05-01 19:21 | XMS_ITS | Encounter Summary ---
Author Organization [employer] Address [address] [place] [address] 7 [place] [address] Care Team Providers Care Rag Room Supervisor Name Role Phone Name, Shon HERNÁNDEZ Primary Care Provider [phone] Reason for Visit * Reason Comments Med Refill Encounter Details Date Type Department Care Team (Late st Contact Info) Description 12/16/2022 Refill [facility] [address] [place] [address] [phone] Name, MD Shon [address] [place] [phone] Bipolar I disorder ([facility] Social History Tobacco Use Types Packs/Day Years [...] Description 06/05/2025 10:00 AM EST Clinical Support [facility] [address] [place] [phone] Kassidy Watson, RN documented as of this encounter Visit Diagnoses Diagnosis Bipolar I disorder (CMS/HCC) (HCC) Bipolar I disorder, most recent episode (or current) unspecified documented in this encounter Additional Health Concerns Assessment Noted Time PHQ-9 Depression Total Score: 6 08/19/19 23 11:30 AM EDT documented as of this encounter Care Teams Rag Room Supervisor Relationship Specialty Start Date End Date Name, MD Shon [address] [place] [address] PCP - General Family Medicine 07/03/15 documented as of this encounter
--- OUTSIDE RECORDS SUMMARY | 2025-05-01 19:21 | XMS_ITS | Encounter Summary ---
Author Organization [employer] Address [address] [facility] 7t [place] [address] Care Team Providers Care Hand Alterations Seamstress Name Role Phone Name, Shon HERNÁNDEZ Primary Care Provider Encounter Details Date Type Department Care Team (Late st Contact Info) Description 09/28/2024 Orders Only [facility] [address] [place], [place] [phone] Provider, MD Dashawn Social History Tobacco Use [...] Description 06/05/2025 10:00 AM EST Clinical Support [facility] [address] [place] [address] Kassidy Watson RN documented as of this [...] documented as of this encounter Care Teams Hand Alterations Seamstress Relationship Specialty Start Date End Date Name, MD Shon [address] [place] [address] PCP - General Family Medicine 07/03/15 documented as of this encounter
--- OUTSIDE RECORDS SUMMARY | 2025-05-01 19:21 | XMS_ITS | Clinical Summary ---
Author Organization [employer] Address [address] [place] [address] 7t [place] [address] Care Team Providers Care Converting Supervisor Name Role Phone Name, Shon HERNÁNDEZ Primary Care Provider [phone] Allergies No known active allergies Medications * [...] 3 024 Active Blood Glucose Monitoring Suppl (Pipeline) w/Device kitIndications:Ne w onset type 2 diabetes mellitus (HCC) Use to check blood sugar by subcutaneous route once a day 1 kit 024 Active Lancets (OneTouch Delica) lancets 30GIndications:Ne w onset type 2 diabetes mellitus (HCC) 1 each by Other route Once daily. 100 each 3 024 Active Blood Glucose Monitoring Suppl (Pipeline) w/Device kit TEST BLOOD SUGAR ONCE DAILY [...] 3 025 Active Lancets (OneTouch Delica Plus [id number]) [facility] TEST BLOOD SUGAR ONCE DAILY 100 each 5 025 Active OneTouch Verio test stripIndications: New onset type 2 diabetes mellitus (HCC) TEST BLOOD SUGAR ONCE DAILY 100 strip 5 Active ferrous sulfate (Fe Tabs) 325 (65 Fe) MG EC tablet Take 1 tablet (325 mg) by mouth every other day. Do not crush, chew, or split. 15 tablet 11 04/16/20 25 9:33 AM EST 025 2025 Active naloxone (Narcan) 4 mg/0.1 mL nasal [...] tablet 5 03/18/20 25 10:51 AM EST Active mirtazapine (Remeron) 7.5 MG tablet TAKE 1 TABLET BY MOUTH AT BEDTIME 30 tablet 5 Active risperiDONE (RisperDAL) 2 MG tabletIndications :Mood disorder (CMS/HCC) TAKE 1 TABLET BY MOUTH AT BEDTIME 30 tablet 5 03/18/20 25 10:51 AM EST Active melatonin 5 MG tabletIndications :Insomnia, unspecified [...] by finger stick once daily. 100 each Active cholecalciferol VITAMIN D (Vitamin D-3) 50 MCG (1999) tablet TAKE 1 TABLET BY MOUTH EVERY MORNING 90 tablet 1 Active Multiple Vitamin (Multivitamin) tabletIndications :Asthma, unspecified asthma severity, unspecified whether complicated, unspecified whether persistent TAKE 1 TABLET BY MOUTH EVERY MORNING WITH FOOD 90 tablet 1 04/16/20 25 9:33 AM EST 025 Active sertraline (Zoloft) 100 MG tabletIndications :Asthma, unspecified asthma severity, unspecified whether complicated, unspecified whether persistent TAKE 1 TABLET BY MOUTH EVERY MORNING 90 tablet 1 04/16/20 25 9:33 AM EST 025 Active clonazePAM (KlonoPIN) 1 MG tabletIndications :Bipolar I disorder ([facility]) ([facility]) TAKE 1 TABLET BY MOUTH THREE TIMES DAILY IN THE MORNING, AT NOON, AND AT BEDTIME. Do not start before May 06, 2025. 84 tablet 026 2025 Active cholecalciferol VITAMIN D (Vitamin D-3) 50 MCG (1999) tablet TAKE 1 TABLET BY MOUTH EVERY MORNING 90 tablet 1 025 2024 Discontinued sertraline (Zoloft) 100 MG tabletIndications :Asthma, unspecified asthma severity, unspecified whether complicated, unspecified whether persistent TAKE 1 TABLET BY MOUTH EVERY MORNING 90 tablet 1 025 2024 Discontinued Multiple Vitamin (Multivitamin) tabletIndications :Asthma, unspecified asthma severity, unspecified whether complicated, unspecified whether persistent TAKE 1 TABLET BY MOUTH EVERY MORNING WITH FOOD 90 tablet 1 025 2024 Discontinued clonazePAM (KlonoPIN) 1 MG tabletIndications :Bipolar I disorder ([facility]) ([facility]) TAKE 1 TABLET BY MOUTH THREE TIMES DAILY IN THE MORNING, AT NOON, AND AT BEDTIME. Do not start before April 02, 2025. 84 tablet 04/08/20 25 10:50 AM EST 025 2024 Discontinued(R eorder (will not trigger [...] pharmacy Emphasized importance of attending f/u with BEHAVIORAL MODIFICATION ASSISTANT for pill counts and Utox screening, message sent to BEHAVIORAL MODIFICATION ASSISTANT RN to reschedule f/u Pt agreeable with [...] gastroenterostomy and near esophagojejunostomy. She follows at [facility] for frequent endoscopies for surveillance, radiofrequency [...] Encounters Date Type Department Care Team Description 05/01/2025 9:30 AM EST Clinical Support [facility] [place] [address] Kassidy Watson RN Long-term current use of benzodiazepine (Primary Dx) 05/01/2025 Refill [facility] [place] [address] Kassidy Watson RN Bipolar I disorder ([facility]) (HCC) 05/01/2025 Travel 04/02/2025 Refill [facility] [place] [address] Shon Darling MD Asthma, unspecified asthma severity, unspecified whether complicated, unspecified whether persistent 04/01/2025 Telephone [facility] [place] [address] Tony Marrero [place] dec recalls 04/01/2025 Refill [facility] [place] [address] Shon Darling MD Bipolar I disorder ([facility]) (HCC) 03/21/2025 10:00 AM EST Clinical Support [facility] [place] [address] Kassidy Watson RN Long-term current use of benzodiazepine (Primary Dx) 03/21/2025 Telephone [facility] [place] [address] Kassidy Watson RN Abnormal UTOX 03/21/2025 Travel 03/12/2025 Telephone [facility] [place] [address] Shon Darling MD 03/04/2025 Telephone [facility] [place] [address] Shon Darling MD Med Refill 02/28/2025 9:30 AM EDT Clinical Support [facility] [place] [address] Kassidy Watson RN Long-term current use of benzodiazepine (Primary Dx) 02/28/2025 Refill [facility] [address] [place] [address] Kassidy Watson RN Bipolar I disorder ([facility]) (HCC) 02/28/2025 Travel 02/18/2025 Refill [facility] [address] [place] [address] Shon Darling MD Bipolar I disorder ([facility]) (HCC) 02/12/2025 Refill [facility] [address] [place] [address] Shon Darling MD Type 2 diabetes mellitus treated without insulin ([facility]) (Primary Dx) 02/04/2025 Telephone [facility] [address] [place] [address] Kassidy Watson RN NCNS BEHAVIORAL MODIFICATION ASSISTANT RV today 02/04/2025 Refill [facility] [address] [place] [address] Shon Darling MD Insomnia, unspecified type from Last 3 Months Immunizations Immunization Administration [...] your housing situation today? I have philly sing 09/03/[address] you li [...] Description 06/05/2025 10:00 AM EST Clinical Support [facility] [address] [place] [address] Kassidy Watson, RN Health Maintenance Due Date [...] Screening 09/03/2025 09/03/2024 Eye Exam 10/25/2025 10/26/2023, 1008/2022, 02/03/2023, Additional history exists Mammogram 12/07/2025 12/07/2024, [...] chronic kidney disease No Kassidy Watson RN Procedures Procedure Name Priority Date/Time Associated Diagnosis Comments POCT MARGE-14 URINE DRUG SCREEN Routine 05/01/2025 9:41 AM EST Long-term current use of benzodiazepine POCT MARGE-14 URINE DRUG SCREEN Routine 03/21/2025 11:28 AM EST Long-term current use of benzodiazepine DRUG MONITORING, BENZODIAZEPINES, QUANTITATIVE, URINE Routine 03/21/2025 10:00 AM EST Long-term current use of benzodiazepine [...] Urine Drug Screen (05/01/2025 9:41 AM EST) Only the most recent of3 resultswithin the time period is included. Amphetamine Screen, Urine Negative Negative Barbiturate Screen, Urine Negative Negative Buprenophine Screen, Urine Negative Negative Benzodiazepines Screen, Urine Positive(A) Negative Comment:BEHAVIORAL MODIFICATION ASSISTANT pt on Clonaezpam Cocaine Screen, Urine Negative [...] - 05/01/2025 9:41 AM EST UTOX cup Lot#[id number] Exp. 11/06/2026 Internal Pass Control us Shon Name MD POINT OF CARE TEST ENTER/EDIT OR DERABLES Final Result * Drug Monitoring, Benzodiazepines, Quantitative, Urine (03/21/2025 10:00 AM EST) Nordiazepam, GCMS Urine NEGATIVE [facility] Comment:CUTOFF 50 NG/ML Oxazepam, GCMS Urine NEGATIVE [facility] Comment:CUTOFF 50 NG/ML Lorazepam GCMS Urine NEGATIVE [facility] Comment:CUTOFF 50 NG/ML Alprazolam, GCMS Urine NEGATIVE [facility] Comment:CUTOFF 25 NG/ML Alphahydroxytriazolam, GCMS Ur NEGATIVE [facility] Comment:CUTOFF 50 NG/ML Temazepam, GCMS Urine NEGATIVE [facility] Comment:CUTOFF 50 NG/ML Alphahydroxymidazolam,GC MS Ur NEGATIVE [facility] Comment:CUTOFF 50 NG/ML Aminoclonazepam, GCMS Urine 2018 [facility] Comment:CUTOFF 25 NG/ML Flurazepam Metabolite,GCMS Ur NEGATIVE [facility] Comment:CUTOFF 50 NG/ML Benzodiazepines Comments SEE NOTE [facility] Comment:NOTES AND COMMENTSTh is drug testing is for medical treatment only. Analysiswas performed as non-forensic testing and these resultsshould be used only by healthcare providers to renderdiagnosis or treatment, or to monitor progress of medicalconditions.Benzodiazepines Notes:Aminoclonazepam detected is consistent with the use of thedrug Clonazepam.LDT Notes:Confirmation tests were developed and their analyticalperformance characteristics have been determined by [employer]. It has not been cleared or approved by the FDA.This assay has been validated pursuant to the CLIAregulations and is used for clinical purposes.Healthcare Providers needing Interpretation assistance,please contact us at [phone] ) M-F,8am to 10pm ESTPERFORMING SITE:[facility] [employer] [facility], [address] [place] [phone] Recruitment Advertising Manager: ZOE HICKMAN MD, CLIA:[id number] Urine 03/21/2025 10:0 0 AM EST 03/21/2025 6:15 PM EST us Shon Darling MD LAB URINE ORDERABLES Final Resul t [facility] [address] [place] [phone] * Phencyclidine Screen, Urine (03/21/2025 12:00 AM EST) Phencyclidine Screen Urine Not Detected Not Detect [facility] Comment:Phencyclidine cut-of f is 25 ng/mL.Positive results are unconfirmed and should not be used fornon-medical purposes. Urine 03/21/2025 03/21/2025 us Shon Darling MD LAB URINE ORDERABLES Final Resul t Performing Organization Address City/[facility]/ZIP Co de Phone Number [facility] [address] [place] [phone] * Drug Monitoring, Methadone Metabolite, Screen, Urine (03/21/2025 12:00 AM EST) Only the most recent of2 resultswithin the time period is included. Methadone Screen, Urine Not Detected Not Detect ng/mL [facility] Comment:Methadone cut-off is 300 ng/mL.Positive results are unconfirmed and should not be used fornon-medical purposes. Urine 03/21/2025 03/21/2025 us Shon Darling MD LAB URINE ORDERABLES Final Resul t Performing Organization Address [facility] Co de Phone Number [facility] [address] [place] [phone] * (ABNORMAL) POCT HGB A1C (12/17/2024 10:48 AM EDT) Hemoglobin A1C 6.4(A) 4.0 - 5.7 % QC Media Lot # [id number] Lot# Expiration Date 72 Blood 12/17/2024 10:4 8 AM EDT us Shon Darling MD POINT OF CARE TEST ENTER/EDIT OR DERABLES Final Result * BI Mammogram Screening Tomosynthesis Bilateral (12/07/2024 1:26 PM EDT) Anatomical Region Laterality Modality Breast Bilateral Mammography 12/07/2024 1:26 PM EDT Narrative 12/17/2024 1:46 PM EDT [facility] [address] [place] [address] Mammography Report Signed Patient: Peyton Juarez MR#: [id number] : 1965 Acct:[id number] Age/Sex: 59 / F ADM Date: 12/07/24 Loc: MAMMO Attending Dr: Shon Darling MD Ordering Physician: Shon Darling MD Results: 1Negative Date of Service: 12/07/24 Follow Up: 1 Year From Orig ina Mammogram Procedure(s): MM tomosynthesis screening BI Accession Number(s): [id number] cc: Shon Darling MD EXAMINATION: MM SCREENING [...] 12/17/24 1343 DD/ 1326 TD/TT: 12/07/24 1356 Professor Of Environmental Science: Procedure Note Donotuseinterpreter, Image - 12/17/20[facility] [address] [place], [place] [address] Mammography Report Signed Patient: Zelalem Juarez#: [id number] : 1965Acct:[id number] Age/Sex: 59 / FADM Date: 12/07/24 Loc: MELINDAO Attending Dr: Shon Darling MD Ordering Physician: Name,Shon MDResults: 1Negative Date of Service: 12/07/24Follow Up: 1 Year From [facility] ina Mammogram Procedure(s): MM tomosynthesis screening BI Accession Number(s): [id number] cc: Shon Darling MD EXAMINATION: MM SCREENING [...] 12/17/24 1343 DD/ 1326 TD/TT: 12/07/24 1356 Professor Of Environmental Science: Shon Name IMG BI PROCEDURES Final Result * Colonoscopy (09/27/2024 11:44 AM EDT) Anatomical Region Laterality Modality Endoscopy Historical Provider ENDOSCOPY PROCEDURE ORDER SANJUANA Final Result * Albumin, Random Urine W/Creatinine (07/17/2024 3:01 PM EDT) Creatinine, Urine 105.55 mg/dL [facility] Microalbumin Urine 21.0 mg/L [facility] Microalbum Creatinine Ratio Ur 19.8 <30 ug/mg cr [facility] Comment:Albumin/Creatinine R atio Reference Ranges: Normal: < 30 ug/mg creatinine Microalbuminuria: 30 - 300 ug/mg creatinineClinical Albuminuria: > 300 ug/mg creatinine Urine (Urine, Random) 07/17/2024 3:01 PM EDT 07/17/2024 4:19 PM EDT us Shon Darling MD LAB URINE ORDERABLES Final Resul t Performing Organization Address [facility] de Phone Number [facility] [address] [place] [phone] * Lipid Panel, Standard (07/17/2024 3:01 PM EDT) Triglycerides 134 <150 mg/dL [facility] Comment:Desirable Triglyceri de: less than 150 mg/dLBorderline High Triglyceride 150-199 mg/dLHigh Triglyceride: 200-499 mg/dLVery High Triglyceride: greater than or equal to 5OO mg/dL Cholesterol 145 <200 mg/dL [facility] Comment:Desirable Cholestero l: less than 200 mg/dLBorderline High Cholesterol: 200-239 mg/dLHigh Cholesterol: greater than 239 mg/dL LDL Cholesterol Calculated 63 <100 mg/dL [facility] Comment:Desirable LDL: less than 100 mg/dLNear Optimal/Above Optimal LDL: 110- 129 mg/dLBorderline High LDL: 130-159 mg/dLHigh LDL: 160-189 mg/dLVery High LDL: greater than or equal to 190 mg/dL HDL Cholesterol 56 >40 mg/dL [facility] Comment:Desirable HDL: great er than 40 mg/dL Note: This HDL assay may give artificially low results in patients with liver disease. Blood Venous blood specimen / Unknown 07/17/2024 3:01 PM EDT 07/17/2024 4:49 PM EDT us Shon Darling MD LAB BLOOD ORDERABLES Final Resul t Performing Organization Address [facility] Co de Phone Number [facility] [address] [place] [phone] * Diabetes Eye Exam (10/26/2023) Pathologist [facility] Eye Exam Normal Normal us Shon Darling MD HEALTH MAINTENANCE Final Result * HEPATITIS C AB W/REFL TO HCV RNA, QN, PCR (07/24/2021 10:11 AM EDT) Pathologist [facility] HEPATITIS C ANTIBODY NON-REACT RADHA NON-REACT RADHA [facility] INDEX 0.04 <1.00 [facility] Comment: HCV antibody was non-reactive. There is no laboratory evidence of HCV infection. In most cases, no further action is required. However, if recent HCV exposure is suspected, a test for HCV RNA (test code 78592) is suggested. For additional information please refer to http://[employer]ethub.DrDoctor/faq/XUX21w7 (This link is being provided for informational/ educational purposes only.) 07/24/2021 10:1 1 AM EDT us Shon Darling MD HISTORICAL/NON ORDERABLE LABS Fi nal Result [facility] [address] * HIV 1/2 ANTIGEN/ANTIBODY,FOURTH GENERATION W/RFL (07/24/2021 10:11 AM EDT) Pathologist [facility] HIV-1/2 ANTIGEN AND ANTIBODIES, 4TH GENERATION W/ [...] purpose. For additional information please refer to http://Nethub.DrDoctor/faq/CNT122 (This link is being provided for informational/ educational purposes only.) The performance of this assay has not been clinically validated in patients less than 2 years old. 07/24/2021 10:1 1 AM EDT Shon Darling MD LAB BLOOD ORDERABLES Final Resul t Performing Organization Address [facility] Co de Phone Number [facility] [address] * THINPREP TIS PAP (02/12/2021 11:21 AM [...] along with historic and current clinical information. Comment: This Pap test has been evaluated with computer assisted technology. [facility] [employer] Delivery : SEE COMMENT [facility] Comment: MXD, CT (ASCP) CT screening location: [place] [address] Interpretation/R esult: Negative for intraepithelial lesion or malignancy. [facility] LMP: NONE GIVEN [facility] Prev. BX: NONE GIVEN [facility] Prev. PAP: NONE GIVEN [facility] SOURCE: None given [facility] Statement Of Adequacy: SEE COMMENT [facility] Comment: Satisfactory for evaluation. Endocervical/transformation zone component present. Age and/or menstrual status not provided 02/12/2021 11:2 1 AM EDT Vidya Shaw CNM LAB PATHOLOGY ORDERABLES Final Result Performing Organization Address [facility] Co de Phone Number [facility] [address] [place] [address], * HPV mRNA E6/E7 (02/12/2021 11:21 AM EDT) HPV nRNA E6/E7 Not Detected Not Detected [facility] Comment: Methodology: [employer]-Mediated Amplification This assay detects E6/E7 viral messenger RNA (mRNA) from 14 high-risk HPV types (16,18,31,33,35,39,45,51,52,56,58,59,66,68). The analytical performance characteristics of this assay have been determined by [employer]. The modifications have not been cleared or approved by the FDA. This assay has been validated pursuant to the CLIA regulations and is used for clinical purposes. For additional information, please refer to http://education.[email or web address].Meludia/faq/SFO422p5 (This link if provided for information/ educational purposes only.) 02/12/2021 11:2 1 AM EDT us Vidya Shaw CNM LAB BLOOD ORDERABLES Lizzy leigh Result [facility] Critical access hospital [address] from Last 3 Months or Most [...] 05/01/2025 Patient has chronic kidney disease 05/01/2025 Insurance [facility] MEDICARE ADVANTAGE HMO [facility] STAND ADULT Care Teams Converting Supervisor Relationship Specialty Start Date End Date Name, MD Sohn [address] [facility] [place] [address] PCP - General Family Medicine 07/03/15
--- OUTSIDE RECORDS SUMMARY | 2025-05-01 19:21 | XMS_ITS | Encounter Summary ---
Author Organization [employer] Address [address] [facility] 7t [place] [address] Care Team Providers Care Ab Initio Etl Developer Name Role Phone Name, Shon HERNÁNDEZ Primary Care Provider [phone] Reason for Visit * Reason Onset Date Comments Med Refill 05/01/2025 KATY scoring 05/01/2025 Abnormal UTOX 05/01/2025 Encounter Details Date Type Department Care Team ([facility] st Contact Info) Description 05/01/2025 Refill [facility] [address] [place] [address] Kassidy Watson, RN Bipolar I disorder (CMS/HCC) ([facility]) Social History Tobacco Use [...] Telephone Encounter - Kassidy Watson RN - 05/01/2025 9:43 AM EST Pt had [employer] RV appointment today KATY-7 Total Score: 7 (05/01/2025 9:40 AM) Previous KATY-7 done: 11/22/2024, score: 20 UTOX was Pos MTD, sent out for confirmation. Has had multiple previous UTOX Pos MTD - confirmationsreturn as Neg MTD. documented in this encounter Plan of Treatment Upcoming Encounters Date Type Department Care Team (Late st Contact Info) Description 06/05/2025 10:00 AM EST Clinical Support [facility] [address] [place] [phone] Kassidy Watson RN documented as of this [...] Weekly blood pressure task No Tony Marrero [place] Patient has chronic kidney disease Care Plan Patient has chronic kidney disease No Tony Marrero [place] Patient has chronic kidney disease Care Plan [...] documented as of this encounter Care Teams Ab Initio Etl Developer Relationship Specialty Start Date End Date Name, MD Shon [address] [place] [address] PCP - General Family Medicine 07/03/15 documented as of this encounter
--- OUTSIDE RECORDS SUMMARY | 2025-05-01 19:21 | XMS_ITS | Encounter Summary ---
Author Organization [employer] Address [address] [place] [address] Care Team Providers Care Casting Trucker Name Role Phone Name, Shon HERNÁNDEZ Primary Care Provider [phone] Reason for Visit * Reason Comments Med Refill Encounter Details Date Type Department Care Team ([facility] st Contact Info) Description 07/09/2024 Refill [facility] [address] [place], [place] [phone] Name, MD Shon [address] [place], [place] [phone] Bipolar I disorder ([facility]) Social History Tobacco Use Types Packs/Day [...] 06/05/2025 10:00 AM EST Clinical Support [facility] [address] [place] [address] Kassidy Watson RN documented as of this encounter Visit Diagnoses Diagnosis Bipolar I disorder (CMS/HCC) ([facility]) Bipolar I disorder, most recent episode (or current) unspecified documented in this encounter Additional Health Concerns Assessment Noted Time PHQ-9 Depression Total Score: 6 08/19/19 23 11:30 AM EDT documented as of this encounter Care Teams Casting Trucker Relationship Specialty Start Date End Date Name, MD Shon [address] [place] [id number] PCP - General Family Medicine 07/03/15 documented as of this encounter
--- OUTSIDE RECORDS SUMMARY | 2025-05-01 19:21 | XMS_ITS | Encounter Summary ---
Author Organization [employer] Address [address] [place] [address] [address] [place] [address] Care Team Providers Care Sticker Machine Operator Name Role Phone Name, Shon HERNÁNDEZ Primary Care Provider [phone] Reason for Visit * Reason Onset Date Comments Med Refill 03/08/2023 Encounter Details Date Type Department Care Team ([facility] st Contact Info) Description 03/08/2023 Telephone [facility] [address] [place], [place] [phone] Name, MD Shon [address] [place], [place] [phone] Med Refill Social History Tobacco Use Types [...] 1 MG tablet to be sent to [facility] pharmacy documented in this encounter Plan of Treatment Upcoming Encounters Date Type Department Care Team (Late st Contact Info) Description 06/05/2025 10:00 AM EST Clinical Support [facility] [address] [place] [address] Kassidy Watson, MARY JANE documented as of this encounter Visit Diagnoses Not on filedocumented in this encounter Additional Health Concerns Assessment Noted Time PHQ-9 Depression Total Score: 6 08/19/19 23 11:30 AM EDT documented as of this encounter Care Teams Sticker Machine Operator Relationship Specialty Start Date End Date Name, MD Shon [address] [place] [address] PCP - General Family Medicine 07/03/15 documented as of this encounter
== END 2025-05-01 19:18 | disposition home or self-care (01) ==
LOC: HO.HHCLNP 19:17
PROVIDERS: Visit Provider Internal Medicine Geriatric Medicine
DX: Z79.899 Other long term (current) drug therapy (principal)
CPT/HCPCS: 36415; 80307